=== PATIENT | female | born 1930 | race Caucasian/White ===

== ENCOUNTER 2016-11-28 10:41 | Inpatient (IN) | payer MEDICARE, MEDICAID ==
[~2016-11-28] VITALS: Ht 177.8 cm; Wt 89.6 kg
[2016-11-28 11:49] LABS: BASO # 0.1 K/mm3 (0.0-0.2); BASO % 1.5 % (0.0-1.0); EOS % 0.4 % (0.0-3.0); LARGE UNSTAINED CELL # 0.1 K/mm3 (0.0-0.4); LARGE UNSTAINED CELL % 1.3 % (0.0-4.0); LYMPH % 14.9 % (24.0-44.0); MEAN CORPUSCULAR HEMOGLOBIN 21.9 pg (27.0-33.0); MEAN CORPUSCULAR HGB CONC 29.6 g/dl (32.0-36.5); MEAN CORPUSCULAR VOLUME 74.1 fl (80.0-96.0); MONO # 0.4 K/mm3 (0.0-0.8); MONO % 7.1 % (0.0-5.0); NEUTROPHILS # 4.7 K/mm3 (1.8-7.7); NEUTROPHILS % 74.9 % (36.0-66.0); PLATELET COUNT, AUTOMATED 297 k/mm3 (150-450); RED CELL DISTRIBUTION WIDTH 19.4 % (11.5-14.5); WHITE BLOOD COUNT 6.2 K/mm3 (4.0-10.0)
[2016-11-28 11:50] LABS: INR 0.89
[2016-11-28 12:01] LABS: ADD MORPHOLOGY? YES
[2016-11-28 12:06] LABS: CALCIUM LEVEL 8.7 MG/DL (8.8-10.2); CREATININE FOR GFR 1.33 MG/DL (0.55-1.02); GLOMERULAR FILTRATION RATE 40.3 (>32); POTASSIUM SERUM 3.3 MEQ/L (3.5-5.1)
[2016-11-28 12:17] LABS: ANISOCYTOSIS 2+; HYPOCHROMASIA 2+; MICROCYTOSIS 2+; POIKILOCYTOSIS 1+
[2016-11-28] MEDS ORDERED: OMEP40CA2 PO (13:21)
[2016-11-28] MEDS ORDERED: ARIC5TAB PO (13:21)
[2016-11-28] MEDS ORDERED: VENL75TA2 PO (13:21)
[2016-11-28] MEDS ORDERED: ASPI81TA85 PO (13:21)
[2016-11-28] MEDS ORDERED: IBUPOTC PO (13:21)
[2016-11-28] MEDS ORDERED: SYNT75TA PO (13:21)
[2016-11-28] MEDS ORDERED: NORV5TAB PO (13:21)
[2016-11-28] MEDS ORDERED: ASPIRIN 325 MG TAB PO ONE (13:30)
[2016-11-28] MEDS ORDERED: ASPIRIN 81 MG CHEW TABLET As Ordered ONE (13:34)
[2016-11-28 20:00] VITALS: BP 144/91
[2016-11-28] MEDS ORDERED: ATORVASTATIN 20 MG TAB As Ordered ONE ×2 (20:08→20:47)
[2016-11-28] MEDS ORDERED: CLOPIDOGREL 75 MG TAB As Ordered ONE (20:08)
[2016-11-28] MEDS: CLOPIDOGREL 75 MG TAB PO SCH (20:11)
[2016-11-28] MEDS: ATORVASTATIN 20 MG TAB PO SCH ×2 (20:21→20:50)
[2016-11-28] MEDS: NS 1,000 ML IV SCH (21:56)
[2016-11-28 23:17] LABS: TOTAL PROTEIN 6.6 GM/DL (6.4-8.2)
[2016-11-29] VITALS (9 sets, daily range): BP systolic 144–159; BP diastolic 82–98
--- NOTE | 2016-11-29 05:46 | EDDOCDS ---
Physician Documentation [facility] Name: Rachael Samuel Age: 86 yrs Sex: Female : 1930 Arrival Date: 11/28/2016 Time: 10:41 Bed Admit Hold Private MD: Disposition: 11/28/16 13:17 Hospitalization ordered by Sinan Rodas for Inpatient Admission. 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 - Bed requested for M ICU. - Status is Inpatient Admission. [id number] - Condition is Stable. - Problem is new. - Symptoms are unchanged. Historical: - Allergies: no known allergies; - Home Meds: 1. Effexor 75 mg Oral tab 2 tab once daily 2. levothyroxine 75 mcg Oral cap once daily 3. Prilosec 40 mg Oral cpDR once daily 4. aspirin 81 mg Oral TbEC once daily - PMHx: Hypothyroidism; Hypertension; Dementia; - PSHx: left ankle; Cholecystectomy; cataract surgery; - Family history: Not pertinent. - Social history: Smoking status: Patient states former smoker of tobacco. No barriers to communication noted, The patient speaks fluent [place]ese, Speaks appropriately for age. - : The pt / caregiver states he / she is not on anticoagulants. Home medication list is obtained from family members, [employer]Portal import data. - Exposure Risk Screening:: None identified. Vital Signs: 11/28 10:47 BP 159 / 89; Pulse 92; Resp 18; Temp 97.7(O); Pulse Ox 97% on R/A; Weight 83.46 kg / ead 184 lbs (R); Height 5 ft. 10 in. (177.80 cm) (R); Pain 0/10; 11:28 Pulse 92 MON; Pulse Ox 96% ; ead 11:28 BP 156 / 97 (auto/); ead 11:43 BP 148 / 93 (auto/); ead 11:43 Pulse 92 MON; Pulse Ox 96% ; ead 11:58 BP 162 / 99 (auto/); ead 11:58 Pulse 92 MON; Pulse Ox 95% ; ead 12:13 BP 154 / 86 (auto/); ead 12:13 Pulse 90 MON; Pulse Ox 96% ; ead 12:28 BP 161 / 99 (auto/); ead 12:28 Pulse 92 MON; Pulse Ox 96% ; ead 13:20 BP 169 / 103 (auto/); ead 13:20 Pulse 92 MON; Pulse Ox 96% ; ead 13:28 BP 166 / 102 (auto/); ead 13:28 Pulse 92 MON; Pulse Ox 95% ; ead 13:43 BP 168 / 106 (auto/); ead 13:43 Pulse 88 MON; Pulse Ox 96% ; ead 13:58 BP 187 / 91 (auto/); ead 13:58 Pulse 90 MON; Pulse Ox 96% ; ead 14:18 Pulse 88 MON; Pulse Ox 95% ; ead 14:18 BP 182 / 88 (auto/); ead 14:28 BP 180 / 91 (auto/); ead 14:28 Pulse 96 MON; Resp 18; Pulse Ox 96% on R/A; ead 14:43 BP 166 / 94 (auto/); ead 14:43 Pulse 90 MON; Pulse Ox 95% ; ead 14:58 BP 164 / 91 (auto/); ead 14:58 Pulse 94 MON; Pulse Ox 95% ; ead 15:13 BP 135 / 75 (auto/); ead 15:21 Pulse 88 MON; Pulse Ox 95% ; ead 15:28 BP 148 / 77 (auto/); ead 15:29 Pulse 90 MON; Pulse Ox 95% ; ead 15:43 BP 144 / 88 (auto/); ead 15:44 Pulse 92 MON; Pulse Ox 94% ; ead 15:58 BP 137 / 86 (auto/); ead 16:00 Pulse 88 MON; Pulse Ox 94% ; ead 10:47 Body Mass Index 26.40 (83.46 kg, 177.80 cm) ead MDM: 10:54 RN interventions must not delay CT ordered. fg 10:54 Dynamo Tender/Pulse Ox/q 15 min VS ordered. fg 10:54 Accucheck ordered. fg 10:54 IV Saline Lock ordered. fg 10:54 Neuro VS q 15 Minutes ordered. fg 10:54 Patient must be on CC stretcher and weighed via bed scale ordered. fg 10:54 Rhythm Strip to chart ordered. fg 10:54 Stroke assessment pack to bedside ordered. fg 10:55 Basic Metabolic Profile Ordered. EDMS 10:55 CBC with Diff Ordered. EDMS 10:55 Partial Thromboplastin Time Ordered. EDMS 10:55 Prothrombin Time Profile\E\INR Ordered. EDMS 10:55 Type & Screen Ordered. EDMS 10:55 CT Head Without Contrast Ordered. EDMS 10:55 Chest, 1 View Ordered. EDMS 10:56 ECG WITH READING ER PHYS+CARDIAG ordered. EDMS 11:01 Financial registration complete. mm15 11:39 BED REQUEST+ADM ordered. EDMS 11:41 [facility] [place] into [employer] and attached to record. lg 12:03 RBC MORPH PROF NO CHARGE Ordered. EDMS 13:18 Aspirin 324 mg PO once ordered. fg 15:04 Admission / Observation Status ordered. EDMS 15:04 ECHOCARD,DOPPLER/COLOR FLOW ordered. EDMS 15:04 REGULAR DIET ordered. EDMS 15:05 CARDIAC MARKER PANEL Ordered. EDMS 15:05 CARDIAC MARKER PANEL Ordered. EDMS 15:05 ANTINUCLEAR ANTIBODIES Ordered. EDMS 15:05 ANTI-SJOGRENS A & B ANTIBODIES Ordered. EDMS 15:05 ERYTHROCYTE SEDIMENTATION RATE Ordered. EDMS 15:06 MRI Brain without Contrast Ordered. EDMS 15:06 MRA BRAIN W/O CONTRAST Ordered. EDMS 15:56 ANTI-CARDIOLIPIN ANTIBODIES Ordered. EDMS 16:08 Lupus Type Anticoagulant Ordered. EDMS 16:08 FACTOR II PROTHROMBIN GENE AN Ordered. EDMS 17:43 T-Sheet-- Draft Copy was scanned into [employer] and attached to record. klr 19:32 CARDIAC MARKER PANEL Ordered. EDMS 19:32 CBC WITH DIFFERENTIAL Ordered. EDMS 20:47 URINALYSIS Ordered. EDMS 20:47 URINE CULTURE Ordered. EDMS 23:24 COMPLETE COMPHRENSIVE METABOLI Ordered. EDMS 11/29 05:31 MRSA SCREEN Ordered. EDMS Administered Medications: 11/28 13:35 Drug: Aspirin 324 mg [aspirin 81 mg chewable tablet (4 tabs)] {Note: 3 tabs 81 mg ead given. daughter states pt had 1 tab 81mg at home this morning.} Route: PO; Signatures: Dispatcher [employer] EDMS Belia Holm, RN RN daFifi Nunez, Reg Reg lg Roseline Vargas RN RN [id number] Ed Gonzales mm15 Nella Cancino RN RN ead Steggeman, Michele, RN RN [facility] Birce, MD MD rena Trejo Kathie klr The chart was reviewed and I authenticate all verbal orders and agree with the evaluation and treatment provided.Corrections: (The following items were deleted from the chart) 11:03 10:56 Social history Smoking status: Patient states was never smoker of tobacco. No ead barriers to communication noted, The patient speaks fluent [place]ese, Speaks appropriately for age, ead 15:53 15:05 ANTI-CARDIOLIPIN ANTIBODIES ordered. EDMS EDMS 16:07 15:05 Lupus Type Anticoagulant ordered. EDMS EDMS 16:07 15:05 FACTOR II PROTHROMBIN GENE AN ordered. EDMS EDMS 22:23 22:16 ANTINUCLEAR ANTIBODIES ordered. EDMS EDMS 22:37 22:16 Lupus Type Anticoagulant ordered. EDMS EDMS 22:37 22:16 PROTEIN C ANTIGEN ordered. EDMS EDMS 22:38 22:16 PROTEIN S ANTIGEN(TOT&FREE) ordered. EDMS EDMS 22:38 22:16 SERUM PROTEIN ELECTROPHORESIS ordered. EDMS EDMS 22:38 22:16 ANTI THROMBIN 3 ANTIGEN LEVEL ordered. EDMS EDMS 23:24 19:32 COMPLETE COMPHRENSIVE METABOLI ordered. EDMS EDMS Attachments: 11:41 [facility] Payment Agreement lg 17:43 T-Sheet-- Draft Copy klr MTDD
--- NOTE | 2016-11-29 05:46 | EDDOCDS ---
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 ead reports pt can move right leg, but does not want to bare weight on right side. has not had BP meds today. blood glucose of 127. 20 gauge IV to left AC per EMS. Family reported pt has hx of dementia, reports pt is her normal mentation. The last date and time the patient was known to be well was was at 02:30 on November 27, 2016. An acute neurological deficit is present. The charge nurse has been notified. The patient has been moved to a treatment area. The patients blood glucose was checked before arriving to the hospital and was found to be normal. Adult Sepsis Screening: The patient does not have new or worsening altered mentation. Patient's respiratory rate is less than 22. Systolic blood pressure is greater than 100. Patient has a qSOFA score of 0- Negative Sepsis Screen. Suicide/Homicide risk assessment- the patient denies having any suicidal and/or homicidal ideations and does not present with any other emotional, behavioral or mental health complaints. Status: Patient is not a service director or dependent. Transition of care: patient was not received from another setting of care. 10:47 Acuity: VLADIMIR Level 3 ead 10:47 Method Of Arrival: Ambulance ead Triage Assessment: 10:47 The onset of the patients symptoms was more than three hours ago. General: Appears in ead no apparent distress, comfortable, well nourished, well groomed, Behavior is appropriate for age, cooperative, pleasant. Pain: Denies pain. The patient is triaged at the bedside. See Assessment in Nurses Notes section of ED record. Neurological: Level of Consciousness is awake, alert, obeys commands, Oriented to person, place, Flatbed Stitcher are equal bilaterally Weakness in right arm(s) leg(s) Speech is normal, Facial symmetry appears normal, Facial symmetry: tongue is midline, Pupils are PERRLA, equal sensation. Reports no additional symptoms. Cardiovascular: Chest pain is denied. Respiratory: Airway is patent Respiratory effort is even, unlabored. Derm: Skin is pink, warm & dry. Historical: - Allergies: no known allergies; - Home Meds: 1. Effexor 75 mg Oral tab 2 tab once daily 2. levothyroxine 75 mcg Oral cap once daily 3. Prilosec 40 mg Oral cpDR once daily 4. aspirin 81 mg Oral TbEC once daily - PMHx: Hypothyroidism; Hypertension; Dementia; - PSHx: left ankle; Cholecystectomy; cataract surgery; - Family history: Not pertinent. - Social history: Smoking status: Patient states former smoker of tobacco. No barriers to communication noted, The patient speaks fluent Taiwanese, Speaks appropriately for age. - : The pt / caregiver states he / she is not on anticoagulants. Home medication list is obtained from family members, [employer] import data. - Exposure Risk Screening:: None identified. Screenin:03 Screening information is obtained from family members. Fall risk: At risk due to right ead sided weakness. Assistance ADL's: Requires assistance with meal preparation, this assistance is provided by family members, Meals on Wheels, bathing, assistance is provided by family members, housework, assistance is provided by family members, medication administration, assistance is provided by family members. Nutritional screening: No deficits noted. Advance Directives: Currently, there is a health care proxy, Tatiana Samuel (daughter in law) Akshat Samuel (son). There is an active DNR order and the pt has a copy here at this time. There is no living will. There is no Power of Roller Shop Utility Worker. information regarding advance directives can be obtained from Tatiana [phone]. home support is adequate. 17:50 Abuse/DV Screen: The patient / caregiver reports he/she is: not in a situation that ead causes fear, pain or injury. Assessment: 11:52 Neurological: Level of Consciousness is awake, alert, obeys commands, Oriented to ead person, place, Flatbed Stitcher are equal bilaterally Weakness in right arm(s) leg(s) Speech is normal, Facial symmetry appears normal. Respiratory: Airway is patent Respiratory effort is even, unlabored. Derm: Skin is pink, warm & dry. 12:15 Neurological: Level of Consciousness is awake, alert, obeys commands, Oriented to ead person, place, Flatbed Stitcher are equal bilaterally Weakness in right arm(s) leg(s) Speech is normal, Facial symmetry appears normal. 12:30 Neurological: Level of Consciousness is awake, alert, obeys commands, Oriented to ead person, place, Flatbed Stitcher are equal bilaterally Weakness in right arm(s) leg(s). 13:00 General: Appears in no apparent distress, comfortable, Behavior is appropriate for age, ead cooperative. Pain: Denies pain. Neurological: Level of Consciousness is awake, alert, obeys commands, Oriented to person, place, Flatbed Stitcher are equal bilaterally Weakness in right arm(s) leg(s) Speech is normal, Facial symmetry appears normal. Respiratory: Airway is patent Respiratory effort is even, unlabored. Derm: Skin is pink, warm & dry. 13:15 Neurological: Level of Consciousness is awake, alert, obeys commands, Oriented to ead person, place, Flatbed Stitcher are equal bilaterally Weakness in right arm(s) leg(s) Speech is normal, Facial symmetry appears normal. 13:30 Neurological: Level of Consciousness is awake, alert, obeys commands, Oriented to ead person, place, Flatbed Stitcher are equal bilaterally Weakness in right arm(s) leg(s) Speech is normal, Facial symmetry appears normal. 14:35 General: Appears in no apparent distress, comfortable, Behavior is. General: ead Hospitalist COPIER FIELD SERVICE TECHNICIAN at bedside to examine pt. . Neurological: Level of Consciousness is awake, alert, obeys commands, Oriented to person, place. Respiratory: Airway is patent Respiratory effort is even, unlabored. Derm: Skin is pink, warm & dry. 14:50 General: Appears in no apparent distress, comfortable, Behavior is appropriate for age, ead cooperative. Neurological: Level of Consciousness is awake, alert, obeys commands, Oriented to person, place, Flatbed Stitcher are equal bilaterally Weakness in right arm(s) leg(s) Speech is normal, Facial symmetry appears normal. 15:15 Neurological: Level of Consciousness is awake, alert, obeys commands, Oriented to ead person, place, Flatbed Stitcher are equal bilaterally Weakness in right arm(s) leg(s) Speech is normal, Facial symmetry appears normal. 16:06 Adult Sepsis Screening: The patient does not have new or worsening altered mentation. ead Patient's respiratory rate is less than 22. Systolic blood pressure is greater than 100. Patient has a qSOFA score of 0- Negative Sepsis Screen. 17:05 General: pt to MRI via stretcher per ED YOUTH LIAISON OFFICER. . ead Vital Signs: 10:47 BP 159 / 89; Pulse 92; Resp 18; Temp 97.7(O); Pulse Ox 97% on R/A; Weight 83.46 kg (R); ead Height 5 ft. 10 in. (177.80 cm) (R); Pain 0/10; 11:28 Pulse 92 MON; Pulse Ox 96% ; ead 11:28 BP 156 / 97 (auto/); ead 11:43 BP 148 / 93 (auto/); ead 11:43 Pulse 92 MON; Pulse Ox 96% ; ead 11:58 BP 162 / 99 (auto/); ead 11:58 Pulse 92 MON; Pulse Ox 95% ; ead 12:13 BP 154 / 86 (auto/); ead 12:13 Pulse 90 MON; Pulse Ox 96% ; ead 12:28 BP 161 / 99 (auto/); ead 12:28 Pulse 92 MON; Pulse Ox 96% ; ead 13:20 BP 169 / 103 (auto/); ead 13:20 Pulse 92 MON; Pulse Ox 96% ; ead 13:28 BP 166 / 102 (auto/); ead 13:28 Pulse 92 MON; Pulse Ox 95% ; ead 13:43 BP 168 / 106 (auto/); ead 13:43 Pulse 88 MON; Pulse Ox 96% ; ead 13:58 BP 187 / 91 (auto/); ead 13:58 Pulse 90 MON; Pulse Ox 96% ; ead 14:18 Pulse 88 MON; Pulse Ox 95% ; ead 14:18 BP 182 / 88 (auto/); ead 14:28 BP 180 / 91 (auto/); ead 14:28 Pulse 96 MON; Resp 18; Pulse Ox 96% on R/A; ead 14:43 BP 166 / 94 (auto/); ead 14:43 Pulse 90 MON; Pulse Ox 95% ; ead 14:58 BP 164 / 91 (auto/); ead 14:58 Pulse 94 MON; Pulse Ox 95% ; ead 15:13 BP 135 / 75 (auto/); ead 15:21 Pulse 88 MON; Pulse Ox 95% ; ead 15:28 BP 148 / 77 (auto/); ead 15:29 Pulse 90 MON; Pulse Ox 95% ; ead 15:43 BP 144 / 88 (auto/); ead 15:44 Pulse 92 MON; Pulse Ox 94% ; ead 15:58 BP 137 / 86 (auto/); ead 16:00 Pulse 88 MON; Pulse Ox 94% ; ead 10:47 Body Mass Index 26.40 (83.46 kg, 177.80 cm) ead Vitals: 10:41 Glucose Measurement D-stick done by EMS. Log In Time N/A - ambulance arrival. ead ED Course: 10:42 Patient visited by Renee Anaya, Layboy Tender. deg 10:42 Patient moved to Waiting deg 10:43 Nella Cancino RN is Primary Nurse. deg 10:43 Maya Brice MD is Attending Physician. fg 10:43 Patient visited by Maya Brice MD. fg 10:43 Patient moved to 10 deg 10:53 Triage Initiated ead 11:05 EKG done. (by ED staff). Reviewed by Maya Brice MD. rn1 11:07 Patient visited by Nella Cancino RN. ead 11:36 Patient visited by Nella Cancino,JOSEFINA. ead 11:37 The patient / caregiver is instructed regarding the plan of care and ED course. Patient ead has correct armband on for positive identification. Placed in gown. Bed in low position. Call light in reach. Side rails up X 1. Adult w/ patient. youth nutritional monitor on. Pulse ox on. NIBP on. 11:37 Basic Metabolic Profile Sent. ead 11:37 CBC with Diff Sent. ead 11:37 Partial Thromboplastin Time Sent. ead 11:37 Prothrombin Time Profile\E\INR Sent. ead 11:37 Maintain field IV. Dressing intact. Good blood return noted. Site clean & dry. Gauge & ead site: 20 LEFT AC PER EMS. 11:38 Type & Screen Sent. ead 11:41 [facility] Payment Agreement was scanned into [employer] and attached to record. lg 12:34 Patient visited by Nella Cancino,JOSEFINA. ead 13:17 Sinan Rodas MD is Hospitalizing Provider. fg 17:13 Patient moved to [facility] nb2 17:43 T-Sheet-- Draft Copy was scanned into [employer] and attached to record. klr 18:04 Patient moved to 21 dls 18:42 Patient visited by Kelly Pichardo. nb2 18:42 Assisted with bedpan. nb2 19:15 Patient moved to Admit Hold [facility] 11/29 02:54 Primary Nurse role handed off by Nella CancinoRN harshal Administered Medications: 11/28 13:35 Drug: Aspirin 324 mg [aspirin 81 mg chewable tablet (4 tabs)] {Note: 3 tabs 81 mg ead given. daughter states pt had 1 tab 81mg at home this morning.} Route: PO; Order Results: Lab Order: Basic Metabolic Profile; SPEC'M 11/28/16 11:34 Test: GLUCOSE, FASTING; Value: 129; Range: 83-110; Abnormal: Above high normal; Units: MG/DL; Status: F Test: BLOOD UREA NITROGEN; Value: 22; Range: 7-18; Abnormal: Above high normal; Units: MG/DL; Status: F Test: CREATININE FOR GFR; Value: 1.33; Range: 0.55-1.02; Abnormal: Above high normal; Units: MG/DL; Status: F Test: GLOMERULAR FILTRATION RATE; Value: 40.3; Range: >32; Status: F Test: SODIUM LEVEL; Value: 143; Range: 136-145; Units: MEQ/L; Status: F Test: POTASSIUM SERUM; Value: 3.3; Range: 3.5-5.1; Abnormal: Below low normal; Units: MEQ/L; Status: F Test: CHLORIDE LEVEL; Value: 107; Range: 98-107; Units: MEQ/L; Status: F Test: CARBON DIOXIDE LEVEL; Value: 28; Range: 21-32; Units: MEQ/L; Status: F Test: ANION GAP; Value: 8; Range: 8-16; Units: MEQ/L; Status: F Test: CALCIUM LEVEL; Value: 8.7; Range: 8.8-10.2; Abnormal: Below low normal; Units: MG/DL; Status: F Test Note: ; Units are mL/min/1.73 m2 Chronic Kidney Disease Staging per NKF: Stage I & II GFR >=60 Normal to Mildly Decreased Stage III GFR 30-59 Moderately Decreased Stage IV GFR 15-29 Severely Decreased Stage V GFR <15 Very Little GFR Left ESRD GFR <15 on SPINNING BATH PATROLLER Lab Order: CBC with Diff; SPEC'M 11/28/16 11:34 Test: WHITE BLOOD COUNT; Value: 6.2; Range: 4.0-10.0; Units: K/mm3; Status: F Test: RED BLOOD COUNT; Value: 4.80; Range: 4.00-5.40; Units: M/mm3; Status: F Test: HEMOGLOBIN; Value: 10.5; Range: 12.0-16.0; Abnormal: Below low normal; Units: g/dl; Status: F Test: HEMATOCRIT; Value: 35.6; Range: 36.0-47.0; Abnormal: Below low normal; Units: %; Status: F Test: MEAN CORPUSCULAR VOLUME; Value: 74.1; Range: 80.0-96.0; Abnormal: Below low normal; Units: fl; Status: F Test: MEAN CORPUSCULAR HEMOGLOBIN; Value: 21.9; Range: 27.0-33.0; Abnormal: Below low normal; Units: pg; Status: F Test: MEAN CORPUSCULAR HGB CONC; Value: 29.6; Range: 32.0-36.5; Abnormal: Below low normal; Units: g/dl; Status: F Test: RED CELL DISTRIBUTION WIDTH; Value: 19.4; Range: 11.5-14.5; Abnormal: Above high normal; Units: %; Status: F Test: PLATELET COUNT, AUTOMATED; Value: 297; Range: 150-450; Units: k/mm3; Status: F Test: NEUTROPHILS %; Value: 74.9; Range: 36.0-66.0; Abnormal: Above high normal; Units: %; Status: F Test: LYMPH %; Value: 14.9; Range: 24.0-44.0; Abnormal: Below low normal; Units: %; Status: F Test: MONO %; Value: 7.1; Range: 0.0-5.0; Abnormal: Above high normal; Units: %; Status: F Test: EOS %; Value: 0.4; Range: 0.0-3.0; Units: %; Status: F Test: BASO %; Value: 1.5; Range: 0.0-1.0; Abnormal: Above high normal; Units: %; Status: F Test: LARGE UNSTAINED CELL %; Value: 1.3; Range: 0.0-4.0; Units: %; Status: F Test: NEUTROPHILS #; Value: 4.7; Range: 1.8-7.7; Units: K/mm3; Status: F Test: LYMPH #; Value: 1.0; Range: 1.5-4.5; Abnormal: Below low normal; Units: K/mm3; Status: F Test: MONO #; Value: 0.4; Range: 0.0-0.8; Units: K/mm3; Status: F Test: EOS #; Value: 0.0; Range: 0.0-0.50; Units: K/mm3; Status: F Test: BASO #; Value: 0.1; Range: 0.0-0.2; Units: K/mm3; Status: F Test: LARGE UNSTAINED CELL #; Value: 0.1; Range: 0.0-0.4; Units: K/mm3; Status: F Lab Order: Partial Thromboplastin Time; [facility] 11/28/16 11:34 Test: PARTIAL THROMBOPLASTIN TIME; Value: 25.9; Range: 26.6-37.1; Abnormal: Below low normal; Units: SECONDS; Status: F Lab Order: Prothrombin Time Profile\E\INR; [facility] 11/28/16 11:34 Test: PROTHROMBIN TIME; Value: 12.1; Range: 12.3-14.5; Abnormal: Below low normal; Units: SECONDS; Status: F Test: INR; Value: 0.89; Status: F Test Note: ; THERAPUTIC HUMAN INR VALUES INDICATIONS NORMAL RANGES PROPHYLAXIS/TREATMENT OF: VENOUS THROMBOSIS 2.0-3.0 PULMONARY EMBOLISM 2.0-3.0 PREVENTION OF SYSTEMIC EMBOLISM FROM: TISSUE HEART VALVES 2.0-3.0 ACUTE MYOCARDIAL INFARCTION 2.0-3.0 VALVULAR HEART DISEASE 2.0-3.0 ATRIAL FIBRILLATION 2.0-3.0 MECHANICAL VALVES(HIGH RISK) 2.5-3.5 RECURRENT MYOCARDIAL INFARCTION 2.5-3.5 Lab Order: Type & Screen; [facility] 11/28/16 11:34 Test: BLOOD TYPE; Value: O POS; Status: F Test: AB SCREEN (INDIRECT VÍCTOR)GEL; Value: NEGATIVE; Status: F Lab Order: RBC MORPH PROF NO CHARGE; [facility] 11/28/16 11:34 Test: PLATELET ESTIMATE; Range: NORMAL; Status: I Test: HYPOCHROMASIA; Value: 2+; Status: F Test: POIKILOCYTOSIS; Value: 1+; Status: F Test: ANISOCYTOSIS; Value: 2+; Status: F Test: MICROCYTOSIS; Value: 2+; Status: F Test: PLATELET ESTIMATE; Value: NORMAL; Range: NORMAL; Status: F Lab Order: CARDIAC MARKER PANEL; [facility] 11/28/16 16:05 Test: CPK CREATINE PHOSPHOKINASE; Value: 215; Range: 26-192; Abnormal: Above high normal; Units: U/L; Status: F Test: CK-MB VALUE MASS; Value: 2.0; Range: 0.0-3.6; Units: NG/ML; Status: F Test: MB/CK RELATIVE INDEX; Value: 0.93; Range: < OR =4; Status: F Test: TROPONIN I; Value: 0.03; Range: < 0.10; Units: NG/ML; Status: F Test Note: ; DIAGNOSIS CRITERIA MMB ng/ml Relative Index (RI) NON-AMI < or = 5 N/A MADRID ZONE > 5 < or = 4 AMI > 5 > 4 Lab Order: CARDIAC MARKER PANEL; [facility] 11/28/16 22:30 Test: CPK CREATINE PHOSPHOKINASE; Value: 271; Range: 26-192; Abnormal: Above high normal; Units: U/L; Status: F Test: CK-MB VALUE MASS; Value: 2.1; Range: 0.0-3.6; Units: NG/ML; Status: F Test: MB/CK RELATIVE INDEX; Value: 0.77; Range: < OR =4; Status: F Test: TROPONIN I; Value: 0.02; Range: < 0.10; Abnormal: Delta; Units: NG/ML; Status: F Test Note: ; DIAGNOSIS CRITERIA MMB ng/ml Relative Index (RI) NON-AMI < or = 5 N/A MADRID ZONE > 5 < or = 4 AMI > 5 > 4 Lab Order: ERYTHROCYTE SEDIMENTATION RATE; [facility] 11/28/16 11:34 Test: ERYTHROCYTE SEDIMENTATION RATE; Value: 15; Range: 0-42; Units: mm/hr; Status: F Lab Order: SERUM PROTEIN ELECTROPHORESIS; SPEC'M 11/28/16 22:30 Test: ALBUMIN %; Range: 55.8-66.1; Units: %; Status: I Test: YTTIN-0-OANQLZES %; Range: 2.9-4.9; Units: %; Status: I Test: OBUVF-1-MXABYNYEA %; Range: 7.1-11.8; Units: %; Status: I Test: OHCN-3-JUCBUCFYH %; Range: 4.7-7.2; Units: %; Status: I Test: VDHV-5-DYHOCGUPS %; Range: 3.2-6.5; Units: %; Status: I Test: GAMMA GLOBULIN %; Range: 11.1-18.8; Units: %; Status: I Test: ALBUMIN; Range: 3.29-5.55; Units: GM/DL; Status: I Test: UUSBX-2-QIWAEQSRG; Range: 0.17-0.41; Units: GM/DL; Status: I Test: XDRUL-4-BXIJTKPVC; Range: 0.42-0.99; Units: GM/DL; Status: I Test: IZDL-6-TDROHGNWW; Range: 0.28-0.60; Units: GM/DL; Status: I Test: VOVL-8-ULBDNJNLC; Range: 0.19-0.55; Units: GM/DL; Status: I Test: GAMMA GLOBULINS; Range: 0.65-1.58; Units: GM/DL; Status: I Test: TOTAL PROTEIN; Value: 6.6; Range: 6.4-8.2; Units: GM/DL; Status: F Test: SPEP INTERPRETATION; Status: I Outcome: 13:17 Decision to Hospitalize by Provider. fg 17:50 CT Study completed. MRI Study completed. ead 17:50 Discharge Assessment: patient administered narcotics - no. ead 11/29 05:45 Patient left the ED. sls1 Signatures: Renee Anaya, Layboy Tender Unit deg Marti Trujillo RN RN Fifi Collazo, Martin Reg lg Roseline Vargas RN RN sls1 Chris Saravia RN RN jmb Dunaway, EmilyRN RN ead Kenji Langley rn1 Maya Brice MD MD Zuleyma Calvin Nicole nb2 Corrections: (The following items were deleted from the chart) 11/28 11:03 10:47 BP 159 / 89; Pulse 92bpm; Resp 18bpm; Pulse Ox 97% RA; Temp 97.7F Oral; Pain ead 0/10; ead 11: 10:56 Social history Smoking status: Patient states was never smoker of tobacco. No ead barriers to communication noted, The patient speaks fluent Taiwanese, Speaks appropriately for age, ead 11:03 Advance Directives: Currently, there is no health care proxy. There is an active ead DNR order and the pt has a copy here at this time. There is no living will. There is no Power of Roller Shop Utility Worker. ead 10:47 Presenting complaint: EMS states: right arm weakness since 0230 yesterday ead morning. reports pt can move right leg, but does not want to bare weight on right side. has not had BP meds today. blood glucose od 127. 20 gauge IV to left AC per EMS. Family reported pt has hx of dementia, reports pt is her normal mentation. ead MTDD
[2016-11-29] MEDS: LEVOTHYROXINE 0.075 MG TAB (75 MCG) PO SCH (06:15)
[2016-11-29 07:04] LABS: BASO # 0.1 K/mm3 (0.0-0.2); BASO % 1.4 % (0.0-1.0); EOS # 0.1 K/mm3 (0.0-0.50); EOS % 0.8 % (0.0-3.0); LARGE UNSTAINED CELL # 0.1 K/mm3 (0.0-0.4); LARGE UNSTAINED CELL % 1.7 % (0.0-4.0); LYMPH # 1.3 K/mm3 (1.5-4.5); MEAN CORPUSCULAR HGB CONC 30.1 g/dl (32.0-36.5); MEAN CORPUSCULAR VOLUME 73.1 fl (80.0-96.0); MONO # 0.5 K/mm3 (0.0-0.8); MONO % 6.6 % (0.0-5.0); NEUTROPHILS # 5.1 K/mm3 (1.8-7.7); NEUTROPHILS % 72.5 % (36.0-66.0); PLATELET COUNT, AUTOMATED 296 k/mm3 (150-450); RED CELL DISTRIBUTION WIDTH 19.4 % (11.5-14.5); WHITE BLOOD COUNT 7.1 K/mm3 (4.0-10.0)
[2016-11-29 07:08] LABS: ALBUMIN 3.3 GM/DL (3.2-5.2); ALBUMIN/GLOBULIN RATIO 1.1 (1.00-1.93); BILIRUBIN,TOTAL 0.4 MG/DL (0.2-1.0); CALCIUM LEVEL 8.4 MG/DL (8.8-10.2); CREATININE FOR GFR 1.16 MG/DL (0.55-1.02); GLOMERULAR FILTRATION RATE 47.2 (>32); POTASSIUM SERUM 3.5 MEQ/L (3.5-5.1); TOTAL PROTEIN 6.3 GM/DL (6.4-8.2)
[2016-11-29 07:32] LABS: ADD MORPHOLOGY? YES
[2016-11-29 07:56] LABS: ANISOCYTOSIS 2+; HYPOCHROMASIA 2+; MICROCYTOSIS 2+; POIKILOCYTOSIS 1+
[2016-11-29] MEDS ORDERED: OMEPRAZOLE 20 MG CAP PO SCH (09:00)
[2016-11-29] MEDS ORDERED: VENLAFAXINE **XR** 75MG CAPSULE PO SCH (09:00)
[2016-11-29] MEDS: VENLAFAXINE 37.5 MG TAB PO SCH (09:20)
[2016-11-29] MEDS: DONEPEZIL 5 MG TAB PO SCH (09:21)
[2016-11-29] MEDS: ASPIRIN 81 MG ENTERIC TAB PO SCH (09:21)
[2016-11-29] MEDS: CLOPIDOGREL 75 MG TAB PO SCH (09:21)
[2016-11-29] MEDS: PANTOPRAZOLE 40MG TAB (PROTONIX) PO SCH (09:21)
--- NOTE | 2016-11-29 09:26 | IPNPDOC ---
Assessment/Plan Date Seen The patient was seen on 11/29/16. Family Medicine Attending Note: I saw and examined Mrs. Samuel, discussed with GURVINDER Malcolm. Agree with their note as documented. Mrs. Samuel is doing about the same today. Nursing feels that possibly her strength is improving a little in the lower extremity; I am not able to detect a substantial difference from yesterday, but they examine her more. Anticipating evaluation by occupational and physical therapies tomorrow. The patient and her daughter-in- law are aware that she is likely to need, at minimum, subacute rehabilitation after this episode. They are aware she may not be able to return to her home setting. I discussed her care today with Dr. Indio Saleem. He feels strongly that she should be on Coumadin and low-dose aspirin. The Plavix was stopped in favor of Coumadin. We will begin monitoring her INRs tomorrow. (configuration manager) Problems Problems: (1) CVA (cerebral vascular accident) Status: Acute Response to Treatment: Stable Discussed With: Patient, Family with Pt Consent Problem Specific Plan: Consult Specialist, Monitor Clinically Problem Text: 11/29: Change Plavix in favor of Coumadin per neurology's recommendation. 11/28: Dr Saleem consulted by Dr Rodas. She was on ASA 81 prior to admission, added Plavix 75 mg daily, HD statin (has h/o intolerability with leg pains - monitor), MRI/MRA done, report pending. ECHO ordered. PT/OT ordered. She previously resided at home alone, with close family support. (2) Dementia Status: Chronic Problem Specific Plan: Monitor Clinically Problem Text: Counseled family that her symptoms may worsen while in the hospital d/t change in setting. She seems to be doing ok today. (3) Hypothyroidism Status: Acute Problem Specific Plan: Monitor Clinically Problem Text: Cont home dose replacement. Plan / VTE VTE Prophylaxis Ordered?: Yes (formally anticoagulated with Coumadin) Subjective Review of Systems CC/HPI Pt's family at bedside. They have no new concerns. The pt states that she did not sleep well last night. General: Reports: Fatigue Constitutional: Denies: Chills, Fever ENT: Denies: Head Aches Pulmonary: Denies: Cough, Dyspnea Cardiovascular: Denies: Chest Pain, Palpitations Gastrointestinal: Denies: Diarrhea, Nausea, Vomiting Neurological: Reports: Weakness Psych: Reports: Mood Normal Objective Physical Examination General Exam: Positive: Alert, No Acute Distress ENT Exam: Positive: Mucous membr. moist/pink Chest Exam: Positive: Clear to auscultation, Normal air movement Heart Exam: Positive: Normal S1, Normal S2, Rate Normal Abdomen Exam: Positive: Normal bowel sounds, Soft, Negative: Tenderness Extremity Exam: Positive: Edema Neuro Exam: Positive: Normal Speech, Reflexes 2+, Sensation Intact, Negative: Strength at 5/5 X4 ext (RUE, RLE strength 3/5) Psych Exam: Positive: Mood NL, Negative: Memory Intact, Oriented x 3 (to person only) Vital Signs/I&O Vital Signs Date Time Temp Pulse Resp B/P Pulse Ox O2 Delivery O2 Flow Rate FiO2 11/29/16 08:00 97.9 80 20 144/92 98 Room Air I&O- Last 24 Hours up to 6 AM 11/29/16 06:00 Intake Total 80 ml Output Total 0 ml Balance 80 ml Laboratory Data Labs 24H Laboratory Tests 2 11/28/16 11:34: Activated Partial Thromboplast Time 25.9L, Anion Gap 8, Anisocytosis 2+, White Blood Count 6.2, Red Blood Count 4.80, Hemoglobin 10.5L, Hematocrit 35.6L, Mean Corpuscular Volume 74.1L, Mean Corpuscular Hemoglobin 21.9L, Mean Corpuscular Hemoglobin Concent 29.6L, Red Cell Distribution Width 19.4H, Platelet Count 297 , Neutrophils (%) (Auto) 74.9H, Lymphocytes (%) (Auto) 14.9L, Monocytes (%) ( Auto) 7.1H, Eosinophils (%) (Auto) 0.4, Basophils (%) (Auto) 1.5H, Neutrophils # (Auto) 4.7, Lymphocytes # (Auto) 1.0L, Monocytes # (Auto) 0.4, Eosinophils # ( Auto) 0.0, Basophils # (Auto) 0.1, Blood Urea Nitrogen 22H, Creatinine 1.33H, Sodium Level 143, Potassium Level 3.3L, Chloride Level 107, Carbon Dioxide Level 28, Calcium Level 8.7L, Erythrocyte Sedimentation Rate 15, Glomerular Filtration Rate 40.3, Hypochromasia 2+, Large Unclassified Cells # 0.1, Large Unclassified Cells % 1.3, Microcytosis 2+, Platelet Estimate NORMAL, Poikilocytosis 1+, Prothromb Time International Ratio 0.89, Prothrombin Time 12.1L 11/28/16 16:05: Creatine Kinase MB 2.0, Creatine Kinase MB Relative Index 0.93, Total Creatine Kinase 215H, Troponin I 0.03 11/28/16 22:29: 11/28/16 22:30: Creatine Kinase MB 2.1, Creatine Kinase MB Relative Index 0.77, Total Creatine Kinase 271H, Troponin I 0.02#, Total Protein 6.6 11/29/16 06:30: Blood Urea Nitrogen 21H, Creatinine 1.16H, Sodium Level 145, Potassium Level 3.5 , Chloride Level 109H, Carbon Dioxide Level 26, Calcium Level 8.4L, Aspartate Amino Transf (AST/SGOT) 15, Alanine Aminotransferase (ALT/SGPT) 8L, Total Creatine Kinase 307H, Alkaline Phosphatase 85, Total Bilirubin 0.4, Total Protein 6.3L, Albumin 3.3, Albumin/Globulin Ratio 1.10, Anion Gap 10, Anisocytosis 2+, White Blood Count 7.1, Red Blood Count 4.76, Hemoglobin 10.5L, Hematocrit 34.8L, Mean Corpuscular Volume 73.1L, Mean Corpuscular Hemoglobin 22.0L, Mean Corpuscular Hemoglobin Concent 30.1L, Red Cell Distribution Width 19.4H, Platelet Count 296, Neutrophils (%) (Auto) 72.5H, Lymphocytes (%) (Auto) 17.0L, Monocytes (%) (Auto) 6.6H, Eosinophils (%) (Auto) 0.8, Basophils (%) ( Auto) 1.4H, Neutrophils # (Auto) 5.1, Lymphocytes # (Auto) 1.3L, Monocytes # ( Auto) 0.5, Eosinophils # (Auto) 0.1, Basophils # (Auto) 0.1, Creatine Kinase MB 3.1, Creatine Kinase MB Relative Index 1.00, Glomerular Filtration Rate 47.2, Hypochromasia 2+, Large Unclassified Cells # 0.1, Large Unclassified Cells % 1.7 , Microcytosis 2+, Platelet Estimate NORMAL, Poikilocytosis 1+, Troponin I 0.03# CBC/BMP Laboratory Tests 11/28/16 11:34 Calcium Level 8.7 L, Red Blood Count 4.80, Mean Corpuscular Volume 74.1 L, Mean Corpuscular Hemoglobin 21.9 L, Mean Corpuscular Hemoglobin Concent 29.6 L, Red Cell Distribution Width 19.4 H, Neutrophils (%) (Auto) 74.9 H, Lymphocytes (%) ( Auto) 14.9 L, Monocytes (%) (Auto) 7.1 H, Eosinophils (%) (Auto) 0.4, Basophils (%) (Auto) 1.5 H, Neutrophils # (Auto) 4.7, Lymphocytes # (Auto) 1.0 L, Monocytes # (Auto) 0.4, Eosinophils # (Auto) 0.0, Basophils # (Auto) 0.1 11/29/16 06:30 Calcium Level 8.4 L, Red Blood Count 4.76, Mean Corpuscular Volume 73.1 L, Mean Corpuscular Hemoglobin 22.0 L, Mean Corpuscular Hemoglobin Concent 30.1 L, Red Cell Distribution Width 19.4 H, Neutrophils (%) (Auto) 72.5 H, Lymphocytes (%) ( Auto) 17.0 L, Monocytes (%) (Auto) 6.6 H, Eosinophils (%) (Auto) 0.8, Basophils (%) (Auto) 1.4 H, Neutrophils # (Auto) 5.1, Lymphocytes # (Auto) 1.3 L, Monocytes # (Auto) 0.5, Eosinophils # (Auto) 0.1, Basophils # (Auto) 0.1, Aspartate Amino Transf (AST/SGOT) 15, Alanine Aminotransferase (ALT/SGPT) 8 L, Total Creatine Kinase 307 H, Alkaline Phosphatase 85, Total Bilirubin 0.4, Total Protein 6.3 L, Albumin 3.3 Microbiology Microbiology 11/29/16 MRSA Screen, Received Pending ZULY DRIVER PA-C Nov 29, 2016 09:25 Sinan Rodas MD Nov 29, 2016 20:34
[2016-11-29] MEDS: NS 1,000 ML IV SCH ×2 (09:39→21:08)
--- NOTE | 2016-11-29 13:22 | REP ---
MRA BRAIN: HISTORY: Right sided weakness. 3D [id number] MR angiography was performed at the level of the [place]. There is no aneurysm or arteriovenous malformation. Mild atherosclerotic disease involves the cavernous and supraclinoid internal carotid arteries and the distal posterior cerebral artery. Major intracranial vessels are patent. The right vertebral artery terminates in the right posterior inferior cerebellar artery. The left vertebral artery is dominant. IMPRESSION: 1. There is no aneurysm or arteriovenous malformation. 2. Atherosclerotic disease as described above. MTDD
--- NOTE | 2016-11-29 15:35 | ECGEPIP ---
Stationary ECG Study [facility] - ED Test Date: 2016-11-28 Pat Name: RAFAEL GONZALEZ Department: Room: - Gender: F Compliance Nurse: rn : 1930 Requested By: QUINTIN Steen Order Number: [id number] Reading MD: Tyra Bourne Measurements Intervals [employer] Rate: 89 P: 34 CO: 195 QRS: -44 QRSD: 149 T: 2 QT: 406 QTc: 496 Interpretive Statements SINUS RHYTHM MARKED LEFT AXIS DEVIATION RIGHT BUNDLE BRANCH BLOCK NO PRIOR FOR COMPARISON Electronically Signed On 11-29-2016 15:35:00 EST by Tyra Bourne
[2016-11-29] MEDS: WARFARIN SOD 5 MG TAB PO SCH (17:10)
[2016-11-29] MEDS: DOCUSATE SODIUM 100 MG CAP PO SCH (21:07)
[2016-11-29] MEDS: ATORVASTATIN 20 MG TAB PO SCH (21:08)
[2016-11-30 05:25] VITALS: BP 166/99
[2016-11-30 05:44] LABS: BASO % 0.8 % (0.0-1.0); EOS # 0.1 K/mm3 (0.0-0.50); LARGE UNSTAINED CELL # 0.2 K/mm3 (0.0-0.4); LARGE UNSTAINED CELL % 2.4 % (0.0-4.0); LYMPH # 1.2 K/mm3 (1.5-4.5); LYMPH % 19.7 % (24.0-44.0); MEAN CORPUSCULAR HEMOGLOBIN 22.3 pg (27.0-33.0); MEAN CORPUSCULAR HGB CONC 29.5 g/dl (32.0-36.5); MEAN CORPUSCULAR VOLUME 75.5 fl (80.0-96.0); MONO # 0.4 K/mm3 (0.0-0.8); MONO % 6.7 % (0.0-5.0); NEUTROPHILS # 4.2 K/mm3 (1.8-7.7); NEUTROPHILS % 69.4 % (36.0-66.0); PLATELET COUNT, AUTOMATED 312 k/mm3 (150-450); RED CELL DISTRIBUTION WIDTH 18.1 % (11.5-14.5); WHITE BLOOD COUNT 6.1 K/mm3 (4.0-10.0)
[2016-11-30 05:45] LABS: INR 0.93
[2016-11-30 05:56] LABS: ALBUMIN/GLOBULIN RATIO 0.91 (1.00-1.93); BILIRUBIN,TOTAL 0.4 MG/DL (0.2-1.0); CALCIUM LEVEL 8.2 MG/DL (8.8-10.2); CREATININE FOR GFR 1.07 MG/DL (0.55-1.02); GLOMERULAR FILTRATION RATE 51.8 (>32); POTASSIUM SERUM 3.1 MEQ/L (3.5-5.1); TOTAL PROTEIN 6.3 GM/DL (6.4-8.2)
[2016-11-30] MEDS: LEVOTHYROXINE 0.075 MG TAB (75 MCG) PO SCH (06:12)
[2016-11-30 08:00] VITALS: BP 152/94
--- NOTE | 2016-11-30 08:11 | IPNPDOC ---
Assessment/Plan Date Seen The patient was seen on 11/30/16. Family Medicine Attending Note: I saw and examined Ms. Samuel today; I d/w GURVINDER Burnette and I agree with his note below. The patient's daughter-in- law is at bedside and is concerned regarding the patient's difficulty sleeping in the hospital setting - I explained that sleeping medications should be used with caution in elderly people and could make her confusion worse. The patient' s [id number] states that she typically gives the patient 2 regular strength tylenol at bedtime which seems to help her sleep, so I ordered tylenol PRN. I also added a one-time dose of potassium as K+ was low at 3.1 this morning and stopped her IVF. I discussed with her nurse - as the patient's neuro status has been stable since admission and we are planning for discharge to subacute rehab in the near future, I will d/c neurochecks and transfer to med /surg. (KES) Problems Problems: (1) CVA (cerebral vascular accident) Status: Acute Response to Treatment: Stable Discussed With: Patient, Family with Pt Consent Problem Specific Plan: Consult Specialist, Monitor Clinically Problem Text: 11/30 - Coumadin started yesterday. INR 0.93 this AM. On Aspirin 81 mg. 11/29: Change Plavix in favor of Coumadin per neurology's recommendation. 11/28: Dr Saleem consulted by Dr Rodas. She was on ASA 81 prior to admission, added Plavix 75 mg daily, HD statin (has h/o intolerability with leg pains - monitor), MRI/MRA done, report pending. ECHO ordered. PT/OT ordered. She previously resided at home alone, with close family support. (2) Dementia Status: Chronic Problem Specific Plan: Monitor Clinically Problem Text: Counseled family that her symptoms may worsen while in the hospital d/t change in setting. She seems to be doing ok today. (3) Hypothyroidism Status: Acute Problem Specific Plan: Monitor Clinically Problem Text: Cont home dose replacement. Plan / VTE VTE Prophylaxis Ordered?: Yes (formally anticoagulated with Coumadin) Subjective Review of Systems CC/HPI The patient is a 86-year-old female admitted with a reason for visit of CVA. Events since last encounter Pt denies any new issues. Daughter at bedside and states pt did not sleep well last night. Pt denies SOB and CP. Constitutional: Denies: Chills, Fever Pulmonary: Denies: Dyspnea Cardiovascular: Denies: Chest Pain Gastrointestinal: Denies: Abdominal Pain, Nausea, Vomiting Objective Physical Examination General Exam: Positive: Alert, No Acute Distress ENT Exam: Positive: Mucous membr. moist/pink Chest Exam: Positive: Clear to auscultation, Normal air movement Heart Exam: Positive: Normal S1, Normal S2, Rate Normal Abdomen Exam: Positive: Normal bowel sounds, Soft, Negative: Tenderness Extremity Exam: Positive: Edema Neuro Exam: Positive: Normal Speech, Reflexes 2+, Sensation Intact, Negative: Strength at 5/5 X4 ext (RUE, RLE strength 3/5) Psych Exam: Positive: Mood NL, Negative: Memory Intact, Oriented x 3 (to person only) Vital Signs/I&O Vital Signs Date Time Temp Pulse Resp B/P Pulse Ox O2 Delivery O2 Flow Rate FiO2 11/30/16 05:25 97.0 75 18 166/99 98 Room Air I&O- Last 24 Hours up to 6 AM 11/30/16 06:00 Intake Total 3360 ml Output Total 0 ml Balance 3360 ml Laboratory Data Labs 24H Laboratory Tests 2 11/30/16 04:50: Blood Urea Nitrogen 20H, Creatinine 1.07H, Sodium Level 146H, Potassium Level 3.1L, Chloride Level 110H, Carbon Dioxide Level 26, Calcium Level 8.2L, Aspartate Amino Transf (AST/SGOT) 14L, Alanine Aminotransferase (ALT/SGPT) 9L, Total Creatine Kinase 219H, Alkaline Phosphatase 78, Total Bilirubin 0.4, Total Protein 6.3L, Albumin 3.0L, Albumin/Globulin Ratio 0.91L, Anion Gap 10, White Blood Count 6.1, Red Blood Count 4.45, Hemoglobin 9.9L, Hematocrit 33.6L, Mean Corpuscular Volume 75.5L, Mean Corpuscular Hemoglobin 22.3L, Mean Corpuscular Hemoglobin Concent 29.5L, Red Cell Distribution Width 18.1H, Platelet Count 312 , Neutrophils (%) (Auto) 69.4H, Lymphocytes (%) (Auto) 19.7L, Monocytes (%) ( Auto) 6.7H, Eosinophils (%) (Auto) 1.0, Basophils (%) (Auto) 0.8, Neutrophils # (Auto) 4.2, Lymphocytes # (Auto) 1.2L, Monocytes # (Auto) 0.4, Eosinophils # ( Auto) 0.1, Basophils # (Auto) 0.0, Glomerular Filtration Rate 51.8, Large Unclassified Cells # 0.2, Large Unclassified Cells % 2.4, Prothromb Time International Ratio 0.93, Prothrombin Time 12.6 CBC/BMP Laboratory Tests 11/30/16 04:50 Calcium Level 8.2 L, Aspartate Amino Transf (AST/SGOT) 14 L, Alanine Aminotransferase (ALT/SGPT) 9 L, Total Creatine Kinase 219 H, Alkaline Phosphatase 78, Total Bilirubin 0.4, Total Protein 6.3 L, Albumin 3.0 L, Red Blood Count 4.45, Mean Corpuscular Volume 75.5 L, Mean Corpuscular Hemoglobin 22.3 L, Mean Corpuscular Hemoglobin Concent 29.5 L, Red Cell Distribution Width 18.1 H, Neutrophils (%) (Auto) 69.4 H, Lymphocytes (%) (Auto) 19.7 L, Monocytes (%) (Auto) 6.7 H, Eosinophils (%) (Auto) 1.0, Basophils (%) (Auto) 0.8, Neutrophils # (Auto) 4.2, Lymphocytes # (Auto) 1.2 L, Monocytes # (Auto) 0.4, Eosinophils # (Auto) 0.1, Basophils # (Auto) 0.0 Microbiology Microbiology 11/29/16 MRSA Screen - Final, Complete Adi Tirado RPA-Yonny Nov 30, 2016 08:11 TRISTIAN ARTEAGA MD Nov 30, 2016 16:06
--- NOTE | 2016-11-30 08:30 | REP ---
Portable chest, single AP view, patient sitting: Comparison is the PA and lateral chest dated 10/29/2008. Lung pisano are clear. Cardiac size appears enlargement is magnified by portable positioning. The blake, mediastinum, bony thorax are unremarkable. The patient is rotated. Impression: No acute cardiopulmonary findings. Cardiac size appears enlarged but is magnified by positioning. Signed by Manuel Hagen MD 11/28/2016 11:14 A
--- NOTE | 2016-11-30 08:30 | REP ---
CT of the brain without IV contrast: There are no comparisons. There is no hemorrhage. There is no focal edema, mass effect or midline shift. The cortical stripe is unremarkable. The ventricles and sulci are enlarged compatible with diffuse volume loss. There is heterogeneity in the subcortical/periventricular white matter compatible with chronic microvascular ischemia. Impression: There is no hemorrhage, acute infarct or mass. There is evidence for diffuse volume loss. There is heterogeneity in the subcortical/periventricular white matter compatible with chronic microvascular ischemia. Signed by Manuel Hagen MD 11/28/2016 11:19 A
--- NOTE | 2016-11-30 08:31 | HPE ---
DATE OF ADMISSION: 11/28/2016 PRIMARY CARE PROVIDER: Dr. Jesus De Leon HISTORY: This is an 86-year-old female patient of Dr. De Leon who is tended to by her qhzfrppy-mt-aln, Tatiana Samuel, who presents to [facility] Emergency Room this morning after suffering right upper and lower extremity weakness that first originated on Wednesday. She has had some waxing and waning of these symptoms. She has had a couple of falls which seem to be more of her lowering herself to the fall that her notmuhvx-ft-ret Tatiana believes is secondary to the weakness. She has had some difficulty with ambulation, difficulty with motor control of the right upper extremity as well. Tatiana has been trying to get the patient to present to the emergency room, although she has been unwilling to until this morning. Upon arrival, she has been found to be medically stable, although demonstrating right upper and lower extremity weakness. She has had a CT scan of the head which is without any acute abnormalities. She did have a complete blood count (CBC) which shows chronic anemia, a basic metabolic panel (BMP) with mild hypokalemia and stable chronic kidney disease. INR was done and was 0.89. The emergency room physician has recommended admission for further monitoring. I have spoken with Dr. Saleem, whose only recommendation was if admitting team would like his input for a consultation to be placed. PAST MEDICAL HISTORY: Includes: 1. Hypertension. 2. Depression. 3. Dementia. 4. Hypercholesterolemia. 5. Degenerative joint disease. 6. Hypothyroidism. 7. Esophageal reflux. 8. Statin intolerance causing bilateral leg pain. 9. Hiatal hernia. SURGICAL HISTORY: Includes: 1. Cholecystectomy. 2. Left cataract removal. 3. Colonoscopy. 4. Upper endoscopy in December 2013. FAMILY HISTORY: Noncontributory. SOCIAL HISTORY: The patient has been a former smoker, it has been many years since she has smoked. She is a . She has DO NOT RESUSCITATE and Medical Orders for Life-Sustaining Treatment (MOLST) form completed. She follows a regular diet. She has limited activity, stays in her apartment most days. She has two DO NOT RESUSCITATE forms, one completed in August 2014 that does appear to be signed by the patient identifying Tatiana and Akshat Jimmie as her healthcare agents. She has another one completed in 2014 which identifies Haley Colon and Aleida Richardson as her primary and secondary healthcare agents, although on this one the signature does not appear to be the patient herself. She has been treated, looking at records, for many years for dementia, I am not sure this healthcare proxy from 2014 is, in fact, valid. ALLERGIES: Listed as STATINS which cause leg pain. REVIEW OF SYSTEMS: Patient denies any headache, denies any significant changes in her vision or hearing, any mouth sores or lesions. She does recognize that she, in fact, has been unsteady on her feet over the last couple of days. She denies any chest pain, feeling as though her heart is racing, skipping beats, shortness of breath, cough, hemoptysis, nausea, vomiting, diarrhea, melena, hematochezia, dysuria, hematuria, polyuria, polydipsia, or polyphagia. She and her kfvbszig-[id number]-nti, Tatiana, confirm that she has not had any lower extremity swelling. VITAL SIGNS: Include a pulse of 92, blood pressure 168/106, temperature is 97.7 , respirations 18, pulse oximetry 97% on room air. Weight is 83 kg. GENERAL: This is an elderly female who appears her stated age. She is pleasant and cooperative. She is alert. She is oriented to person and currently place. She is not aware of the year or who the president is. She is not sure of her year of . She has limited insight in terms of her current medical condition and reason for being in the emergency room at this time as well. HEENT: Head is normocephalic, atraumatic. Pupils are equal, round, reactive to light and accommodation. Extraocular movements are intact. Oropharynx is pink and moist. NECK: Supple without lymphadenopathy. CARDIOVASCULAR: Regular rate and rhythm. LUNGS: Diminished although clear to auscultation bilaterally. ABDOMEN: Obese, soft, nontender. She has positive bowel sounds. EXTREMITIES: Without edema. She has a relatively new round bruise on her right knee. She has, on her right anterior leg and on her left anterior knee, bruising that appears to be several days old as this is yellow in color. Right upper extremity she does have some noticeable weakness. She is unable to elevate that arm and keep it raised. She does have some difficulty with pludbn-ed-fbyg on that right side as well. She has difficulty raising her right leg off from the bed, although she is able to raise the left leg normally. She does have decent site director strength in that right upper extremity of 4/5, left upper extremity is 5/5. Dorsalis pedis and posterior tibialis pulses on bilateral lower extremities are equal, 2+. INVESTIGATIONS: CT of the brain and chest xray are without any acute disease. Labs have already been summarized above. EKG has sinus rhythm, left axis deviation, right bundle branch block. There is no EKG in [employer] ([facility]) for comparative purposes. ASSESSMENT AND PLAN: 1. Cerebral vascular accident. She will be admitted to the progressive care unit for further management and monitoring. Dr. Saleem will be consulted from neurology, Dr. Rodas intends on calling him. She is currently on aspirin 81 mg daily. Will continue the aspirin. Add Plavix 75 mg daily. Add high dose statin, will see how she tolerates this. Monitor her pressures, adjust antihypertensives accordingly. Echocardiogram has been ordered. MRI/MRA of the brain has also been ordered. She will be placed on telemetry in the progressive care unit. 2. Depression and dementia. Will continue her Aricept and Effexor during her hospitalization. 3. Hypothyroidism. Will continue her levothyroxine. 4. Disposition. She will have physical therapy ordered. The hope is that she will be able to return home, although she does live independently with family residing close by and very attentive to her. CHRISTIANO
--- NOTE | 2016-11-30 08:32 | CR ---
DATE OF CONSULTATION: 11/28/2016 CONSULTATION REPORT FOR: Dr. Sinan Rodas HISTORY: The patient is an 86-year-old female who is being admitted to the hospital secondary to complaints of right-sided body weakness. The patient herself has known history of dementia and she is unable to provide any history. This information is through her daughter. According to her daughter, the patient woke up at about 2:30 a.m. yesterday morning. She called her daughter and when she came to her house, she noticed that she was weak on the right side of her body. She stayed there for about two hours and by that time, her right arm and leg weakness had resolved. During that period of time, she did walk around with the help of a rolling walker. She put her to bed before she left her home and came back to see her mother at 7:30 a.m. yesterday. At that time, she was walking around without any symptoms. She gave her the morning medicine and then went to work. She returned back at about 2 p.m. and when her mother tried to itch her head, her right arm movements were uncoordinated. She also could not move her right leg well. Her symptoms persisted intermittently and at about 3:30 p.m. she sat on the floor and could not get up or walk. She was brought to the ER here at the [facility] and since then, she is still weak on the right side of her body. Currently she denies having any headache, dizzy spells, vertigo, diplopia, blurred vision, dysarthria and dysphagia. There is no complaint of any neck pain. She denies pain in her low back. The left side of her body is fairly strong. Her medications at home included atorvastatin, Plavix 75 mg daily, Aricept, levothyroxine, omeprazole and Effexor. Earlier she had a CT scan of the brain performed which did not show any acute changes. She had an MRI and MRA of the brain this evening but the results are still pending. PAST MEDICAL HISTORY: 1. Dementia. 2. Hypothyroidism. 3. Hypercholesterolemia. 4. Gastroesophageal reflux disease. 5. Depression. 6. Status post cholecystectomy. 7. Bilateral cataract extraction. FAMILY HISTORY: The patient's mother and father are both . Her mother and father both of old age. PERSONAL AND SOCIAL HISTORY: The patient lives by herself. There is no past medical history of smoking for at least 40 years. She did smoke prior to that. There is no history of any alcohol or drug abuse. REVIEW OF SYSTEMS: All other systems were reviewed and found to be noncontributory. PHYSICAL EXAMINATION: On examination, the patient does not appear in any discomfort. She is pleasant to interact with. Her posture is normal. Her blood pressure is 145/90. Pulse is 90 per minute. Respirations are 20 per minute. Her temperature is 98.4 degrees Fahrenheit. She is 5 feet 10 inches tall. She weighs about 83 kg. Her neck is supple. There is no carotid bruit audible. She does not have any tenderness in her cervical spine or shoulder muscles. Her ear, nose and throat examination is normal. Her lungs are clear to auscultation. Her heart is regular in rhythm. Her abdomen is soft and nondistended. There is no ankle edema seen. The peripheral pulses are normally palpable. She knows that she is at the [facility]. Her memory is however poor. She has difficulty with dates and the year. Extraocular movements are intact. There is no horizontal nystagmus seen. Her speech is within normal limits. Her pupils are about 3 mm in size and reactive to light. The consensual light reflex is present bilaterally. Visual pisano could not be tested well. She may have very mild right facial droop. Her motor examination does show weakness in her right upper and lower extremities where her strength is about 3/5. She is strong on the left side of her body. There are no resting or postural tremors of the hands seen. Her muscle tone is decreased on the right side of her body. The sensation to fine touch and pinprick could not be tested well. Deep tendon reflexes are 1+ on the left side and depressed on the right side of her body with equivocal plantar reflex on the right side. The [id number] testing could not be performed on the right side because of her weakness. There is no ataxia on the left side. Her gait is not tested. DIAGNOSTIC STUDIES: The patient's CT scan of the brain which was performed earlier in the ER did not show any acute changes. There results of her MRI and MRA of the brain are both pending at the present time. Her CBC shows a white cell count of 6200, hemoglobin 10.5, hematocrit 35.6 and platelets 297,000. Her ESR is 15. Her sodium is 143, potassium 3.3, BUN 22 and creatinine 1.33. Her calcium level is low at 8.7. Her CPK on admission was 215. Her ProTime is 12.1 seconds which is 0.89 INR. IMPRESSION: 1. Right-sided body weakness. 2. 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 3. 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 4. Likely vascular dementia. PLAN: 1. Await for the results of her MRI and MRA of the brain. 2. Carotid duplex study. 3. ESR, GINGER, rheumatoid factor and lupus anticoagulant. 4. Protein C and S. 5. Antithrombin III. 6. Aricept 10 mg by mouth daily. 7. Aspirin 81 mg by mouth daily. 8. Plavix 75 mg by mouth daily. 9. PT/OT evaluation and treatment. Thank you very much for this consultation.
[2016-11-30] MEDS: PANTOPRAZOLE 40MG TAB (PROTONIX) PO SCH (08:54)
[2016-11-30] MEDS: ASPIRIN 81 MG ENTERIC TAB PO SCH (08:54)
[2016-11-30] MEDS: DOCUSATE SODIUM 100 MG CAP PO SCH ×2 (08:54→20:53)
[2016-11-30] MEDS: DONEPEZIL 5 MG TAB PO SCH (08:54)
[2016-11-30] MEDS: VENLAFAXINE 37.5 MG TAB PO SCH (08:54)
[2016-11-30] MEDS: NS 1,000 ML IV SCH (10:15)
--- NOTE | 2016-11-30 11:26 | REP ---
Clinical: Acute left parietal lobe infarction. Technique: Johnson scale and color Doppler evaluation using linear high frequency transducer Findings: Two-dimensional johnson scale and color images demonstrate smooth age related intimal thickening and otherwise normal arterial lumen with laminar flow and no appreciable narrowing. Color Doppler interrogation demonstrates normal arterial wave patterns and velocities with no significant spectral broadening. Normal flow direction is appreciated in the left vertebral artery while the right vertebral artery was not visualized. RIGHT (cm/s) LEFT (cm/s) ICA peak systolic velocity 52.7 48.1 ICA diastolic velocity 9.3 14.3 ECA peak systolic velocity 58.9 49.6 CCA peak systolic velocity 70.7 89.8 ICA/CCA ratio 0.75 0.54 Impression: No hemodynamically significant areas of narrowing or stenosis appreciated. Based on set standards narrowing falls within the normal range. Signed by Teo Cintron MD 11/30/2016 05:33 A
[2016-11-30 12:00] VITALS: BP 158/104
[2016-11-30 12:46] LABS: ALBUMIN 3.69 GM/DL (3.29-5.55); ALBUMIN % 55.9 % (55.8-66.1); GAMMA GLOBULIN % 14.1 % (11.1-18.8)
[2016-11-30 16:00] VITALS: BP 158/106
[2016-11-30] MEDS: WARFARIN SOD 5 MG TAB PO SCH (16:25)
[2016-11-30] MEDS ORDERED: POTASSIUM CHLORIDE 10 MEQ SR TABLET PO ONE (17:00)
[2016-11-30 19:55] VITALS: BP 159/99
[2016-11-30] MEDS: ATORVASTATIN 20 MG TAB PO SCH (20:53)
[2016-11-30] MEDS: ACETAMINOPHEN TAB 650MG DOSE (2X325MG) PO PRN (20:53)
[2016-11-30 23:18] VITALS: BP 198/108
[2016-12-01] MEDS ORDERED: amLODIPine 5 MG TAB PO ONE (01:15)
[2016-12-01 04:00] VITALS: BP 178/108
[2016-12-01] MEDS: LEVOTHYROXINE 0.075 MG TAB (75 MCG) PO SCH (05:39)
[2016-12-01 06:00] VITALS: BP 174/108
[2016-12-01 06:42] VITALS: BP 146/92
--- NOTE | 2016-12-01 06:46 | EDDOCDS ---
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 ead reports pt can move right leg, but does not want to bare weight on right side. has not had BP meds today. blood glucose of 127. 20 gauge IV to left AC per EMS. Family reported pt has hx of dementia, reports pt is her normal mentation. The last date and time the patient was known to be well was was at 02:30 on November 27, 2016. An acute neurological deficit is present. The charge nurse has been notified. The patient has been moved to a treatment area. The patients blood glucose was checked before arriving to the hospital and was found to be normal. Adult Sepsis Screening: The patient does not have new or worsening altered mentation. Patient's respiratory rate is less than 22. Systolic blood pressure is greater than 100. Patient has a qSOFA score of 0- Negative Sepsis Screen. Suicide/Homicide risk assessment- the patient denies having any suicidal and/or homicidal ideations and does not present with any other emotional, behavioral or mental health complaints. Status: Patient is not a auto service mechanic or dependent. Transition of care: patient was not received from another setting of care. 10:47 Acuity: VLADIMIR Level 3 ead 10:47 Method Of Arrival: Ambulance ead Triage Assessment: 10:47 The onset of the patients symptoms was more than three hours ago. General: Appears in ead no apparent distress, comfortable, well nourished, well groomed, Behavior is appropriate for age, cooperative, pleasant. Pain: Denies pain. The patient is triaged at the bedside. See Assessment in Nurses Notes section of ED record. Neurological: Level of Consciousness is awake, alert, obeys commands, Oriented to person, place, Team Cdl Driver are equal bilaterally Weakness in right arm(s) leg(s) Speech is normal, Facial symmetry appears normal, Facial symmetry: tongue is midline, Pupils are PERRLA, equal sensation. Reports no additional symptoms. Cardiovascular: Chest pain is denied. Respiratory: Airway is patent Respiratory effort is even, unlabored. Derm: Skin is pink, warm & dry. Historical: - Allergies: no known allergies; - Home Meds: 1. Effexor 75 mg Oral tab 2 tab once daily 2. levothyroxine 75 mcg Oral cap once daily 3. Prilosec 40 mg Oral cpDR once daily 4. aspirin 81 mg Oral TbEC once daily - PMHx: Hypothyroidism; Hypertension; Dementia; - PSHx: left ankle; Cholecystectomy; cataract surgery; - Family history: Not pertinent. - Social history: Smoking status: Patient states former smoker of tobacco. No barriers to communication noted, The patient speaks fluent [place]er, Speaks appropriately for age. - : The pt / caregiver states he / she is not on anticoagulants. Home medication list is obtained from family members, [employer] import data. - Exposure Risk Screening:: None identified. Screenin:03 Screening information is obtained from family members. Fall risk: At risk due to right ead sided weakness. Assistance ADL's: Requires assistance with meal preparation, this assistance is provided by family members, Meals on Wheels, bathing, assistance is provided by family members, housework, assistance is provided by family members, medication administration, assistance is provided by family members. Nutritional screening: No deficits noted. Advance Directives: Currently, there is a health care proxy, Tatiana Samuel (daughter in law) Akshat Samuel (son). There is an active DNR order and the pt has a copy here at this time. There is no living will. There is no Power of Drafter Electrical. information regarding advance directives can be obtained from Tatiana [phone]. home support is adequate. 17:50 Abuse/DV Screen: The patient / caregiver reports he/she is: not in a situation that ead causes fear, pain or injury. Assessment: 11:52 Neurological: Level of Consciousness is awake, alert, obeys commands, Oriented to ead person, place, Team Cdl Driver are equal bilaterally Weakness in right arm(s) leg(s) Speech is normal, Facial symmetry appears normal. Respiratory: Airway is patent Respiratory effort is even, unlabored. Derm: Skin is pink, warm & dry. 12:15 Neurological: Level of Consciousness is awake, alert, obeys commands, Oriented to ead person, place, Team Cdl Driver are equal bilaterally Weakness in right arm(s) leg(s) Speech is normal, Facial symmetry appears normal. 12:30 Neurological: Level of Consciousness is awake, alert, obeys commands, Oriented to ead person, place, Team Cdl Driver are equal bilaterally Weakness in right arm(s) leg(s). 13:00 General: Appears in no apparent distress, comfortable, Behavior is appropriate for age, ead cooperative. Pain: Denies pain. Neurological: Level of Consciousness is awake, alert, obeys commands, Oriented to person, place, Team Cdl Driver are equal bilaterally Weakness in right arm(s) leg(s) Speech is normal, Facial symmetry appears normal. Respiratory: Airway is patent Respiratory effort is even, unlabored. Derm: Skin is pink, warm & dry. 13:15 Neurological: Level of Consciousness is awake, alert, obeys commands, Oriented to ead person, place, Team Cdl Driver are equal bilaterally Weakness in right arm(s) leg(s) Speech is normal, Facial symmetry appears normal. 13:30 Neurological: Level of Consciousness is awake, alert, obeys commands, Oriented to ead person, place, Team Cdl Driver are equal bilaterally Weakness in right arm(s) leg(s) Speech is normal, Facial symmetry appears normal. 14:35 General: Appears in no apparent distress, comfortable, Behavior is. General: ead Hospitalist DOMESTIC TECHNICIAN at bedside to examine pt. . Neurological: Level of Consciousness is awake, alert, obeys commands, Oriented to person, place. Respiratory: Airway is patent Respiratory effort is even, unlabored. Derm: Skin is pink, warm & dry. 14:50 General: Appears in no apparent distress, comfortable, Behavior is appropriate for age, ead cooperative. Neurological: Level of Consciousness is awake, alert, obeys commands, Oriented to person, place, Team Cdl Driver are equal bilaterally Weakness in right arm(s) leg(s) Speech is normal, Facial symmetry appears normal. 15:15 Neurological: Level of Consciousness is awake, alert, obeys commands, Oriented to ead person, place, Team Cdl Driver are equal bilaterally Weakness in right arm(s) leg(s) Speech is normal, Facial symmetry appears normal. 16:06 Adult Sepsis Screening: The patient does not have new or worsening altered mentation. ead Patient's respiratory rate is less than 22. Systolic blood pressure is greater than 100. Patient has a qSOFA score of 0- Negative Sepsis Screen. 17:05 General: pt to MRI via stretcher per ED MARKETING PROPOSAL COORDINATOR. . ead Vital Signs: 10:47 BP 159 / 89; Pulse 92; Resp 18; Temp 97.7(O); Pulse Ox 97% on R/A; Weight 83.46 kg (R); ead Height 5 ft. 10 in. (177.80 cm) (R); Pain 0/10; 11:28 Pulse 92 MON; Pulse Ox 96% ; ead 11:28 BP 156 / 97 (auto/); ead 11:43 BP 148 / 93 (auto/); ead 11:43 Pulse 92 MON; Pulse Ox 96% ; ead 11:58 BP 162 / 99 (auto/); ead 11:58 Pulse 92 MON; Pulse Ox 95% ; ead 12:13 BP 154 / 86 (auto/); ead 12:13 Pulse 90 MON; Pulse Ox 96% ; ead 12:28 BP 161 / 99 (auto/); ead 12:28 Pulse 92 MON; Pulse Ox 96% ; ead 13:20 BP 169 / 103 (auto/); ead 13:20 Pulse 92 MON; Pulse Ox 96% ; ead 13:28 BP 166 / 102 (auto/); ead 13:28 Pulse 92 MON; Pulse Ox 95% ; ead 13:43 BP 168 / 106 (auto/); ead 13:43 Pulse 88 MON; Pulse Ox 96% ; ead 13:58 BP 187 / 91 (auto/); ead 13:58 Pulse 90 MON; Pulse Ox 96% ; ead 14:18 Pulse 88 MON; Pulse Ox 95% ; ead 14:18 BP 182 / 88 (auto/); ead 14:28 BP 180 / 91 (auto/); ead 14:28 Pulse 96 MON; Resp 18; Pulse Ox 96% on R/A; ead 14:43 BP 166 / 94 (auto/); ead 14:43 Pulse 90 MON; Pulse Ox 95% ; ead 14:58 BP 164 / 91 (auto/); ead 14:58 Pulse 94 MON; Pulse Ox 95% ; ead 15:13 BP 135 / 75 (auto/); ead 15:21 Pulse 88 MON; Pulse Ox 95% ; ead 15:28 BP 148 / 77 (auto/); ead 15:29 Pulse 90 MON; Pulse Ox 95% ; ead 15:43 BP 144 / 88 (auto/); ead 15:44 Pulse 92 MON; Pulse Ox 94% ; ead 15:58 BP 137 / 86 (auto/); ead 16:00 Pulse 88 MON; Pulse Ox 94% ; ead 10:47 Body Mass Index 26.40 (83.46 kg, 177.80 cm) ead Vitals: 10:41 Glucose Measurement D-stick done by EMS. Log In Time N/A - ambulance arrival. ead ED Course: 10:42 Patient visited by Renee Anaya, Development Mechanic. deg 10:42 Patient moved to Waiting deg 10:43 Nella Cancino RN is Primary Nurse. deg 10:43 Maya Brice MD is Attending Physician. fg 10:43 Patient visited by Maya Brice MD. fg 10:43 Patient moved to 10 deg 10:53 Triage Initiated ead 11:05 EKG done. (by ED staff). Reviewed by Maya Brice MD. rn1 11:07 Patient visited by Nella Cancino RN. ead 11:36 Patient visited by Nella Cancino,JOSEFINA. ead 11:37 The patient / caregiver is instructed regarding the plan of care and ED course. Patient ead has correct armband on for positive identification. Placed in gown. Bed in low position. Call light in reach. Side rails up X 1. Adult w/ patient. youth nutritional monitor on. Pulse ox on. NIBP on. 11:37 Basic Metabolic Profile Sent. ead 11:37 CBC with Diff Sent. ead 11:37 Partial Thromboplastin Time Sent. ead 11:37 Prothrombin Time Profile\E\INR Sent. ead 11:37 Maintain field IV. Dressing intact. Good blood return noted. Site clean & dry. Gauge & ead site: 20 LEFT AC PER EMS. 11:38 Type & Screen Sent. ead 11:41 [facility] [place] Payment Agreement was scanned into [employer] and attached to record. lg 12:34 Patient visited by Nella Cancino,JOSEFINA. ead 13:17 Sinan Rodas MD is Hospitalizing Provider. fg 17:13 Patient moved to [facility] nb2 17:43 T-Sheet-- Draft Copy was scanned into [employer] and attached to record. klr 18:04 Patient moved to 21 dls 18:42 Patient visited by Kelly Pichardo. nb2 18:42 Assisted with bedpan. nb2 19:15 Patient moved to Admit Hold sls1 11/29 02:54 Primary Nurse role handed off by Nella Cancino RN jmb 19:39 Trend VS was scanned into [employer] and attached to record. kf3 Administered Medications: 11/28 13:35 Drug: Aspirin 324 mg [aspirin 81 mg chewable tablet (4 tabs)] {Note: 3 tabs 81 mg ead given. daughter states pt had 1 tab 81mg at home this morning.} Route: PO; Attachments: 11/29 19:39 Trend VS kf3 Order Results: Lab Order: Basic Metabolic Profile; SPEC'M 11/28/16 11:34 Test: GLUCOSE, FASTING; Value: 129; Range: 83-110; Abnormal: Above high normal; Units: MG/DL; Status: F Test: BLOOD UREA NITROGEN; Value: 22; Range: 7-18; Abnormal: Above high normal; Units: MG/DL; Status: F Test: CREATININE FOR GFR; Value: 1.33; Range: 0.55-1.02; Abnormal: Above high normal; Units: MG/DL; Status: F Test: GLOMERULAR FILTRATION RATE; Value: 40.3; Range: >32; Status: F Test: SODIUM LEVEL; Value: 143; Range: 136-145; Units: MEQ/L; Status: F Test: POTASSIUM SERUM; Value: 3.3; Range: 3.5-5.1; Abnormal: Below low normal; Units: MEQ/L; Status: F Test: CHLORIDE LEVEL; Value: 107; Range: 98-107; Units: MEQ/L; Status: F Test: CARBON DIOXIDE LEVEL; Value: 28; Range: 21-32; Units: MEQ/L; Status: F Test: ANION GAP; Value: 8; Range: 8-16; Units: MEQ/L; Status: F Test: CALCIUM LEVEL; Value: 8.7; Range: 8.8-10.2; Abnormal: Below low normal; Units: MG/DL; Status: F Test Note: ; Units are mL/min/1.73 m2 Chronic Kidney Disease Staging per NKF: Stage I & II GFR >=60 Normal to Mildly Decreased Stage III GFR 30-59 Moderately Decreased Stage IV GFR 15-29 Severely Decreased Stage V GFR <15 Very Little GFR Left ESRD GFR <15 on GLAZIER HELPER Lab Order: CBC with Diff; SPEC'M 11/28/16 11:34 Test: WHITE BLOOD COUNT; Value: 6.2; Range: 4.0-10.0; Units: K/mm3; Status: F Test: RED BLOOD COUNT; Value: 4.80; Range: 4.00-5.40; Units: M/mm3; Status: F Test: HEMOGLOBIN; Value: 10.5; Range: 12.0-16.0; Abnormal: Below low normal; Units: g/dl; Status: F Test: HEMATOCRIT; Value: 35.6; Range: 36.0-47.0; Abnormal: Below low normal; Units: %; Status: F Test: MEAN CORPUSCULAR VOLUME; Value: 74.1; Range: 80.0-96.0; Abnormal: Below low normal; Units: fl; Status: F Test: MEAN CORPUSCULAR HEMOGLOBIN; Value: 21.9; Range: 27.0-33.0; Abnormal: Below low normal; Units: pg; Status: F Test: MEAN CORPUSCULAR HGB CONC; Value: 29.6; Range: 32.0-36.5; Abnormal: Below low normal; Units: g/dl; Status: F Test: RED CELL DISTRIBUTION WIDTH; Value: 19.4; Range: 11.5-14.5; Abnormal: Above high normal; Units: %; Status: F Test: PLATELET COUNT, AUTOMATED; Value: 297; Range: 150-450; Units: k/mm3; Status: F Test: NEUTROPHILS %; Value: 74.9; Range: 36.0-66.0; Abnormal: Above high normal; Units: %; Status: F Test: LYMPH %; Value: 14.9; Range: 24.0-44.0; Abnormal: Below low normal; Units: %; Status: F Test: MONO %; Value: 7.1; Range: 0.0-5.0; Abnormal: Above high normal; Units: %; Status: F Test: EOS %; Value: 0.4; Range: 0.0-3.0; Units: %; Status: F Test: BASO %; Value: 1.5; Range: 0.0-1.0; Abnormal: Above high normal; Units: %; Status: F Test: LARGE UNSTAINED CELL %; Value: 1.3; Range: 0.0-4.0; Units: %; Status: F Test: NEUTROPHILS #; Value: 4.7; Range: 1.8-7.7; Units: K/mm3; Status: F Test: LYMPH #; Value: 1.0; Range: 1.5-4.5; Abnormal: Below low normal; Units: K/mm3; Status: F Test: MONO #; Value: 0.4; Range: 0.0-0.8; Units: K/mm3; Status: F Test: EOS #; Value: 0.0; Range: 0.0-0.50; Units: K/mm3; Status: F Test: BASO #; Value: 0.1; Range: 0.0-0.2; Units: K/mm3; Status: F Test: LARGE UNSTAINED CELL #; Value: 0.1; Range: 0.0-0.4; Units: K/mm3; Status: F Lab Order: Partial Thromboplastin Time; SPEC'M 11/28/16 11:34 Test: PARTIAL THROMBOPLASTIN TIME; Value: 25.9; Range: 26.6-37.1; Abnormal: Below low normal; Units: SECONDS; Status: F Lab Order: Prothrombin Time Profile\E\INR; SPEC' 11/28/16 11:34 Test: PROTHROMBIN TIME; Value: 12.1; Range: 12.3-14.5; Abnormal: Below low normal; Units: SECONDS; Status: F Test: INR; Value: 0.89; Status: F Test Note: ; THERAPUTIC HUMAN INR VALUES INDICATIONS NORMAL RANGES PROPHYLAXIS/TREATMENT OF: VENOUS THROMBOSIS 2.0-3.0 PULMONARY EMBOLISM 2.0-3.0 PREVENTION OF SYSTEMIC EMBOLISM FROM: TISSUE HEART VALVES 2.0-3.0 ACUTE MYOCARDIAL INFARCTION 2.0-3.0 VALVULAR HEART DISEASE 2.0-3.0 ATRIAL FIBRILLATION 2.0-3.0 MECHANICAL VALVES(HIGH RISK) 2.5-3.5 RECURRENT MYOCARDIAL INFARCTION 2.5-3.5 Lab Order: Type & Screen; SPEC'M 11/28/16 11:34 Test: BLOOD TYPE; Value: O POS; Status: F Test: AB SCREEN (INDIRECT VÍCTOR)GEL; Value: NEGATIVE; Status: F Lab Order: RBC MORPH PROF NO CHARGE; [facility] 11/28/16 11:34 Test: PLATELET ESTIMATE; Range: NORMAL; Status: I Test: HYPOCHROMASIA; Value: 2+; Status: F Test: POIKILOCYTOSIS; Value: 1+; Status: F Test: ANISOCYTOSIS; Value: 2+; Status: F Test: MICROCYTOSIS; Value: 2+; Status: F Test: PLATELET ESTIMATE; Value: NORMAL; Range: NORMAL; Status: F Lab Order: CARDIAC MARKER PANEL; [facility] 11/28/16 16:05 Test: CPK CREATINE PHOSPHOKINASE; Value: 215; Range: 26-192; Abnormal: Above high normal; Units: U/L; Status: F Test: CK-MB VALUE MASS; Value: 2.0; Range: 0.0-3.6; Units: NG/ML; Status: F Test: MB/CK RELATIVE INDEX; Value: 0.93; Range: < OR =4; Status: F Test: TROPONIN I; Value: 0.03; Range: < 0.10; Units: NG/ML; Status: F Test Note: ; DIAGNOSIS CRITERIA MMB ng/ml Relative Index (RI) NON-AMI < or = 5 N/A MADRID ZONE > 5 < or = 4 AMI > 5 > 4 Lab Order: CARDIAC MARKER PANEL; [facility] 11/28/16 22:30 Test: CPK CREATINE PHOSPHOKINASE; Value: 271; Range: 26-192; Abnormal: Above high normal; Units: U/L; Status: F Test: CK-MB VALUE MASS; Value: 2.1; Range: 0.0-3.6; Units: NG/ML; Status: F Test: MB/CK RELATIVE INDEX; Value: 0.77; Range: < OR =4; Status: F Test: TROPONIN I; Value: 0.02; Range: < 0.10; Abnormal: Delta; Units: NG/ML; Status: F Test Note: ; DIAGNOSIS CRITERIA MMB ng/ml Relative Index (RI) NON-AMI < or = 5 N/A MADRID ZONE > 5 < or = 4 AMI > 5 > 4 Lab Order: ERYTHROCYTE SEDIMENTATION RATE; SPEC'M 11/28/16 11:34 Test: ERYTHROCYTE SEDIMENTATION RATE; Value: 15; Range: 0-42; Units: mm/hr; Status: F Lab Order: SERUM PROTEIN ELECTROPHORESIS; SPEC'M 11/28/16 22:30 Test: ALBUMIN %; Range: 55.8-66.1; Units: %; Status: I Test: HCBYY-0-PVRKSCXW %; Range: 2.9-4.9; Units: %; Status: I Test: VQXSY-9-FHSOQCPCS %; Range: 7.1-11.8; Units: %; Status: I Test: XKLG-7-TLEQDPAWE %; Range: 4.7-7.2; Units: %; Status: I Test: RGCQ-9-QANZMRQIT %; Range: 3.2-6.5; Units: %; Status: I Test: GAMMA GLOBULIN %; Range: 11.1-18.8; Units: %; Status: I Test: ALBUMIN; Range: 3.29-5.55; Units: GM/DL; Status: I Test: VYQHT-5-OOEYGFPBQ; Range: 0.17-0.41; Units: GM/DL; Status: I Test: ZYIPN-7-KTRQTWXKW; Range: 0.42-0.99; Units: GM/DL; Status: I Test: ZHOI-7-TRDZFDXIU; Range: 0.28-0.60; Units: GM/DL; Status: I Test: IAAE-7-OTMTJICFT; Range: 0.19-0.55; Units: GM/DL; Status: I Test: GAMMA GLOBULINS; Range: 0.65-1.58; Units: GM/DL; Status: I Test: TOTAL PROTEIN; Value: 6.6; Range: 6.4-8.2; Units: GM/DL; Status: F Test: SPEP INTERPRETATION; Status: I Outcome: 11/28 13:17 Decision to Hospitalize by Provider. fg 17:50 CT Study completed. MRI Study completed. ead 17:50 Discharge Assessment: patient administered narcotics - no. ead 11/29 05:45 Patient left the ED. sls1 Signatures: Renee Anaya, Development Mechanic Unit deg Marti Trujillo RN RN Malissa Collazoe, Reg Reg lg Fidmelina, Surya, Reg Reg kf3 Roseline Vargas, RN RN sls1 Chris SaraviaRN Nella Delgadillo RN RN ead Newman, Robert rn1 Maya Brice MD MD fg Redder, Kathie klr Baart, Nicole nb2 Corrections: (The following items were deleted from the chart) 11/28 11:03 10:47 BP 159 / 89; Pulse 92bpm; Resp 18bpm; Pulse Ox 97% RA; Temp 97.7F Oral; Pain ead 0/10; ead 11: 10:56 Social history Smoking status: Patient states was never smoker of tobacco. No ead barriers to communication noted, The patient speaks fluent [place], Speaks appropriately for age, ead 11:03 Advance Directives: Currently, there is no health care proxy. There is an active ead DNR order and the pt has a copy here at this time. There is no living will. There is no Power of Drafter Electrical. ead 10:47 Presenting complaint: EMS states: right arm weakness since 0230 yesterday ead morning. reports pt can move right leg, but does not want to bare weight on right side. has not had BP meds today. blood glucose od 127. 20 gauge IV to left AC per EMS. Family reported pt has hx of dementia, reports pt is her normal mentation. ead Chart Complete MTDD
--- NOTE | 2016-12-01 06:46 | EDDOCDS ---
Physician Documentation [facility] Name: Rachael Samuel Age: 86 yrs Sex: Female : 1930 Arrival Date: 11/28/2016 Time: 10:41 Bed Admit Hold Private MD: Disposition: 11/28/16 13:17 Hospitalization ordered by Sinan Rodas for Inpatient Admission. 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 - Bed requested for M ICU. - Status is Inpatient Admission. sls1 - Condition is Stable. - Problem is new. - Symptoms are unchanged. Historical: - Allergies: no known allergies; - Home Meds: 1. Effexor 75 mg Oral tab 2 tab once daily 2. levothyroxine 75 mcg Oral cap once daily 3. Prilosec 40 mg Oral cpDR once daily 4. aspirin 81 mg Oral TbEC once daily - PMHx: Hypothyroidism; Hypertension; Dementia; - PSHx: left ankle; Cholecystectomy; cataract surgery; - Family history: Not pertinent. - Social history: Smoking status: Patient states former smoker of tobacco. No barriers to communication noted, The patient speaks fluent Ivorian, Speaks appropriately for age. - : The pt / caregiver states he / she is not on anticoagulants. Home medication list is obtained from family members, [employer] import data. - Exposure Risk Screening:: None identified. Vital Signs: 11/28 10:47 BP 159 / 89; Pulse 92; Resp 18; Temp 97.7(O); Pulse Ox 97% on R/A; Weight 83.46 kg / ead 184 lbs (R); Height 5 ft. 10 in. (177.80 cm) (R); Pain 0/10; 11:28 Pulse 92 MON; Pulse Ox 96% ; ead 11:28 BP 156 / 97 (auto/); ead 11:43 BP 148 / 93 (auto/); ead 11:43 Pulse 92 MON; Pulse Ox 96% ; ead 11:58 BP 162 / 99 (auto/); ead 11:58 Pulse 92 MON; Pulse Ox 95% ; ead 12:13 BP 154 / 86 (auto/); ead 12:13 Pulse 90 MON; Pulse Ox 96% ; ead 12:28 BP 161 / 99 (auto/); ead 12:28 Pulse 92 MON; Pulse Ox 96% ; ead 13:20 BP 169 / 103 (auto/); ead 13:20 Pulse 92 MON; Pulse Ox 96% ; ead 13:28 BP 166 / 102 (auto/); ead 13:28 Pulse 92 MON; Pulse Ox 95% ; ead 13:43 BP 168 / 106 (auto/); ead 13:43 Pulse 88 MON; Pulse Ox 96% ; ead 13:58 BP 187 / 91 (auto/); ead 13:58 Pulse 90 MON; Pulse Ox 96% ; ead 14:18 Pulse 88 MON; Pulse Ox 95% ; ead 14:18 BP 182 / 88 (auto/); ead 14:28 BP 180 / 91 (auto/); ead 14:28 Pulse 96 MON; Resp 18; Pulse Ox 96% on R/A; ead 14:43 BP 166 / 94 (auto/); ead 14:43 Pulse 90 MON; Pulse Ox 95% ; ead 14:58 BP 164 / 91 (auto/); ead 14:58 Pulse 94 MON; Pulse Ox 95% ; ead 15:13 BP 135 / 75 (auto/); ead 15:21 Pulse 88 MON; Pulse Ox 95% ; ead 15:28 BP 148 / 77 (auto/); ead 15:29 Pulse 90 MON; Pulse Ox 95% ; ead 15:43 BP 144 / 88 (auto/); ead 15:44 Pulse 92 MON; Pulse Ox 94% ; ead 15:58 BP 137 / 86 (auto/); ead 16:00 Pulse 88 MON; Pulse Ox 94% ; ead 10:47 Body Mass Index 26.40 (83.46 kg, 177.80 cm) ead MDM: 10:54 RN interventions must not delay CT ordered. fg 10:54 Laboratory Mechanic Helper/Pulse Ox/q 15 min VS ordered. fg 10:54 Accucheck ordered. fg 10:54 IV Saline Lock ordered. fg 10:54 Neuro VS q 15 Minutes ordered. fg 10:54 Patient must be on CC stretcher and weighed via bed scale ordered. fg 10:54 Rhythm Strip to chart ordered. fg 10:54 Stroke assessment pack to bedside ordered. fg 10:55 Basic Metabolic Profile Ordered. EDMS 10:55 CBC with Diff Ordered. EDMS 10:55 Partial Thromboplastin Time Ordered. EDMS 10:55 Prothrombin Time Profile\E\INR Ordered. EDMS 10:55 Type & Screen Ordered. EDMS 10:55 CT Head Without Contrast Ordered. EDMS 10:55 Chest, 1 View Ordered. EDMS 10:56 ECG WITH READING ER PHYS+CARDIAG ordered. EDMS 11:01 Financial registration complete. mm15 11:39 BED REQUEST+ADM ordered. EDMS 11:41 [facility] [place] Agreement was scanned into [employer] and attached to record. lg 12:03 RBC MORPH PROF NO CHARGE Ordered. EDMS 13:18 Aspirin 324 mg PO once ordered. fg 15:04 Admission / Observation Status ordered. EDMS 15:04 ECHOCARD,DOPPLER/COLOR FLOW ordered. EDMS 15:04 REGULAR DIET ordered. EDMS 15:05 CARDIAC MARKER PANEL Ordered. EDMS 15:05 CARDIAC MARKER PANEL Ordered. EDMS 15:05 ANTINUCLEAR ANTIBODIES Ordered. EDMS 15:05 ANTI-SJOGRENS A & B ANTIBODIES Ordered. EDMS 15:05 ERYTHROCYTE SEDIMENTATION RATE Ordered. EDMS 15:06 MRI Brain without Contrast Ordered. EDMS 15:06 MRA BRAIN W/O CONTRAST Ordered. EDMS 15:56 ANTI-CARDIOLIPIN ANTIBODIES Ordered. EDMS 16:08 Lupus Type Anticoagulant Ordered. EDMS 16:08 FACTOR II PROTHROMBIN GENE AN Ordered. EDMS 17:43 T-Sheet-- Draft Copy was scanned into [employer] and attached to record. klr 19:32 CARDIAC MARKER PANEL Ordered. EDMS 19:32 CBC WITH DIFFERENTIAL Ordered. EDMS 20:47 URINALYSIS Ordered. EDMS 20:47 URINE CULTURE Ordered. EDMS 23:24 COMPLETE COMPHRENSIVE METABOLI Ordered. EDMS 11/29 05:31 MRSA SCREEN Ordered. EDMS 19:39 Trend VS was scanned into [employer] and attached to record. kf3 Administered Medications: 11/28 13:35 Drug: Aspirin 324 mg [aspirin 81 mg chewable tablet (4 tabs)] {Note: 3 tabs 81 mg ead given. daughter states pt had 1 tab 81mg at home this morning.} Route: PO; Signatures: Dispatcher [employer] EDMS Belia Holm RN RN daq Fifi Fuentes, Reg Reg lg Surya Ndiaye, Reg Reg kf3 Roseline Vargas RN RN sls1 Ed Gonzales mm15 Nella Cancino,RN RN eaIftikhar Irvin RN RN [facility] Maya Brice MD MD fg Redder, Kathie klr The chart was reviewed and I authenticate all verbal orders and agree with the evaluation and treatment provided.Corrections: (The following items were deleted from the chart) 11:03 10:56 Social history Smoking status: Patient states was never smoker of tobacco. No ead barriers to communication noted, The patient speaks fluent Ivorian, Speaks appropriately for age, ead 15:53 15:05 ANTI-CARDIOLIPIN ANTIBODIES ordered. EDMS EDMS 16:07 15:05 Lupus Type Anticoagulant ordered. EDMS EDMS 16:07 15:05 FACTOR II PROTHROMBIN GENE AN ordered. EDMS EDMS 22:23 22:16 ANTINUCLEAR ANTIBODIES ordered. EDMS EDMS 22:37 22:16 Lupus Type Anticoagulant ordered. EDMS EDMS 22:37 22:16 PROTEIN C ANTIGEN ordered. EDMS EDMS 22:38 22:16 PROTEIN S ANTIGEN(TOT&FREE) ordered. EDMS EDMS 22:38 22:16 SERUM PROTEIN ELECTROPHORESIS ordered. EDMS EDMS 22:38 22:16 ANTI THROMBIN 3 ANTIGEN LEVEL ordered. EDMS EDMS 23:24 19:32 COMPLETE COMPHRENSIVE METABOLI ordered. EDMS EDMS Attachments: 11:41 [facility] Payment Agreement lg 17:43 T-Sheet-- Draft Copy klr Chart Complete MTDD
--- NOTE | 2016-12-01 06:46 | EDDOCDS ---
Physician Documentation [facility] Name: Rachael Samuel Age: 86 yrs Sex: Female : 1930 Arrival Date: 11/28/2016 Time: 10:41 Bed Admit Hold Private MD: Disposition: 11/28/16 13:17 Hospitalization ordered by Sinan Rodas for Inpatient Admission. 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 - Bed requested for M ICU. - Status is Inpatient Admission. sls1 - Condition is Stable. - Problem is new. - Symptoms are unchanged. Historical: - Allergies: no known allergies; - Home Meds: 1. Effexor 75 mg Oral tab 2 tab once daily 2. levothyroxine 75 mcg Oral cap once daily 3. Prilosec 40 mg Oral cpDR once daily 4. aspirin 81 mg Oral TbEC once daily - PMHx: Hypothyroidism; Hypertension; Dementia; - PSHx: left ankle; Cholecystectomy; cataract surgery; - Family history: Not pertinent. - Social history: Smoking status: Patient states former smoker of tobacco. No barriers to communication noted, The patient speaks fluent Mexican, Speaks appropriately for age. - : The pt / caregiver states he / she is not on anticoagulants. Home medication list is obtained from family members, [employer] import data. - Exposure Risk Screening:: None identified. Vital Signs: 11/28 10:47 BP 159 / 89; Pulse 92; Resp 18; Temp 97.7(O); Pulse Ox 97% on R/A; Weight 83.46 kg / ead 184 lbs (R); Height 5 ft. 10 in. (177.80 cm) (R); Pain 0/10; 11:28 Pulse 92 MON; Pulse Ox 96% ; ead 11:28 BP 156 / 97 (auto/); ead 11:43 BP 148 / 93 (auto/); ead 11:43 Pulse 92 MON; Pulse Ox 96% ; ead 11:58 BP 162 / 99 (auto/); ead 11:58 Pulse 92 MON; Pulse Ox 95% ; ead 12:13 BP 154 / 86 (auto/); ead 12:13 Pulse 90 MON; Pulse Ox 96% ; ead 12:28 BP 161 / 99 (auto/); ead 12:28 Pulse 92 MON; Pulse Ox 96% ; ead 13:20 BP 169 / 103 (auto/); ead 13:20 Pulse 92 MON; Pulse Ox 96% ; ead 13:28 BP 166 / 102 (auto/); ead 13:28 Pulse 92 MON; Pulse Ox 95% ; ead 13:43 BP 168 / 106 (auto/); ead 13:43 Pulse 88 MON; Pulse Ox 96% ; ead 13:58 BP 187 / 91 (auto/); ead 13:58 Pulse 90 MON; Pulse Ox 96% ; ead 14:18 Pulse 88 MON; Pulse Ox 95% ; ead 14:18 BP 182 / 88 (auto/); ead 14:28 BP 180 / 91 (auto/); ead 14:28 Pulse 96 MON; Resp 18; Pulse Ox 96% on R/A; ead 14:43 BP 166 / 94 (auto/); ead 14:43 Pulse 90 MON; Pulse Ox 95% ; ead 14:58 BP 164 / 91 (auto/); ead 14:58 Pulse 94 MON; Pulse Ox 95% ; ead 15:13 BP 135 / 75 (auto/); ead 15:21 Pulse 88 MON; Pulse Ox 95% ; ead 15:28 BP 148 / 77 (auto/); ead 15:29 Pulse 90 MON; Pulse Ox 95% ; ead 15:43 BP 144 / 88 (auto/); ead 15:44 Pulse 92 MON; Pulse Ox 94% ; ead 15:58 BP 137 / 86 (auto/); ead 16:00 Pulse 88 MON; Pulse Ox 94% ; ead 10:47 Body Mass Index 26.40 (83.46 kg, 177.80 cm) ead MDM: 10:54 RN interventions must not delay CT ordered. fg 10:54 Tool Design Engineer/Pulse Ox/q 15 min VS ordered. fg 10:54 Accucheck ordered. fg 10:54 IV Saline Lock ordered. fg 10:54 Neuro VS q 15 Minutes ordered. fg 10:54 Patient must be on CC stretcher and weighed via bed scale ordered. fg 10:54 Rhythm Strip to chart ordered. fg 10:54 Stroke assessment pack to bedside ordered. fg 10:55 Basic Metabolic Profile Ordered. EDMS 10:55 CBC with Diff Ordered. EDMS 10:55 Partial Thromboplastin Time Ordered. EDMS 10:55 Prothrombin Time Profile\E\INR Ordered. EDMS 10:55 Type & Screen Ordered. EDMS 10:55 CT Head Without Contrast Ordered. EDMS 10:55 Chest, 1 View Ordered. EDMS 10:56 ECG WITH READING ER PHYS+CARDIAG ordered. EDMS 11:01 Financial registration complete. mm15 11:39 BED REQUEST+ADM ordered. EDMS 11:41 [facility] Payment Agreement was scanned into [employer] Document Preparation and attached to record. lg 12:03 RBC MORPH PROF NO CHARGE Ordered. EDMS 13:18 Aspirin 324 mg PO once ordered. fg 15:04 Admission / Observation Status ordered. EDMS 15:04 ECHOCARD,DOPPLER/COLOR FLOW ordered. EDMS 15:04 REGULAR DIET ordered. EDMS 15:05 CARDIAC MARKER PANEL Ordered. EDMS 15:05 CARDIAC MARKER PANEL Ordered. EDMS 15:05 ANTINUCLEAR ANTIBODIES Ordered. EDMS 15:05 ANTI-SJOGRENS A & B ANTIBODIES Ordered. EDMS 15:05 ERYTHROCYTE SEDIMENTATION RATE Ordered. EDMS 15:06 MRI Brain without Contrast Ordered. EDMS 15:06 MRA BRAIN W/O CONTRAST Ordered. EDMS 15:56 ANTI-CARDIOLIPIN ANTIBODIES Ordered. EDMS 16:08 Lupus Type Anticoagulant Ordered. EDMS 16:08 FACTOR II PROTHROMBIN GENE AN Ordered. EDMS 17:43 T-Sheet-- Draft Copy was scanned into [employer] Document Preparation and attached to record. klr 19:32 CARDIAC MARKER PANEL Ordered. EDMS 19:32 CBC WITH DIFFERENTIAL Ordered. EDMS 20:47 URINALYSIS Ordered. EDMS 20:47 URINE CULTURE Ordered. EDMS 23:24 COMPLETE COMPHRENSIVE METABOLI Ordered. EDMS 11/29 05:31 MRSA SCREEN Ordered. EDMS 19:39 Trend VS was scanned into [employer] Document Preparation and attached to record. kf3 Administered Medications: 11/28 13:35 Drug: Aspirin 324 mg [aspirin 81 mg chewable tablet (4 tabs)] {Note: 3 tabs 81 mg ead given. daughter states pt had 1 tab 81mg at home this morning.} Route: PO; Signatures: Dispatcher [employer] EDMS Belia Holm RN RN daq Fifi Fuentes, Reg Reg lg Surya Ndiaye, Reg Reg kf3 Roseline Vargas RN RN sls1 Ed Gonzales mm15 Nella Cancino,RN RN eaIftikhar Irvin RN RN [facility] Maya Brice MD MD fg Redder, Kathie klr The chart was reviewed and I authenticate all verbal orders and agree with the evaluation and treatment provided.Corrections: (The following items were deleted from the chart) 11:03 10:56 Social history Smoking status: Patient states was never smoker of tobacco. No ead barriers to communication noted, The patient speaks fluent Mexican, Speaks appropriately for age, ead 15:53 15:05 ANTI-CARDIOLIPIN ANTIBODIES ordered. EDMS EDMS 16:07 15:05 Lupus Type Anticoagulant ordered. EDMS EDMS 16:07 15:05 FACTOR II PROTHROMBIN GENE AN ordered. EDMS EDMS 22:23 22:16 ANTINUCLEAR ANTIBODIES ordered. EDMS EDMS 22:37 22:16 Lupus Type Anticoagulant ordered. EDMS EDMS 22:37 22:16 PROTEIN C ANTIGEN ordered. EDMS EDMS 22:38 22:16 PROTEIN S ANTIGEN(TOT&FREE) ordered. EDMS EDMS 22:38 22:16 SERUM PROTEIN ELECTROPHORESIS ordered. EDMS EDMS 22:38 22:16 ANTI THROMBIN 3 ANTIGEN LEVEL ordered. EDMS EDMS 23:24 19:32 COMPLETE COMPHRENSIVE METABOLI ordered. EDMS EDMS Attachments: 11:41 [facility] Payment Agreement lg 17:43 T-Sheet-- Draft Copy klr Chart Complete MTDD
[2016-12-01 06:53] LABS: INR 1.01
--- NOTE | 2016-12-01 07:58 | IPNPDOC ---
Assessment/Plan Date Seen The patient was seen on 12/01/16. Problems Problems: (1) CVA (cerebral vascular accident) Status: Acute Response to Treatment: Stable Discussed With: Patient, Family with Pt Consent Problem Specific Plan: Consult Specialist, Monitor Clinically Problem Text: 11/30 - Coumadin started yesterday. INR 0.93 this AM. On Aspirin 81 mg. 11/29: Change Plavix in favor of Coumadin per neurology's recommendation. 11/28: Dr Saleem consulted by Dr Rodas. She was on ASA 81 prior to admission, added Plavix 75 mg daily, HD statin (has h/o intolerability with leg pains - monitor), MRI/MRA done, report pending. ECHO ordered. PT/OT ordered. She previously resided at home alone, with close family support. 12/01 - Right UE and LE weakness persists - no new deficits MRI - showed small acute left parietal lobe infarction MRA and Carotid US unremarkable Echo pending Continue PT. Add OT. Get PMR evaluation Continue ASA/Coumadin (favored over Plavix - per Neurology) - INR = 1 (increase COumadin dose today) Continue Statin - monitor for leg pain due to h/o intolerance in past (2) Dementia Status: Chronic Problem Specific Plan: Monitor Clinically Problem Text: Counseled family that her symptoms may worsen while in the hospital d/t change in setting. She seems to be doing ok today. 12/01 - stable (3) Hypothyroidism Status: Acute Problem Specific Plan: Monitor Clinically Problem Text: Cont home dose replacement. (4) Urinary retention Status: Acute Problem Text: REquired straight cath over night - U/C ordered but not collected yet - I will straight cath to obtain (5) Anemia Status: Chronic Problem Text: Hgb essentially stable since admission - monitor trend while on Coumadin Of note: EGD/Colonoscopy 2013 - showed only hyperplastic polyps Check iron studies Plan / VTE VTE Prophylaxis Ordered?: Yes (formally anticoagulated with Coumadin) Plan Therapy: PT, OT Pt and Family Services: Other PFS Plan Text Attending attestation: I saw and evaluated the patient, and agree with plan of care as discussed and documented by Susan Chin. Murtaza Alva MD Disposition Patient lives home alone with support from daughter - needs to be independent to return home. PMR eval ordered. PMR vs Subacute Subjective Review of Systems CC/HPI The patient is a 86-year-old female admitted with a reason for visit of CVA. Events since last encounter Patient developed urinary retention last pm required straight cath. Daughter reoprts patient has urinary leakage at home at baseline, but no clear retention in past Constitutional: Denies: Chills, Fever Pulmonary: Denies: Cough, Dyspnea Cardiovascular: Denies: Chest Pain, Palpitations Gastrointestinal: Denies: Abdominal Pain, Diarrhea, Nausea, Vomiting Genitourinary: Reports: Retention (straight cathed last pm) Objective Physical Examination General Exam: Positive: Alert (sleepy but arousable - follows commands - speech clear and coherant), No Acute Distress ENT Exam: Positive: Mucous membr. moist/pink Chest Exam: Positive: Clear to auscultation, Normal air movement Heart Exam: Positive: Normal S1, Normal S2, Rate Normal Abdomen Exam: Positive: Normal bowel sounds, Soft, Negative: Tenderness Extremity Exam: Positive: Edema Neuro Exam: Positive: Normal Speech, Reflexes 2+, Sensation Intact, Strength at 5/5 X4 ext (RUE, RLE strength 3/5 - director of analytical development right weak and right arm clumsy, Right leg with proximal weakness) Psych Exam: Positive: Mood NL, Negative: Memory Intact, Oriented x 3 (to person only) Vital Signs/I&O Vital Signs Date Time Temp Pulse Resp B/P Pulse Ox O2 Delivery O2 Flow Rate FiO2 12/01/16 06:42 146/92 12/01/16 04:00 99.1 85 14 97 Room Air I&O- Last 24 Hours up to 6 AM 12/01/16 06:00 Intake Total 1520 ml Output Total 1500 ml Balance 20 ml Laboratory Data Labs 24H Laboratory Tests 2 12/01/16 06:25: Prothromb Time International Ratio 1.01, Prothrombin Time 13.4 Microbiology Microbiology 11/29/16 MRSA Screen - Final, Complete SUSAN CHIN PA-C Dec 01, 2016 07:58 MURTAZA ALVA MD Dec 07, 2016 17:21
[2016-12-01 08:08] LABS: ALBUMIN 3.2 GM/DL (3.2-5.2); ALBUMIN/GLOBULIN RATIO 1.03 (1.00-1.93); BILIRUBIN,TOTAL 0.3 MG/DL (0.2-1.0); CALCIUM LEVEL 8.6 MG/DL (8.8-10.2); CREATININE FOR GFR 1.33 MG/DL (0.55-1.02); GLOMERULAR FILTRATION RATE 40.3 (>32); POTASSIUM SERUM 3.6 MEQ/L (3.5-5.1); TOTAL PROTEIN 6.3 GM/DL (6.4-8.2)
[2016-12-01 08:18] LABS: MEAN CORPUSCULAR HEMOGLOBIN 22.2 pg (27.0-33.0); MEAN CORPUSCULAR HGB CONC 29.9 g/dl (32.0-36.5); MEAN CORPUSCULAR VOLUME 74.4 fl (80.0-96.0); RED CELL DISTRIBUTION WIDTH 19.6 % (11.5-14.5); WHITE BLOOD COUNT 8.9 K/mm3 (4.0-10.0)
[2016-12-01] MEDS: DONEPEZIL 5 MG TAB PO SCH (09:06)
[2016-12-01] MEDS: ASPIRIN 81 MG ENTERIC TAB PO SCH (09:06)
[2016-12-01] MEDS: PANTOPRAZOLE 40MG TAB (PROTONIX) PO SCH (09:06)
[2016-12-01] MEDS: DOCUSATE SODIUM 100 MG CAP PO SCH ×2 (09:06→20:26)
[2016-12-01] MEDS: VENLAFAXINE 37.5 MG TAB PO SCH (09:07)
--- NOTE | 2016-12-01 09:47 | REP ---
MRA BRAIN: HISTORY: Right sided weakness. 3D [id number] MR angiography was performed at the level of the [place]. There is no aneurysm or arteriovenous malformation. Mild atherosclerotic disease involves the cavernous and supraclinoid internal carotid arteries and the distal posterior cerebral arteries . Major intracranial vessels are patent. The right vertebral artery terminates in the right posterior inferior cerebellar artery. The left vertebral artery is dominant. IMPRESSION: 1. There is no aneurysm or arteriovenous malformation. 2. Atherosclerotic disease as described above. Unreviewed MTDD
--- NOTE | 2016-12-01 09:53 | REP ---
MRI BRAIN WITHOUT CONTRAST: HISTORY: Right side weakness. COMPARISON: 11/28/2016. A small area of increased signal intensity on diffusion weighted images is present in the periventricular white matter of the left parietal lobe. This is decreased in signal intensity on ADC images and is consistent with an acute infarction. Areas of increased signal intensity on T2-weighted images are present in the basal ganglia, thalami and cerebellum. These represent old lacunar infarctions. Punctate and confluent areas of increased signal intensity on T2-weighted images are present in the periventricular and subcortical white matter and cassy. This represents small vessel ischemic disease. There is no intraparenchymal hemorrhage, mass, or midline shift. The ventricular system and cortical sulci are dilated consistent with moderate volume loss. There is no extracerebral collection. The sinuses are clear. IMPRESSION: 1. Small acute left parietal lobe infarction. 2. Old bilateral basal ganglia, thalamic and cerebellar lacunar infarctions. 3. Small vessel ischemic disease. 4. Moderate volume loss. Unreviewed
[2016-12-01 14:41] VITALS: BP 157/99
[2016-12-01] MEDS: WARFARIN SOD 7.5 MG TAB PO SCH (16:44)
[2016-12-01 20:00] VITALS: BP 133/74
[2016-12-01] MEDS: ATORVASTATIN 20 MG TAB PO SCH (20:26)
[2016-12-01] MEDS: ACETAMINOPHEN TAB 650MG DOSE (2X325MG) PO PRN (21:23)
[2016-12-02 00:06] LABS: SJOGREN'S ANTI SS-A <0.2 AI (0.0-0.9); SJOGREN'S ANTI SS-B <0.2 AI (0.0-0.9)
[2016-12-02] MEDS: LEVOTHYROXINE 0.075 MG TAB (75 MCG) PO SCH (05:18)
[2016-12-02 06:00] VITALS: BP 150/84
[2016-12-02 07:01] LABS: INR 1.24
--- NOTE | 2016-12-02 07:47 | IPNPDOC ---
Assessment/Plan Date Seen The patient was seen on 12/02/16. Attending Note: I saw and examined Ms. Samuel and I discussed with Susan HOLLINS - I agree with her note below. Patient states that PT went well today - at this point it has been determined that she will be made SNF status today. PFS is arranging placement for her. She has a frost catheter in currently due to urinary retention - once she is more active, we can try to remove this, perhaps in the next 1-2 days. The only medication that could be contributing to her urinary retention is donepezil - we may need to consider stopping this if urinary retention persists. (KES) Problems Problems: (1) CVA (cerebral vascular accident) Status: Acute Response to Treatment: Stable Discussed With: Patient, Family with Pt Consent Problem Specific Plan: Consult Specialist, Monitor Clinically Problem Text: 11/30 - Coumadin started yesterday. INR 0.93 this AM. On Aspirin 81 mg. 11/29: Change Plavix in favor of Coumadin per neurology's recommendation. 11/28: Dr Saleem consulted by Dr Rodas. She was on ASA 81 prior to admission, added Plavix 75 mg daily, HD statin (has h/o intolerability with leg pains - monitor), MRI/MRA done, report pending. ECHO ordered. PT/OT ordered. She previously resided at home alone, with close family support. 12/01 - Right UE and LE weakness persists - no new deficits MRI - showed small acute left parietal lobe infarction MRA and Carotid US unremarkable Echo pending Continue PT. Add OT. Get PMR evaluation Continue ASA/Coumadin (favored over Plavix - per Neurology) - INR = 1 (increase COumadin dose today) Continue Statin - monitor for leg pain due to h/o intolerance in past 12/02 - INR = 1.24 - continue Coumadin and ASA and Statin PMR eval pending - awaiting insurance approval PFS will notify me as soon as decision made for PMR vs SNF for Subacute Rehab (2) Urinary retention Status: Acute Problem Text: REquired straight cath over night - U/C ordered but not collected yet - I will straight cath to obtain 12/02 - Frost placed yesterday U/C pending Encourage ambulation and OOB (3) Dementia Status: Chronic Problem Specific Plan: Monitor Clinically Problem Text: Counseled family that her symptoms may worsen while in the hospital d/t change in setting. She seems to be doing ok today. 12/01 - stable (4) Hypothyroidism Status: Acute Problem Specific Plan: Monitor Clinically Problem Text: Cont home dose replacement. (5) Anemia Status: Chronic Problem Text: Hgb essentially stable since admission - monitor trend while on Coumadin Of note: EGD/Colonoscopy 2013 - showed only hyperplastic polyps 12/02 - Hgb stable Plan / VTE VTE Prophylaxis Ordered?: Yes (formally anticoagulated with Coumadin) Plan / Urinary Catheter Reason for insertion/continuin: Acute obstruct/retention Plan Therapy: PT, OT Pt and Family Services: Other PFS Subjective Review of Systems CC/HPI The patient is a 86-year-old female admitted with a reason for visit of CVA. Events since last encounter No new concerns or complaints Frost placed yesterday due to urinary retention - feels better. slept better. Constitutional: Denies: Chills, Fever Pulmonary: Denies: Cough, Dyspnea Cardiovascular: Denies: Chest Pain, Orthopnea, Palpitations Gastrointestinal: Denies: Abdominal Pain, Constipation, Diarrhea, Nausea, Vomiting Genitourinary: Reports: Retention (Frost placed) Objective Physical Examination General Exam: Positive: Alert (alert, follows commands), No Acute Distress ENT Exam: Positive: Mucous membr. moist/pink Chest Exam: Positive: Clear to auscultation, Normal air movement Heart Exam: Positive: Normal S1, Normal S2, Rate Normal Abdomen Exam: Positive: Normal bowel sounds, Soft, Negative: Tenderness Extremity Exam: Positive: Edema Neuro Exam: Positive: Normal Speech, Strength at 5/5 X4 ext (RUE, RLE strength 3/5 - science technicians right weak and right arm clumsy, Right leg with proximal weakness) Psych Exam: Positive: Mood NL, Negative: Memory Intact, Oriented x 3 (to person only) Vital Signs/I&O Vital Signs Date Time Temp Pulse Resp B/P Pulse Ox O2 Delivery O2 Flow Rate FiO2 12/02/16 06:00 96.8 75 16 150/84 97 Room Air I&O- Last 24 Hours up to 6 AM 12/02/16 06:00 Intake Total 840 ml Output Total 800 ml Balance 40 ml Laboratory Data Labs 24H Laboratory Tests 2 12/01/16 13:12: Urine Amorphous Sediment , Urine Appearance CLEAR, Urine Color YELLOW, Urine pH 6.0, Urine Specific Anna 1.015, Urine Protein NEGATIVE, Urine Glucose (UA) NEGATIVE, Urine Ketones NEGATIVE, Urine Urobilinogen 0.2, Urine Bilirubin NEGATIVE, Urine Leukocyte Esterase 3+H, Urine Bacteria (Auto) 1+H, Urine Blood 2 +H, Urine Calcium Carbonate Cryst(Auto) , Urine Calcium Oxalate Cryst (Auto) , Urine Calcium Phosphate Jany (Auto) , Urine Cellular Casts , Urine Cystine Crystals , Urine Granular Casts (Auto) , Urine Hyaline Casts (Auto) 0, Urine Leucine Crystals , Urine Mucus (Auto) SMALL, Urine Nitrite NEGATIVE, Urine Oval Fat Bodies (Auto) , Urine RBC (Auto) 68H, Urine Renal Epithelial Cells , Urine Sperm (Auto) , Urine Squamous Epithelial Cells 1, Urine Transitional Epithelial Cells , Urine Trichomonas (Auto) , Urine Triple Phosphate Cryst (Auto) , Urine Tyrosine Crystals , Urine Uric Acid Crystals (Auto) , Urine WBC (Auto) 15H, Urine Waxy Casts (Auto) , Urine Yeast-Like Cells (Auto) 12/02/16 06:31: Prothromb Time International Ratio 1.24, Prothrombin Time 15.7H Microbiology Microbiology 11/29/16 MRSA Screen - Final, Complete 12/01/16 Urine Culture, Received Pending SUSAN CHIN PA-C Dec 02, 2016 07:46 TRISTIAN ARTEAGA MD Dec 02, 2016 14:56
[2016-12-02] MEDS: ASPIRIN 81 MG ENTERIC TAB PO SCH (08:23)
[2016-12-02] MEDS: DOCUSATE SODIUM 100 MG CAP PO SCH ×2 (08:23→20:44)
[2016-12-02] MEDS: DONEPEZIL 5 MG TAB PO SCH (08:23)
[2016-12-02] MEDS: VENLAFAXINE 37.5 MG TAB PO SCH (08:23)
[2016-12-02] MEDS: PANTOPRAZOLE 40MG TAB (PROTONIX) PO SCH (08:23)
[2016-12-02] MEDS: amLODIPine 5 MG TAB PO SCH (08:23)
--- NOTE | 2016-12-02 12:54 | ECHO ---
DATE OF PROCEDURE: 11/29/2016 REFERRING PROVIDER: EMANUEL Manning REASON FOR THE ECHOCARDIOGRAM: TIA/ CVA. 2D MEASUREMENT: IVS - 1.1 cm LV - 4.6 cm LVPW - 1.0 cm LA - 3.3 cm Aorta - 3.2 cm IVC - 1.6 cm RV - 2.8 DOPPLER MEASUREMENT: Peak velocity cross the aortic valve - 1.6 m/s Peak velocity across the LVOT - 1.1 m/s Mitral E - 1.0, Mitral A - 1.5 wit a ratio of less than 1.0 Maximum tricuspid valve velocity - 2.4 m/s 2D COMMENTS: 1. Normal left ventricular size, wall thickness and normal global left ventricular systolic function estimated at 60 to 65%. 2. Normal left atrium. Normal right atrium and right ventricle. 3. The atria septum appeared to be normal without evidence of shunt. 4. Normal aortic root. 5. No pericardial effusion seen. 6. Minimally calcified aortic valve with normal leaflet excursion. Normal mitral valve, and tricuspid valve. The pulmonic valve was not well visualized. The proximal pulmonary artery branches were not visualized. 7. The inferior vena cava was normal in size, central venous pressure is most likely normal. Doppler detects trace aortic regurgitation, trace pulmonic regurgitation, mild tricuspid regurgitation. The calculated pulmonary artery systolic pressure varied between 30 to 40 mmHg. Abnormal relaxation pattern was noted across the mitral valve annulus as well as the mitral valve leaflets consistent with a delayed relaxation. IMPRESSION: 1. Normal global left ventricular systolic function. There were features of left ventricular systolic dysfunction, grade 1. 2. Aortic valve sclerosis with trace aortic regurgitation but no significant aortic stenosis. 3. Mild tricuspid regurgitation with mild pulmonary hypertension. 4. Trace pulmonic regurgitation.
[2016-12-02] MEDS: WARFARIN SOD 7.5 MG TAB PO SCH (17:27)
[2016-12-02 18:00] VITALS: BP 144/79
--- NOTE | 2016-12-02 19:38 | DSES ---
DATE OF ADMISSION: 11/28/2016 DATE OF DISCHARGE: 12/02/2016 BRIEF HISTORY AND PHYSICAL: The patient is an 86-year-old patient of Dr. De Leon, who developed right upper and right lower extremity weakness, started on the Wednesday before admission with some waxing and waning, but it progressively worsened to the point where they could not lift her to move her. They were eventually able to convince the patient to come to the emergency room for evaluation. Past medical history is significant for hypertension, depression, dementia, hypercholesterolemia, degenerative joint disease, hypothyroidism, esophageal reflux, history of statin intolerance causing bilateral leg pain, and hiatal hernia. PERTINENT LABORATORIES ON ADMISSION: White count 6.2, hemoglobin 10.5, platelets 297,000. Sodium 143, potassium 3.3, BUN 22, creatinine 1.3, glucose 129. IMAGING: CT of the head showed no hemorrhage or acute infarct or mass. There was evidence for diffuse volume loss and evidence of chronic microvascular ischemia. Chest x-ray showed no acute cardiopulmonary findings. She went on to have an MRI of the brain that showed small acute left parietal lobe infarction. old bilateral basal ganglia thalamic and cerebellar lacunar infarctions, small vessel ischemic disease and moderate volume loss. MRA was unremarkable. Carotid ultrasound showed no hemodynamically significant areas of narrowing or stenoses bilaterally. HOSPITAL COURSE: 1. The patient was admitted for acute cerebrovascular accident (CVA) with right-sided weakness. She was seen by neurology. Prior to admission she was on a aspirin. Plavix was added, but neurology favored Coumadin over the Plavix and so she was initiated on Coumadin. She is on aspirin and Coumadin at this point, as well as statin therapy. She has a history of intolerance to this with leg pain, so will need to monitor for those symptoms. So far she is tolerating it without side effects and she is getting physical therapy and occupational therapy. She was not a candidate for physical medicine and rehabilitation and so she will be made detention facility (SNF) today for subacute rehabilitation. Her international normalized ratio (INR) on the date of SNF is 1.24. She will need daily INR with adjustments of her Coumadin accordingly. 2. Urinary retention. She developed some urinary retention in the hospital requiring straight catheterization and ultimately Gill catheter was placed. Urine culture has been sent; the results are pending. Ambulation out of bed is encouraged. She has not had problems with urinary retention in the past but has had trouble with urinary incontinence. 3. Dementia. This is chronic and the family is aware of her progressive condition. 4. Hypothyroidism, stable on her current dose of replacement. 5. Anemia. She had esophagogastroduodenoscopy (EGD) and colonoscopy in 2013, showing hyperplastic polyp. Her hemoglobin has remained stable through the hospitalization and will need to be monitored while on Coumadin. DISPOSITION: The patient is stable for SNF status today. Medications will be dictated at the time of her transfer to the residential. DISCHARGE DIAGNOSES: 1. 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 2. Urinary attention requiring Gill catheter. 3. Dementia. 4. Hypertension. 5. Hypothyroidism.
[2016-12-02] MEDS: ACETAMINOPHEN TAB 650MG DOSE (2X325MG) PO PRN (20:44)
[2016-12-02] MEDS: ATORVASTATIN 20 MG TAB PO SCH (20:44)
[2016-12-02 22:00] VITALS: BP 141/86
[2016-12-03 00:06] LABS: PROTEIN C ANTIGEN 92 % (60-150); PROTEIN S ANTIGEN FREE 158 % (57-157); PROTEIN S ANTIGEN TOTAL 114 % (60-150)
[2016-12-03 06:00] VITALS: BP 150/95
[2016-12-03] MEDS: LEVOTHYROXINE 0.075 MG TAB (75 MCG) PO SCH (06:13)
[2016-12-03 06:37] VITALS: BP 136/80
[2016-12-03 06:58] LABS: INR 1.77
[2016-12-03 08:38] VITALS: BP 183/93
[2016-12-03] MEDS: DOCUSATE SODIUM 100 MG CAP PO SCH ×2 (09:42→20:00)
[2016-12-03] MEDS: VENLAFAXINE 37.5 MG TAB PO SCH (09:43)
[2016-12-03] MEDS: PANTOPRAZOLE 40MG TAB (PROTONIX) PO SCH (09:43)
[2016-12-03] MEDS: amLODIPine 5 MG TAB PO SCH (09:43)
[2016-12-03] MEDS: ASPIRIN 81 MG ENTERIC TAB PO SCH (09:43)
[2016-12-03 10:00] VITALS: BP 166/82
[2016-12-03] MEDS: CEPHALEXIN 500 MG CAP PO SCH ×2 (10:52→20:00)
[2016-12-03] MEDS: WARFARIN SOD 7.5 MG TAB PO SCH (17:32)
[2016-12-03] MEDS: ACETAMINOPHEN TAB 650MG DOSE (2X325MG) PO PRN (20:00)
[2016-12-03] MEDS: ATORVASTATIN 20 MG TAB PO SCH (20:00)
[2016-12-03 22:00] VITALS: BP 151/83
[2016-12-04] MEDS: LEVOTHYROXINE 0.075 MG TAB (75 MCG) PO SCH (05:47)
[2016-12-04 06:41] VITALS: BP 140/82
[2016-12-04 06:52] LABS: INR 2.04
[2016-12-04 09:15] VITALS: BP 154/95
[2016-12-04] MEDS: VENLAFAXINE 37.5 MG TAB PO SCH (10:22)
[2016-12-04] MEDS: ASPIRIN 81 MG ENTERIC TAB PO SCH (10:22)
[2016-12-04] MEDS: CEPHALEXIN 500 MG CAP PO SCH ×2 (10:23→21:42)
[2016-12-04] MEDS: amLODIPine 5 MG TAB PO SCH (10:23)
[2016-12-04] MEDS: PANTOPRAZOLE 40MG TAB (PROTONIX) PO SCH (10:24)
[2016-12-04] MEDS: DOCUSATE SODIUM 100 MG CAP PO SCH ×2 (10:24→21:00)
[2016-12-04 14:00] VITALS: BP 172/91
[2016-12-04] MEDS: WARFARIN SOD 7.5 MG TAB PO SCH (16:56)
[2016-12-04] MEDS: ATORVASTATIN 20 MG TAB PO SCH (21:42)
[2016-12-04] MEDS: ACETAMINOPHEN TAB 650MG DOSE (2X325MG) PO PRN (21:44)
[2016-12-04 22:00] VITALS: BP 144/86
[2016-12-05 06:00] VITALS: BP 148/62
[2016-12-05] MEDS: LEVOTHYROXINE 0.075 MG TAB (75 MCG) PO SCH (06:05)
[2016-12-05 06:50] LABS: INR 2.29
[2016-12-05] MEDS: CEPHALEXIN 500 MG CAP PO SCH ×2 (08:49→20:43)
[2016-12-05] MEDS: PANTOPRAZOLE 40MG TAB (PROTONIX) PO SCH (08:49)
[2016-12-05] MEDS: amLODIPine 5 MG TAB PO SCH (08:50)
[2016-12-05] MEDS: VENLAFAXINE 37.5 MG TAB PO SCH (08:52)
[2016-12-05] MEDS: DOCUSATE SODIUM 100 MG CAP PO SCH ×2 (08:52→20:42)
[2016-12-05] MEDS: ASPIRIN 81 MG ENTERIC TAB PO SCH (08:52)
[2016-12-05 14:00] VITALS: BP 146/86
[2016-12-05] MEDS: WARFARIN SOD 7.5 MG TAB PO SCH (18:10)
[2016-12-05] MEDS: ATORVASTATIN 20 MG TAB PO SCH (20:43)
[2016-12-05] MEDS: ACETAMINOPHEN TAB 650MG DOSE (2X325MG) PO PRN (20:48)
[2016-12-05 22:00] VITALS: BP 142/82
[2016-12-06] MEDS: LEVOTHYROXINE 0.075 MG TAB (75 MCG) PO SCH (05:27)
[2016-12-06 06:00] VITALS: BP 142/76
[2016-12-06 06:41] LABS: INR 2.65
[2016-12-06 08:11] VITALS: BP 142/76
[2016-12-06] MEDS: DOCUSATE SODIUM 100 MG CAP PO SCH (08:11)
[2016-12-06] MEDS: VENLAFAXINE 37.5 MG TAB PO SCH (08:11)
[2016-12-06] MEDS: ASPIRIN 81 MG ENTERIC TAB PO SCH (08:11)
[2016-12-06] MEDS: amLODIPine 5 MG TAB PO SCH (08:11)
[2016-12-06] MEDS: CEPHALEXIN 500 MG CAP PO SCH (08:11)
[2016-12-06] MEDS: PANTOPRAZOLE 40MG TAB (PROTONIX) PO SCH (08:11)
[2016-12-06] MEDS ORDERED: CEPH500C PO (08:53)
[2016-12-06] MEDS ORDERED: COUM1TAB17 PO (08:53)
[2016-12-06] MEDS ORDERED: WARFARIN SOD 5 MG TAB PO SCH (17:00)
--- NOTE | 2016-12-07 17:14 | DSES ---
DATE OF ADMISSION: 11/28/2016 DATE OF DISCHARGE: 12/06/2016 Dictation goes from the date of the correction facility (SNF) summary from 12/02/2016, to the date of discharge, which is 12/06/2016. The patient was started on antibiotics for an Escherichia (E) coli urinary tract infection (UTI). She has been placed on Keflex. Her urinary catheter was kept in for 24 hours or so after starting antibiotics and then was discontinued. However, she continued to show signs of urinary retention and therefore an order for her to be straight catheterized as needed for a bladder scan showing a urine over 300 has been ordered. She is on Coumadin for anticoagulation. Her INR went up to 2.65. She had been getting Coumadin 7.5 mg daily, at this point that dose will be changed to 5 mg daily and she will need monitoring of her Coumadin. DISPOSITION: She is stable for transfer to [facility] for rehabilitation. MEDICATIONS: - Keflex 500 mg twice a day - Coumadin 5 mg daily - amlodipine 5 mg daily - aspirin 81 mg daily - levothyroxine 75 mcg daily - omeprazole 40 mg daily - venlafaxine 150 mg daily She will be straight catheterized if bladder scan is greater than 300 as needed. DISCHARGE DIAGNOSES: In addition to those already dictated include: Escherichia (E) coli urinary tract infection (UTI).
== END 2016-12-06 11:20 | DRG 65 ==
LOC: M ED 10:41 → M ED INP 14:56 → M ICU 11-29 05:33 → M PCU 11-29 22:12 → M MS5PR 11-30 11:05
PROVIDERS: ADMIT Family Medicine; ATTEND Family Medicine
DX: I63.9 Cerebral infarction, unspecified (principal); I69.351 Hemiplegia and hemiparesis following cerebral infarction affecting right dominant side; N39.0 Urinary tract infection, site not specified; E03.9 Hypothyroidism, unspecified; F32.9 Major depressive disorder, single episode, unspecified; K44.9 Diaphragmatic hernia without obstruction or gangrene; Z66 Do not resuscitate; I10 Essential (primary) hypertension; D64.9 Anemia, unspecified; R33.9 Retention of urine, unspecified; I73.9 Peripheral vascular disease, unspecified; K21.9 Gastro-esophageal reflux disease without esophagitis; E78.00 Pure hypercholesterolemia, unspecified; F03.90 Unspecified dementia, unspecified severity, without behavioral disturbance, psychotic disturbance, mood disturbance, and anxiety; B96.20 Unspecified Escherichia coli [E. coli] as the cause of diseases classified elsewhere; Z79.01 Long term (current) use of anticoagulants; Z79.82 Long term (current) use of aspirin; Z79.899 Other long term (current) drug therapy; Z90.49 Acquired absence of other specified parts of digestive tract; Z87.891 Personal history of nicotine dependence; Z88.8 Allergy status to other drugs, medicaments and biological substances

== ENCOUNTER → 2017-01-28 | Outpatient (REF) | payer MEDICARE, MEDICAID ==
[~2017-01-28] MED LIST: ARIC5TAB PO; ASPI81TA85 PO; CEPH500C PO; COUM1TAB17 PO; IBUPOTC PO; NORV5TAB PO; OMEP40CA2 PO; SYNT75TA PO; VENL75TA2 PO
== END ==
LOC: M SMT 14:00
PROVIDERS: ATTEND Nurse Practitioner Women's Health
DX: R33.9 Retention of urine, unspecified (principal)
CPT/HCPCS: 51701; 87086; G0463

== ENCOUNTER → 2017-02-18 | Outpatient (REF) ==
[2017-02-18 08:28] LABS: INR 1.91
== END ==
LOC: SKLAB7 07:00
PROVIDERS: ATTEND Family Medicine
DX: Z86.73 Personal history of transient ischemic attack (TIA), and cerebral infarction without residual deficits (principal); Z79.01 Long term (current) use of anticoagulants

== ENCOUNTER → 2017-02-26 | Outpatient (REF) | payer MEDICARE, MEDICAID ==
[2017-02-26 08:44] LABS: INR 2.11
== END ==
LOC: SKLAB7 07:00
PROVIDERS: ATTEND Family Medicine
DX: Z86.73 Personal history of transient ischemic attack (TIA), and cerebral infarction without residual deficits (principal); Z79.01 Long term (current) use of anticoagulants

== ENCOUNTER → 2017-03-04 | Outpatient (REF) | payer MEDICARE, MEDICAID ==
[2017-03-04 08:43] LABS: BASO % 0.8 % (0.0-1.0); LARGE UNSTAINED CELL # 0.1 K/mm3 (0.0-0.4); LARGE UNSTAINED CELL % 1.6 % (0.0-4.0); LYMPH # 1.1 K/mm3 (1.5-4.5); LYMPH % 16.4 % (24.0-44.0); MEAN CORPUSCULAR HEMOGLOBIN 22.1 pg (27.0-33.0); MEAN CORPUSCULAR HGB CONC 28.9 g/dl (32.0-36.5); MEAN CORPUSCULAR VOLUME 76.4 fl (80.0-96.0); MONO # 0.4 K/mm3 (0.0-0.8); MONO % 5.9 % (0.0-5.0); NEUTROPHILS # 4.8 K/mm3 (1.8-7.7); NEUTROPHILS % 75.2 % (36.0-66.0); PLATELET COUNT, AUTOMATED 377 k/mm3 (150-450); WHITE BLOOD COUNT 6.4 K/mm3 (4.0-10.0)
[2017-03-04 08:52] LABS: INR 1.94
[2017-03-04 09:01] LABS: ADD MORPHOLOGY? YES
[2017-03-04 09:02] LABS: ANISOCYTOSIS 3+; HYPOCHROMASIA 2+; MICROCYTOSIS 2+
[2017-03-04 09:03] LABS: PLATELET CLUMPS SMALL AMT
[2017-03-04 09:25] LABS: ALBUMIN 2.5 GM/DL (3.2-5.2); ALBUMIN/GLOBULIN RATIO 0.66 (1.00-1.93); ALKALINE PHOSPHATASE 620 U/L (45-117); ALT/SGPT 49 U/L (12-78); ANION GAP 10 MEQ/L (8-16); AST/SGOT 79 U/L (15-37); BILIRUBIN,TOTAL 0.3 MG/DL (0.2-1.0); BLOOD UREA NITROGEN 22 MG/DL (7-18); CALCIUM LEVEL 8.2 MG/DL (8.8-10.2); CARBON DIOXIDE LEVEL 27 MEQ/L (21-32); CHLORIDE LEVEL 106 MEQ/L (98-107); CHOLESTEROL LEVEL 110 MG/DL (<200); CREATININE FOR GFR 0.94 MG/DL (0.55-1.02); GLOMERULAR FILTRATION RATE > 60.0 (>32); GLUCOSE, FASTING 94 MG/DL (83-110); POTASSIUM SERUM 3.4 MEQ/L (3.5-5.1); SODIUM LEVEL 143 MEQ/L (136-145); TOTAL PROTEIN 6.3 GM/DL (6.4-8.2); TRIGLYCERIDES LEVEL 36 MG/DL (<150)
== END ==
LOC: SKLAB7 08:00
PROVIDERS: ATTEND Family Medicine
DX: D64.9 Anemia, unspecified (principal); I10 Essential (primary) hypertension; E03.9 Hypothyroidism, unspecified; Z86.73 Personal history of transient ischemic attack (TIA), and cerebral infarction without residual deficits; Z79.899 Other long term (current) drug therapy

== ENCOUNTER → 2017-03-11 | Outpatient (REF) | payer MEDICARE, MEDICAID ==
[2017-03-11 09:21] LABS: INR 1.98
== END ==
LOC: SKLAB7 08:00
PROVIDERS: ATTEND Family Medicine
DX: I48.91 Unspecified atrial fibrillation (principal)

== ENCOUNTER → 2017-03-17 | Outpatient (REF) | payer MEDICARE, MEDICAID ==
--- NOTE | 2017-03-17 14:26 | REP ---
Clinical: Pain. Status post fall. Technique: AP and frog lateral views of the right hip. Comparison: 09/03/2009. Findings: Age-related degenerative changes are appreciated along with old loose body along the posterior aspect of the acetabulum and joint space. No acute fracture dislocation. Impression: Chronic degenerative changes. No acute fracture or dislocation. Signed by Teo Cintron MD 03/17/2017 02:17 P
== END ==
LOC: SKLAB7 13:26
PROVIDERS: ATTEND Family Medicine
DX: M16.11 Unilateral primary osteoarthritis, right hip (principal)

== ENCOUNTER → 2017-03-18 | Outpatient (REF) | payer MEDICARE, MEDICAID ==
[2017-03-18 08:59] LABS: INR 1.6
[2017-03-18 10:14] LABS: BASO % 0.8 % (0.0-1.0); EOS % 0.2 % (0.0-3.0); LARGE UNSTAINED CELL # 0.1 K/mm3 (0.0-0.4); LARGE UNSTAINED CELL % 2.3 % (0.0-4.0); LYMPH # 1.1 K/mm3 (1.5-4.5); LYMPH % 17.8 % (24.0-44.0); MEAN CORPUSCULAR HEMOGLOBIN 24.2 pg (27.0-33.0); MEAN CORPUSCULAR HGB CONC 30.3 g/dl (32.0-36.5); MEAN CORPUSCULAR VOLUME 79.9 fl (80.0-96.0); MONO # 0.3 K/mm3 (0.0-0.8); MONO % 6.1 % (0.0-5.0); NEUTROPHILS % 72.9 % (36.0-66.0); PLATELET COUNT, AUTOMATED 282 k/mm3 (150-450); RED CELL DISTRIBUTION WIDTH 26.9 % (11.5-14.5); WHITE BLOOD COUNT 5.4 K/mm3 (4.0-10.0)
[2017-03-18 10:19] LABS: ADD MORPHOLOGY? YES
[2017-03-18 10:40] LABS: ANISOCYTOSIS 3+; HYPOCHROMASIA 2+; MICROCYTOSIS 3+
[2017-03-18 10:43] LABS: ACANTHOCYTES 1+
== END ==
LOC: SKLAB7 10:19
PROVIDERS: ATTEND Family Medicine
DX: I48.91 Unspecified atrial fibrillation (principal); D64.9 Anemia, unspecified; Z79.899 Other long term (current) drug therapy

== ENCOUNTER → 2017-03-25 | Outpatient (REF) | payer MEDICARE, MEDICAID ==
[2017-03-25 09:42] LABS: INR 2.18
== END ==
LOC: SKLAB7 07:00
PROVIDERS: ATTEND Family Medicine
DX: I48.91 Unspecified atrial fibrillation (principal); Z79.899 Other long term (current) drug therapy

== ENCOUNTER → 2017-04-01 | Outpatient (REF) | payer MEDICARE, MEDICAID ==
[2017-04-01 08:46] LABS: INR 1.09
== END ==
LOC: SKLAB7 07:00
PROVIDERS: ATTEND Family Medicine
DX: Z51.81 Encounter for therapeutic drug level monitoring (principal); Z79.01 Long term (current) use of anticoagulants; I48.91 Unspecified atrial fibrillation

== ENCOUNTER → 2017-04-05 | Outpatient (REF) | payer MEDICARE, MEDICAID ==
[2017-04-05 13:11] LABS: INR 1.3
== END ==
LOC: SKLAB7 11:06
PROVIDERS: ATTEND Family Medicine
DX: Z51.81 Encounter for therapeutic drug level monitoring (principal); Z79.01 Long term (current) use of anticoagulants; I48.91 Unspecified atrial fibrillation

== ENCOUNTER → 2017-04-08 | Outpatient (REF) | payer MEDICARE, MEDICAID ==
[2017-04-08 09:54] LABS: MEAN CORPUSCULAR HEMOGLOBIN 26.4 pg (27.0-33.0); MEAN CORPUSCULAR HGB CONC 31.5 g/dl (32.0-36.5); MEAN CORPUSCULAR VOLUME 83.9 fl (80.0-96.0); RED CELL DISTRIBUTION WIDTH 26.1 % (11.5-14.5); WHITE BLOOD COUNT 4.8 K/mm3 (4.0-10.0)
[2017-04-08 09:59] LABS: INR 1.58
== END ==
LOC: SKLAB7 07:00
PROVIDERS: ATTEND Family Medicine
DX: I48.91 Unspecified atrial fibrillation (principal); D64.9 Anemia, unspecified

== ENCOUNTER → 2017-04-15 | Outpatient (REF) | payer MEDICARE, MEDICAID ==
[2017-04-15 09:23] LABS: INR 2.42
== END ==
LOC: SKLAB7 08:00
PROVIDERS: ATTEND Family Medicine
DX: I48.91 Unspecified atrial fibrillation (principal)

== ENCOUNTER → 2017-04-19 | Outpatient (REF) | payer MEDICARE, MEDICAID ==
[2017-04-19 20:23] LABS: CALCIUM OXALATE CRYSTALS SMALL
== END ==
LOC: SKLAB7 20:01
PROVIDERS: ATTEND Family Medicine
DX: R82.99 Other abnormal findings in urine (principal); R41.0 Disorientation, unspecified

== ENCOUNTER → 2017-04-19 | Outpatient (REF) | payer MEDICARE, MEDICAID | LOC: SKLAB7 20:28 | PROVIDERS: ATTEND Family Medicine | DX: R82.99 Other abnormal findings in urine (principal); R41.0 Disorientation, unspecified ==

== ENCOUNTER → 2017-04-22 | Outpatient (REF) | payer MEDICARE, MEDICAID ==
[2017-04-22 09:09] LABS: BASO # 0.1 K/mm3 (0.0-0.2); BASO % 1.5 % (0.0-1.0); EOS % 0.3 % (0.0-3.0); LARGE UNSTAINED CELL # 0.1 K/mm3 (0.0-0.4); LARGE UNSTAINED CELL % 1.3 % (0.0-4.0); LYMPH # 0.9 K/mm3 (1.5-4.5); LYMPH % 13.1 % (24.0-44.0); MEAN CORPUSCULAR HEMOGLOBIN 27.5 pg (27.0-33.0); MEAN CORPUSCULAR HGB CONC 31.5 g/dl (32.0-36.5); MEAN CORPUSCULAR VOLUME 87.3 fl (80.0-96.0); MONO # 0.4 K/mm3 (0.0-0.8); MONO % 5.2 % (0.0-5.0); NEUTROPHILS # 5.7 K/mm3 (1.8-7.7); NEUTROPHILS % 80.1 % (36.0-66.0); PLATELET COUNT, AUTOMATED 236 k/mm3 (150-450); RED CELL DISTRIBUTION WIDTH 24.5 % (11.5-14.5); WHITE BLOOD COUNT 7.1 K/mm3 (4.0-10.0)
[2017-04-22 09:12] LABS: ADD MORPHOLOGY? YES
[2017-04-22 09:13] LABS: INR 2.46
== END ==
LOC: SKLAB7 08:00
PROVIDERS: ATTEND Family Medicine
DX: I63.9 Cerebral infarction, unspecified (principal); D64.9 Anemia, unspecified

== ENCOUNTER → 2017-04-29 | Outpatient (REF) | payer MEDICARE, MEDICAID ==
[~2017-04-29] MED LIST changes: +ARIC1TAB PO; -ARIC5TAB PO
[2017-04-29 08:26] LABS: INR 4.05
== END ==
LOC: SKLAB7 07:00
PROVIDERS: ATTEND Family Medicine
DX: I48.91 Unspecified atrial fibrillation (principal)

== ENCOUNTER → 2017-05-06 | Outpatient (REF) | payer MEDICARE, MEDICAID ==
[2017-05-06 09:14] LABS: BASO # 0.1 K/mm3 (0.0-0.2); BASO % 1.6 % (0.0-1.0); EOS % 0.4 % (0.0-3.0); LARGE UNSTAINED CELL # 0.1 K/mm3 (0.0-0.4); LARGE UNSTAINED CELL % 2.4 % (0.0-4.0); LYMPH % 17.5 % (24.0-44.0); MEAN CORPUSCULAR HEMOGLOBIN 28.8 pg (27.0-33.0); MEAN CORPUSCULAR HGB CONC 32.1 g/dl (32.0-36.5); MEAN CORPUSCULAR VOLUME 89.8 fl (80.0-96.0); MONO # 0.4 K/mm3 (0.0-0.8); MONO % 6.7 % (0.0-5.0); NEUTROPHILS # 4.1 K/mm3 (1.8-7.7); NEUTROPHILS % 71.4 % (36.0-66.0); PLATELET COUNT, AUTOMATED 225 k/mm3 (150-450); RED CELL DISTRIBUTION WIDTH 22.4 % (11.5-14.5); WHITE BLOOD COUNT 5.8 K/mm3 (4.0-10.0)
[2017-05-06 09:17] LABS: ADD MORPHOLOGY? YES
[2017-05-06 09:20] LABS: INR 2.28
[2017-05-06 10:23] LABS: ANISOCYTOSIS 2+; POIKILOCYTOSIS 1+
== END ==
LOC: SKLAB7 11:52
PROVIDERS: ATTEND Family Medicine
DX: I48.91 Unspecified atrial fibrillation (principal)

== ENCOUNTER → 2017-05-13 | Outpatient (REF) | payer MEDICARE, MEDICAID ==
[2017-05-13 10:33] LABS: INR 3.17
== END ==
LOC: SKLAB7 14:35
PROVIDERS: ATTEND Family Medicine
DX: Z51.81 Encounter for therapeutic drug level monitoring (principal); Z79.01 Long term (current) use of anticoagulants; I48.91 Unspecified atrial fibrillation

== ENCOUNTER → 2017-05-20 | Outpatient (REF) | payer MEDICARE, MEDICAID ==
[2017-05-20 08:36] LABS: EOS # 0.1 K/mm3 (0.0-0.50); EOS % 1.4 % (0.0-3.0); LARGE UNSTAINED CELL # 0.1 K/mm3 (0.0-0.4); LARGE UNSTAINED CELL % 2.1 % (0.0-4.0); LYMPH # 1.2 K/mm3 (1.5-4.5); LYMPH % 20.8 % (24.0-44.0); MEAN CORPUSCULAR HEMOGLOBIN 29.2 pg (27.0-33.0); MEAN CORPUSCULAR HGB CONC 32.6 g/dl (32.0-36.5); MEAN CORPUSCULAR VOLUME 89.8 fl (80.0-96.0); MONO # 0.4 K/mm3 (0.0-0.8); MONO % 6.7 % (0.0-5.0); NEUTROPHILS # 3.6 K/mm3 (1.8-7.7); NEUTROPHILS % 68.1 % (36.0-66.0); PLATELET COUNT, AUTOMATED 194 k/mm3 (150-450); RED CELL DISTRIBUTION WIDTH 20.4 % (11.5-14.5); WHITE BLOOD COUNT 5.3 K/mm3 (4.0-10.0)
[2017-05-20 08:38] LABS: INR 1.6
== END ==
LOC: SKLAB7 07:00
PROVIDERS: ATTEND Family Medicine
DX: I48.91 Unspecified atrial fibrillation (principal)

== ENCOUNTER → 2017-05-27 | Outpatient (REF) | payer MEDICARE, MEDICAID ==
[2017-05-27 08:41] LABS: INR 3.18
== END ==
LOC: SKLAB7 07:00
PROVIDERS: ATTEND Family Medicine
DX: I48.91 Unspecified atrial fibrillation (principal)

== ENCOUNTER → 2017-06-03 | Outpatient (REF) | payer MEDICARE, MEDICAID ==
[2017-06-03 08:41] LABS: BASO % 1.3 % (0.0-1.0); EOS # 0.1 K/mm3 (0.0-0.50); EOS % 2.4 % (0.0-3.0); LARGE UNSTAINED CELL # 0.1 K/mm3 (0.0-0.4); LARGE UNSTAINED CELL % 1.8 % (0.0-4.0); LYMPH # 1.2 K/mm3 (1.5-4.5); LYMPH % 28.6 % (24.0-44.0); MEAN CORPUSCULAR HGB CONC 32.9 g/dl (32.0-36.5); MEAN CORPUSCULAR VOLUME 91.1 fl (80.0-96.0); MONO # 0.2 K/mm3 (0.0-0.8); MONO % 6.1 % (0.0-5.0); NEUTROPHILS # 2.4 K/mm3 (1.8-7.7); NEUTROPHILS % 59.9 % (36.0-66.0); PLATELET COUNT, AUTOMATED 238 k/mm3 (150-450); RED CELL DISTRIBUTION WIDTH 18.4 % (11.5-14.5)
[2017-06-03 08:43] LABS: INR 4.04
== END ==
LOC: SKLAB7 14:12
PROVIDERS: ATTEND Family Medicine
DX: Z51.81 Encounter for therapeutic drug level monitoring (principal); Z79.01 Long term (current) use of anticoagulants; I48.91 Unspecified atrial fibrillation

== ENCOUNTER → 2017-06-06 | Outpatient (REF) | payer MEDICARE, MEDICAID ==
[2017-06-06 08:58] LABS: INR 1.81
== END ==
LOC: SKLAB7 07:00
PROVIDERS: ATTEND Family Medicine
DX: Z51.81 Encounter for therapeutic drug level monitoring (principal); Z79.01 Long term (current) use of anticoagulants; I48.91 Unspecified atrial fibrillation

== ENCOUNTER → 2017-06-10 | Outpatient (REF) | payer MEDICARE, MEDICAID ==
[2017-06-10 09:13] LABS: INR 2.24
== END ==
LOC: SKLAB7 07:00
PROVIDERS: ATTEND Family Medicine
DX: Z51.81 Encounter for therapeutic drug level monitoring (principal); Z79.01 Long term (current) use of anticoagulants; I48.91 Unspecified atrial fibrillation

== ENCOUNTER → 2017-06-17 | Outpatient (REF) | payer MEDICARE, MEDICAID ==
[2017-06-17 09:26] LABS: INR 3.99
[2017-06-17 09:32] LABS: BASO % 0.7 % (0.0-1.0); EOS # 0.1 K/mm3 (0.0-0.50); EOS % 2.8 % (0.0-3.0); LARGE UNSTAINED CELL # 0.1 K/mm3 (0.0-0.4); LARGE UNSTAINED CELL % 2.2 % (0.0-4.0); LYMPH # 1.1 K/mm3 (1.5-4.5); LYMPH % 24.8 % (24.0-44.0); MEAN CORPUSCULAR HEMOGLOBIN 30.2 pg (27.0-33.0); MEAN CORPUSCULAR HGB CONC 32.7 g/dl (32.0-36.5); MEAN CORPUSCULAR VOLUME 92.4 fl (80.0-96.0); MONO # 0.4 K/mm3 (0.0-0.8); MONO % 8.9 % (0.0-5.0); NEUTROPHILS # 2.8 K/mm3 (1.8-7.7); NEUTROPHILS % 60.7 % (36.0-66.0); PLATELET COUNT, AUTOMATED 171 k/mm3 (150-450); RED CELL DISTRIBUTION WIDTH 16.2 % (11.5-14.5); WHITE BLOOD COUNT 4.5 K/mm3 (4.0-10.0)
== END ==
LOC: SKLAB7 08:17
PROVIDERS: ATTEND Family Medicine
DX: E78.5 Hyperlipidemia, unspecified (principal); Z86.73 Personal history of transient ischemic attack (TIA), and cerebral infarction without residual deficits

== ENCOUNTER → 2017-06-24 | Outpatient (REF) | payer MEDICARE, MEDICAID ==
[2017-06-24 08:45] LABS: INR 4.45
== END ==
LOC: SKLAB7 07:00
PROVIDERS: ATTEND Family Medicine
DX: Z51.81 Encounter for therapeutic drug level monitoring (principal); I48.91 Unspecified atrial fibrillation

== ENCOUNTER → 2017-07-01 | Outpatient (REF) | payer MEDICARE, MEDICAID ==
[2017-07-01 08:20] LABS: EOS # 0.1 K/mm3 (0.0-0.50); EOS % 2.9 % (0.0-3.0); LARGE UNSTAINED CELL # 0.1 K/mm3 (0.0-0.4); LARGE UNSTAINED CELL % 1.6 % (0.0-4.0); LYMPH % 20.3 % (24.0-44.0); MEAN CORPUSCULAR HEMOGLOBIN 30.2 pg (27.0-33.0); MEAN CORPUSCULAR HGB CONC 32.8 g/dl (32.0-36.5); MONO # 0.3 K/mm3 (0.0-0.8); MONO % 6.3 % (0.0-5.0); NEUTROPHILS # 3.1 K/mm3 (1.8-7.7); PLATELET COUNT, AUTOMATED 188 k/mm3 (150-450); RED CELL DISTRIBUTION WIDTH 15.2 % (11.5-14.5); WHITE BLOOD COUNT 4.6 K/mm3 (4.0-10.0)
[2017-07-01 08:33] LABS: INR 2.91
[2017-07-01 08:46] LABS: ALBUMIN 2.7 GM/DL (3.2-5.2); ALBUMIN/GLOBULIN RATIO 0.9 (1.00-1.93); BILIRUBIN,TOTAL 0.4 MG/DL (0.2-1.0); CALCIUM LEVEL 8.9 MG/DL (8.8-10.2); CREATININE FOR GFR 1.02 MG/DL (0.55-1.02); GLOMERULAR FILTRATION RATE 54.6 (>32); POTASSIUM SERUM 3.4 MEQ/L (3.5-5.1); TOTAL PROTEIN 5.7 GM/DL (6.4-8.2)
== END ==
LOC: SKLAB7 14:34
PROVIDERS: ATTEND Family Medicine
DX: Z51.81 Encounter for therapeutic drug level monitoring (principal); Z79.01 Long term (current) use of anticoagulants

== ENCOUNTER → 2017-07-08 | Outpatient (REF) | payer MEDICARE, MEDICAID ==
[2017-07-08 08:40] LABS: INR 3.15
== END ==
LOC: SKLAB7 15:00
PROVIDERS: ATTEND Family Medicine
DX: Z51.81 Encounter for therapeutic drug level monitoring (principal); Z79.01 Long term (current) use of anticoagulants; I48.91 Unspecified atrial fibrillation

== ENCOUNTER → 2017-07-15 | Outpatient (REF) | payer MEDICARE, MEDICAID ==
[2017-07-15 09:28] LABS: INR 3.95
[2017-07-15 09:35] LABS: BASO % 0.7 % (0.0-1.0); EOS # 0.1 K/mm3 (0.0-0.50); EOS % 1.7 % (0.0-3.0); LARGE UNSTAINED CELL # 0.1 K/mm3 (0.0-0.4); LARGE UNSTAINED CELL % 1.2 % (0.0-4.0); LYMPH # 1.1 K/mm3 (1.5-4.5); LYMPH % 19.8 % (24.0-44.0); MEAN CORPUSCULAR HEMOGLOBIN 31.2 pg (27.0-33.0); MEAN CORPUSCULAR HGB CONC 33.8 g/dl (32.0-36.5); MEAN CORPUSCULAR VOLUME 92.4 fl (80.0-96.0); MONO # 0.4 K/mm3 (0.0-0.8); MONO % 6.9 % (0.0-5.0); NEUTROPHILS # 3.9 K/mm3 (1.8-7.7); NEUTROPHILS % 69.8 % (36.0-66.0); PLATELET COUNT, AUTOMATED 217 k/mm3 (150-450); RED CELL DISTRIBUTION WIDTH 14.5 % (11.5-14.5); WHITE BLOOD COUNT 5.6 K/mm3 (4.0-10.0)
== END ==
LOC: SKLAB7 07:00
PROVIDERS: ATTEND Family Medicine
DX: I48.91 Unspecified atrial fibrillation (principal); D64.9 Anemia, unspecified

== ENCOUNTER → 2017-07-22 | Outpatient (REF) | payer MEDICARE, MEDICAID ==
[2017-07-22 09:32] LABS: INR 2.71
== END ==
LOC: SKLAB7 08:09
PROVIDERS: ATTEND Family Medicine
DX: I48.91 Unspecified atrial fibrillation (principal)

== ENCOUNTER → 2017-07-29 | Outpatient (REF) | payer MEDICARE, MEDICAID ==
[2017-07-29 08:19] LABS: MEAN CORPUSCULAR HEMOGLOBIN 30.2 pg (27.0-33.0); MEAN CORPUSCULAR HGB CONC 32.4 g/dl (32.0-36.5); MEAN CORPUSCULAR VOLUME 93.1 fl (80.0-96.0); RED CELL DISTRIBUTION WIDTH 14.9 % (11.5-14.5); WHITE BLOOD COUNT 5.5 10^3/uL (4.0-10.0)
[2017-07-29 08:28] LABS: INR 3.06
== END ==
LOC: SKLAB7 11:38
PROVIDERS: ATTEND Family Medicine
DX: I48.91 Unspecified atrial fibrillation (principal); D64.9 Anemia, unspecified

== ENCOUNTER → 2017-08-05 | Outpatient (REF) | payer MEDICARE, MEDICAID ==
[2017-08-05 08:51] LABS: INR 3.22
== END ==
LOC: SKLAB3 13:47
PROVIDERS: ATTEND Family Medicine
DX: I48.91 Unspecified atrial fibrillation (principal)

== ENCOUNTER → 2017-08-12 | Outpatient (REF) | payer MEDICARE, MEDICAID ==
[2017-08-12 09:36] LABS: BASO # 0.1 10^3/uL (0.0-0.2); BASO % 1.1 % (0.0-1.0); EOS # 0.1 10^3/uL (0.0-0.50); EOS % 2.6 % (0.0-3.0); IMMATURE GRANULOCYTE % 0.2 % (0-0); LYMPH # 1.2 10^3/uL (1.5-4.5); MEAN CORPUSCULAR HEMOGLOBIN 31.4 pg (27.0-33.0); MEAN CORPUSCULAR HGB CONC 33.3 g/dl (32.0-36.5); MEAN CORPUSCULAR VOLUME 94.1 fl (80.0-96.0); MONO # 0.3 10^3/uL (0.0-0.8); NEUTROPHILS # 3.6 10^3/uL (1.8-7.7); NEUTROPHILS % 67.1 % (36.0-66.0); PLATELET COUNT, AUTOMATED 197 10^3/uL (150-450); RED CELL DISTRIBUTION WIDTH 15.3 % (11.5-14.5); WHITE BLOOD COUNT 5.4 10^3/uL (4.0-10.0)
[2017-08-12 10:01] LABS: INR 2.74
== END ==
LOC: SKLAB7 14:14
PROVIDERS: ATTEND Family Medicine
DX: I48.91 Unspecified atrial fibrillation (principal); D64.9 Anemia, unspecified; Z51.81 Encounter for therapeutic drug level monitoring; Z79.01 Long term (current) use of anticoagulants

== ENCOUNTER → 2017-08-19 | Outpatient (REF) | payer MEDICARE, MEDICAID ==
[2017-08-19 08:45] LABS: INR 2.56
== END ==
LOC: SKLAB7 07:00
PROVIDERS: ATTEND Family Medicine
DX: Z51.81 Encounter for therapeutic drug level monitoring (principal); Z79.01 Long term (current) use of anticoagulants; I48.91 Unspecified atrial fibrillation

== ENCOUNTER → 2017-08-26 | Outpatient (REF) | payer MEDICARE, MEDICAID ==
[2017-08-26 09:03] LABS: BASO # 0.1 10^3/uL (0.0-0.2); EOS # 0.1 10^3/uL (0.0-0.50); EOS % 2.6 % (0.0-3.0); IMMATURE GRANULOCYTE % 0.2 % (0-0); LYMPH # 1.2 10^3/uL (1.5-4.5); LYMPH % 24.5 % (24.0-44.0); MEAN CORPUSCULAR HEMOGLOBIN 31.5 pg (27.0-33.0); MEAN CORPUSCULAR HGB CONC 32.6 g/dl (32.0-36.5); MEAN CORPUSCULAR VOLUME 96.7 fl (80.0-96.0); MONO # 0.3 10^3/uL (0.0-0.8); MONO % 4.9 % (0.0-5.0); NEUTROPHILS # 3.4 10^3/uL (1.8-7.7); NEUTROPHILS % 66.8 % (36.0-66.0); PLATELET COUNT, AUTOMATED 201 10^3/uL (150-450); RED CELL DISTRIBUTION WIDTH 15.1 % (11.5-14.5); WHITE BLOOD COUNT 5.1 10^3/uL (4.0-10.0)
[2017-08-26 09:28] LABS: INR 3.21
== END ==
LOC: SKLAB7 15:15
PROVIDERS: ATTEND Family Medicine
DX: I48.91 Unspecified atrial fibrillation (principal); D64.9 Anemia, unspecified

== ENCOUNTER → 2017-09-09 | Outpatient (REF) | payer MEDICARE, MEDICAID ==
[2017-09-09 09:08] LABS: BASO # 0.1 10^3/uL (0.0-0.2); BASO % 0.9 % (0.0-1.0); EOS # 0.2 10^3/uL (0.0-0.50); EOS % 2.8 % (0.0-3.0); IMMATURE GRANULOCYTE % 0.2 % (0-0); LYMPH # 1.1 10^3/uL (1.5-4.5); LYMPH % 19.5 % (24.0-44.0); MEAN CORPUSCULAR HEMOGLOBIN 31.7 pg (27.0-33.0); MEAN CORPUSCULAR HGB CONC 32.6 g/dl (32.0-36.5); MEAN CORPUSCULAR VOLUME 97.4 fl (80.0-96.0); MONO # 0.3 10^3/uL (0.0-0.8); MONO % 6.1 % (0.0-5.0); NEUTROPHILS # 3.8 10^3/uL (1.8-7.7); NEUTROPHILS % 70.5 % (36.0-66.0); PLATELET COUNT, AUTOMATED 203 10^3/uL (150-450); RED CELL DISTRIBUTION WIDTH 14.7 % (11.5-14.5); WHITE BLOOD COUNT 5.4 10^3/uL (4.0-10.0)
[2017-09-09 09:29] LABS: INR 2.49
== END ==
LOC: SKLAB7 07:00
PROVIDERS: ATTEND Family Medicine
DX: I48.91 Unspecified atrial fibrillation (principal)

== ENCOUNTER → 2017-09-16 | Outpatient (REF) | payer MEDICARE, MEDICAID ==
[2017-09-16 09:12] LABS: INR 3.14
[2017-09-16 09:56] LABS: BILIRUBIN,TOTAL 0.4 MG/DL (0.2-1.0); CALCIUM LEVEL 8.9 MG/DL (8.8-10.2); CREATININE FOR GFR 1.02 MG/DL (0.55-1.02); GLOMERULAR FILTRATION RATE 54.6 (>32); POTASSIUM SERUM 3.9 MEQ/L (3.5-5.1)
== END ==
LOC: SKLAB7 07:00
PROVIDERS: ATTEND Family Medicine
DX: I48.91 Unspecified atrial fibrillation (principal); E03.9 Hypothyroidism, unspecified; I10 Essential (primary) hypertension

== ENCOUNTER → 2017-09-24 | Outpatient (REF) | payer MEDICARE, MEDICAID ==
[2017-09-24 07:27] LABS: BASO # 0.1 10^3/uL (0.0-0.2); BASO % 1.2 % (0.0-1.0); EOS # 0.2 10^3/uL (0.0-0.50); EOS % 2.8 % (0.0-3.0); IMMATURE GRANULOCYTE % 0.4 % (0-0); LYMPH # 1.4 10^3/uL (1.5-4.5); LYMPH % 23.8 % (24.0-44.0); MEAN CORPUSCULAR HEMOGLOBIN 31.5 pg (27.0-33.0); MEAN CORPUSCULAR HGB CONC 32.9 g/dl (32.0-36.5); MEAN CORPUSCULAR VOLUME 95.7 fl (80.0-96.0); MONO # 0.4 10^3/uL (0.0-0.8); MONO % 7.4 % (0.0-5.0); NEUTROPHILS # 3.7 10^3/uL (1.8-7.7); NEUTROPHILS % 64.4 % (36.0-66.0); PLATELET COUNT, AUTOMATED 211 10^3/uL (150-450); RED CELL DISTRIBUTION WIDTH 14.2 % (11.5-14.5); WHITE BLOOD COUNT 5.7 10^3/uL (4.0-10.0)
[2017-09-24 07:41] LABS: INR 2.21
== END ==
LOC: SKLAB7 07:00
PROVIDERS: ATTEND Family Medicine
DX: I48.91 Unspecified atrial fibrillation (principal); D64.9 Anemia, unspecified

== ENCOUNTER → 2017-09-28 | Outpatient (REF) | payer MEDICARE, MEDICAID ==
[2017-09-28 20:32] LABS: MICROSCOPIC INDICATED? MAN YES (NO)
[2017-09-28 21:33] LABS: WBC, URINE TNTC /hpf (0-3)
[2017-09-28 21:36] LABS: BACTERIA, URINE LARGE AMOUNT; SQUAMOUS EPITHELIAL CELL URINE NONE SEEN /hpf (SMALL AMT); TRANSITIONAL EPI CELLS, URINE MOD AMOUNT /hpf; TRIPLE PHOSPHATE CRYSTAL,URINE LARGE AMOUNT /hpf
[2017-09-28 21:37] LABS: HYALINE CAST, URINE NONE SEEN /lpf (0-1); MICROSCOPIC EXAM PERFORMED
== END ==
LOC: SKLAB7 19:54
PROVIDERS: ATTEND Family Medicine
DX: R30.0 Dysuria (principal); R41.0 Disorientation, unspecified

== ENCOUNTER → 2017-09-30 | Outpatient (REF) | payer MEDICARE, MEDICAID ==
[2017-09-30 09:29] LABS: INR 1.87
== END ==
LOC: SKLAB7 08:20
PROVIDERS: ATTEND Family Medicine
DX: Z51.81 Encounter for therapeutic drug level monitoring (principal); Z79.01 Long term (current) use of anticoagulants; I48.91 Unspecified atrial fibrillation

== ENCOUNTER → 2017-10-08 | Outpatient (REF) | payer MEDICARE, MEDICAID ==
[2017-10-08 08:42] LABS: BASO # 0.1 10^3/uL (0.0-0.2); EOS # 0.2 10^3/uL (0.0-0.50); EOS % 3.3 % (0.0-3.0); IMMATURE GRANULOCYTE % 0.3 % (0-0); LYMPH # 1.2 10^3/uL (1.5-4.5); LYMPH % 21.3 % (24.0-44.0); MEAN CORPUSCULAR HEMOGLOBIN 32.4 pg (27.0-33.0); MEAN CORPUSCULAR HGB CONC 33.6 g/dl (32.0-36.5); MEAN CORPUSCULAR VOLUME 96.3 fl (80.0-96.0); MONO # 0.4 10^3/uL (0.0-0.8); MONO % 7.3 % (0.0-5.0); NEUTROPHILS # 3.8 10^3/uL (1.8-7.7); NEUTROPHILS % 66.8 % (36.0-66.0); PLATELET COUNT, AUTOMATED 200 10^3/uL (150-450); RED CELL DISTRIBUTION WIDTH 13.7 % (11.5-14.5); WHITE BLOOD COUNT 5.7 10^3/uL (4.0-10.0)
[2017-10-08 08:55] LABS: INR 2.07
== END ==
LOC: SKLAB7 07:00
PROVIDERS: ATTEND Family Medicine
DX: I48.91 Unspecified atrial fibrillation (principal); D64.9 Anemia, unspecified

== ENCOUNTER → 2017-10-14 | Outpatient (REF) | payer MEDICARE, MEDICAID ==
[2017-10-14 09:04] LABS: INR 1.96
== END ==
LOC: SKLAB7 11:03
PROVIDERS: ATTEND Family Medicine
DX: I48.91 Unspecified atrial fibrillation (principal)

== ENCOUNTER → 2017-10-21 | Outpatient (REF) | payer MEDICARE, MEDICAID ==
[2017-10-21 09:27] LABS: BASO # 0.1 10^3/uL (0.0-0.2); BASO % 1.2 % (0.0-1.0); EOS # 0.2 10^3/uL (0.0-0.50); EOS % 3.2 % (0.0-3.0); IMMATURE GRANULOCYTE % 0.2 % (0-0); LYMPH # 1.3 10^3/uL (1.5-4.5); MEAN CORPUSCULAR HEMOGLOBIN 31.7 pg (27.0-33.0); MEAN CORPUSCULAR HGB CONC 32.8 g/dl (32.0-36.5); MEAN CORPUSCULAR VOLUME 96.7 fl (80.0-96.0); MONO # 0.3 10^3/uL (0.0-0.8); MONO % 4.9 % (0.0-5.0); NEUTROPHILS # 3.9 10^3/uL (1.8-7.7); NEUTROPHILS % 68.5 % (36.0-66.0); PLATELET COUNT, AUTOMATED 225 10^3/uL (150-450); RED CELL DISTRIBUTION WIDTH 13.5 % (11.5-14.5); WHITE BLOOD COUNT 5.7 10^3/uL (4.0-10.0)
[2017-10-21 09:34] LABS: INR 2.04
== END ==
LOC: SKLAB7 07:00
PROVIDERS: ATTEND Family Medicine
DX: I48.91 Unspecified atrial fibrillation (principal); Z79.01 Long term (current) use of anticoagulants

== ENCOUNTER → 2017-10-28 | Outpatient (REF) | payer MEDICARE, MEDICAID ==
[2017-10-28 09:09] LABS: INR 2.42
== END ==
LOC: SKLAB7 13:03
DX: I48.91 Unspecified atrial fibrillation (principal)
CPT/HCPCS: 36415

== ENCOUNTER → 2017-11-02 | Outpatient (REF) | payer MEDICARE, MEDICAID ==
[2017-11-02 16:35] LABS: APPEARANCE, URINE TURBID (CLEAR); BACTERIA, URINE AUTO 3+ (NEGATIVE); BILIRUBIN, URINE AUTO NEGATIVE (NEGATIVE); BLOOD, URINE BLOOD NEGATIVE (NEGATIVE); GLUCOSE, URINE (UA) AUTO NEGATIVE (NEGATIVE); KETONE, URINE AUTO NEGATIVE (NEGATIVE); LEUKOCYTE ESTERASE, URINE AUTO 2+ (NEGATIVE); MUCUS, URINE SMALL (NEGATIVE); NITRITE, URINE AUTO POSITIVE (NEGATIVE); PROTEIN, URINE AUTO 3+ mg/dL (NEGATIVE); RBC, URINE AUTO 5 /HPF (0-3); SPECIFIC GRAVITY URINE AUTO 1.019 (1.002-1.035); SQUAMOUS EPITHELIAL CELL UR AU 0 /HPF (0-6); UROBILINOGEN, URINE AUTO 0.2 mg/dL (0.0-2.0); WBC, URINE AUTO TNTC /HPF (0-3)
[2017-11-02 17:14] LABS: COLOR, URINE YELLOW (YELLOW)
== END ==
LOC: SKLAB7 15:57
DX: R82.99 Other abnormal findings in urine (principal)
CPT/HCPCS: 81001

== ENCOUNTER → 2017-11-04 | Outpatient (REF) | payer MEDICARE, MEDICAID ==
[2017-11-04 08:51] LABS: BASO % 0.5 % (0.0-1.0); EOS # 0.2 10^3/uL (0.0-0.50); EOS % 3.3 % (0.0-3.0); HEMATOCRIT 46.7 % (36.0-47.0); HEMOGLOBIN 15.5 g/dl (12.0-16.0); LYMPH # 1.2 10^3/uL (1.5-4.5); LYMPH % 19.4 % (24.0-44.0); MEAN CORPUSCULAR HEMOGLOBIN 31.8 pg (27.0-33.0); MEAN CORPUSCULAR HGB CONC 33.2 g/dl (32.0-36.5); MEAN CORPUSCULAR VOLUME 95.9 fl (80.0-96.0); MONO # 0.4 10^3/uL (0.0-0.8); MONO % 6.1 % (0.0-5.0); NEUTROPHILS # 4.5 10^3/uL (1.8-7.7); NEUTROPHILS % 70.7 % (36.0-66.0); PLATELET COUNT, AUTOMATED 189 10^3/uL (150-450); RED BLOOD COUNT 4.87 10^6/uL (4.00-5.40); RED CELL DISTRIBUTION WIDTH 13.1 % (11.5-14.5); WHITE BLOOD COUNT 6.4 10^3/uL (4.0-10.0)
[2017-11-04 09:21] LABS: INR 1.81; PROTHROMBIN TIME 21.5 SECONDS (12.4-14.5)
== END ==
LOC: SKLAB7 13:30
DX: D64.9 Anemia, unspecified (principal); I48.91 Unspecified atrial fibrillation
CPT/HCPCS: 36415

== ENCOUNTER 2017-11-10 13:26 | Outpatient (REF) | payer MEDICARE, MEDICAID ==
[2017-11-11 09:57] LABS: INR 1.92; PROTHROMBIN TIME 22.6 SECONDS (12.4-14.5)
== END 2017-11-11 ==
LOC: SKLAB7 13:26
DX: I48.91 Unspecified atrial fibrillation (principal)
CPT/HCPCS: 85610

== ENCOUNTER → 2017-11-18 | Outpatient (REF) | payer MEDICARE, MEDICAID ==
[2017-11-18 10:00] LABS: BASO # 0.1 10^3/uL (0.0-0.2); BASO % 0.9 % (0.0-1.0); EOS # 0.2 10^3/uL (0.0-0.50); EOS % 3.8 % (0.0-3.0); HEMATOCRIT 49.7 % (36.0-47.0); HEMOGLOBIN 16.1 g/dl (12.0-16.0); IMMATURE GRANULOCYTE % 0.2 % (0-0); MEAN CORPUSCULAR HEMOGLOBIN 31.5 pg (27.0-33.0); MEAN CORPUSCULAR HGB CONC 32.4 g/dl (32.0-36.5); MEAN CORPUSCULAR VOLUME 97.3 fl (80.0-96.0); MONO # 0.3 10^3/uL (0.0-0.8); MONO % 4.9 % (0.0-5.0); NEUTROPHILS # 3.8 10^3/uL (1.8-7.7); NEUTROPHILS % 72.2 % (36.0-66.0); PLATELET COUNT, AUTOMATED 211 10^3/uL (150-450); RED BLOOD COUNT 5.11 10^6/uL (4.00-5.40); WHITE BLOOD COUNT 5.3 10^3/uL (4.0-10.0)
[2017-11-18 10:19] LABS: INR 1.94; PROTHROMBIN TIME 22.8 SECONDS (12.4-14.5)
== END ==
LOC: SKLAB7 07:00
DX: I48.91 Unspecified atrial fibrillation (principal)
CPT/HCPCS: 36415

== ENCOUNTER → 2017-11-25 | Outpatient (REF) | payer MEDICARE, MEDICAID ==
[2017-11-25 08:51] LABS: INR 2.53; PROTHROMBIN TIME 28.3 SECONDS (12.4-14.5)
== END ==
LOC: SKLAB7 07:00
DX: I48.91 Unspecified atrial fibrillation (principal)
CPT/HCPCS: 36415

== ENCOUNTER → 2017-12-02 | Outpatient (REF) | payer MEDICARE, MEDICAID ==
[2017-12-02 08:52] LABS: INR 2.54; PROTHROMBIN TIME 28.4 SECONDS (12.4-14.5)
== END ==
LOC: SKLAB7 08:00
DX: I48.91 Unspecified atrial fibrillation (principal)
CPT/HCPCS: 36415

== ENCOUNTER → 2017-12-09 | Outpatient (REF) | payer MEDICARE, MEDICAID ==
[2017-12-09 09:02] LABS: BASO # 0.1 10^3/uL (0.0-0.2); BASO % 0.9 % (0.0-1.0); EOS # 0.2 10^3/uL (0.0-0.50); EOS % 3.8 % (0.0-3.0); HEMATOCRIT 49.8 % (36.0-47.0); HEMOGLOBIN 16.3 g/dl (12.0-16.0); IMMATURE GRANULOCYTE % 0.2 % (0-3.0); LYMPH # 1.1 10^3/uL (1.5-4.5); LYMPH % 19.2 % (24.0-44.0); MEAN CORPUSCULAR HEMOGLOBIN 31.2 pg (27.0-33.0); MEAN CORPUSCULAR HGB CONC 32.7 g/dl (32.0-36.5); MEAN CORPUSCULAR VOLUME 95.2 fl (80.0-96.0); MONO # 0.5 10^3/uL (0.0-0.8); MONO % 8.3 % (0.0-5.0); NEUTROPHILS # 3.7 10^3/uL (1.8-7.7); NEUTROPHILS % 67.6 % (36.0-66.0); PLATELET COUNT, AUTOMATED 214 10^3/uL (150-450); RED BLOOD COUNT 5.23 10^6/uL (4.00-5.40); WHITE BLOOD COUNT 5.5 10^3/uL (4.0-10.0)
[2017-12-09 09:24] LABS: INR 2.59; PROTHROMBIN TIME 28.8 SECONDS (12.4-14.5)
== END ==
LOC: SKLAB7 08:00
DX: Z51.81 Encounter for therapeutic drug level monitoring (principal); Z79.01 Long term (current) use of anticoagulants
CPT/HCPCS: 36415

== ENCOUNTER → 2017-12-16 | Outpatient (REF) | payer MEDICARE, MEDICAID ==
[2017-12-16 09:27] LABS: INR 2.56; PROTHROMBIN TIME 28.6 SECONDS (12.4-14.5)
[2017-12-16 09:43] LABS: CHOLESTEROL LEVEL 131 MG/DL (<200); CHOLESTEROL RISK RATIO 2.147 (<5); HDL CHOLESTEROL 61 MG/DL (>40); LDL CHOLESTEROL 50.2 MG/DL (<100); NON-HDL-C 70 MG/DL; TRIGLYCERIDES LEVEL 99 MG/DL (<150)
[2017-12-16 09:55] LABS: ALBUMIN 3.3 GM/DL (3.2-5.2); ALBUMIN/GLOBULIN RATIO 1.06 (1.00-1.93); ALKALINE PHOSPHATASE 106 U/L (45-117); ALT/SGPT 13 U/L (12-78); ANION GAP 9 MEQ/L (8-16); AST/SGOT 18 U/L (7-37); BILIRUBIN,TOTAL 0.4 MG/DL (0.2-1.0); BLOOD UREA NITROGEN 23 MG/DL (7-18); CALCIUM LEVEL 8.9 MG/DL (8.8-10.2); CARBON DIOXIDE LEVEL 28 MEQ/L (21-32); CHLORIDE LEVEL 108 MEQ/L (98-107); GLOMERULAR FILTRATION RATE > 60.0 (>32); GLUCOSE, FASTING 122 MG/DL (70-100); POTASSIUM SERUM 3.7 MEQ/L (3.5-5.1); SODIUM LEVEL 145 MEQ/L (136-145); TOTAL PROTEIN 6.4 GM/DL (6.4-8.2)
== END ==
LOC: SKLAB7 06:45
DX: I48.91 Unspecified atrial fibrillation (principal); Z79.899 Other long term (current) drug therapy
CPT/HCPCS: 80053

== ENCOUNTER → 2017-12-23 | Outpatient (REF) | payer MEDICARE, MEDICAID ==
[2017-12-23 10:05] LABS: HEMATOCRIT 49.4 % (36.0-47.0); HEMOGLOBIN 16.1 g/dl (12.0-16.0); MEAN CORPUSCULAR HEMOGLOBIN 31.3 pg (27.0-33.0); MEAN CORPUSCULAR HGB CONC 32.6 g/dl (32.0-36.5); MEAN CORPUSCULAR VOLUME 96.1 fl (80.0-96.0); PLATELET COUNT, AUTOMATED 207 10^3/uL (150-450); RED BLOOD COUNT 5.14 10^6/uL (4.00-5.40); RED CELL DISTRIBUTION WIDTH 13.1 % (11.5-14.5)
[2017-12-23 10:20] LABS: INR 2.22; PROTHROMBIN TIME 25.4 SECONDS (12.4-14.5)
== END ==
LOC: SKLAB7 07:00
DX: I48.91 Unspecified atrial fibrillation (principal); D64.9 Anemia, unspecified
CPT/HCPCS: 36415

== ENCOUNTER → 2017-12-30 | Outpatient (REF) | payer MEDICARE, MEDICAID ==
[2017-12-30 08:49] LABS: INR 2.48; PROTHROMBIN TIME 27.8 SECONDS (12.4-14.5)
== END ==
LOC: SKLAB7 08:00
DX: I48.91 Unspecified atrial fibrillation (principal)
CPT/HCPCS: 36415

== ENCOUNTER → 2018-01-20 | Outpatient (REF) | payer MEDICARE, MEDICAID ==
[2018-01-20 08:19] LABS: HEMATOCRIT 48.2 % (36.0-47.0); HEMOGLOBIN 15.6 g/dl (12.0-16.0); MEAN CORPUSCULAR HEMOGLOBIN 31.4 pg (27.0-33.0); MEAN CORPUSCULAR HGB CONC 32.4 g/dl (32.0-36.5); PLATELET COUNT, AUTOMATED 182 10^3/uL (150-450); RED BLOOD COUNT 4.97 10^6/uL (4.00-5.40); RED CELL DISTRIBUTION WIDTH 13.7 % (11.5-14.5); WHITE BLOOD COUNT 5.1 10^3/uL (4.0-10.0)
[2018-01-20 08:35] LABS: INR 2.34; PROTHROMBIN TIME 26.6 SECONDS (12.4-14.5)
== END ==
LOC: SKLAB7 09:49
DX: I48.91 Unspecified atrial fibrillation (principal); D64.9 Anemia, unspecified
CPT/HCPCS: 36415

== ENCOUNTER → 2018-01-27 | Outpatient (REF) | payer MEDICARE, MEDICAID ==
[2018-01-27 09:38] LABS: INR 2.71; PROTHROMBIN TIME 29.9 SECONDS (12.4-14.5)
== END ==
LOC: SKLAB7 08:51
DX: I48.91 Unspecified atrial fibrillation (principal)
CPT/HCPCS: 36415

== ENCOUNTER → 2018-02-10 | Outpatient (REF) | payer MEDICARE, MEDICAID ==
[2018-02-10 08:46] LABS: INR 2.85; PROTHROMBIN TIME 31.2 SECONDS (12.4-14.5)
== END ==
LOC: SKLAB7 08:00
DX: I48.91 Unspecified atrial fibrillation (principal)
CPT/HCPCS: 36415

== ENCOUNTER → 2018-02-17 | Outpatient (REF) | payer MEDICARE, MEDICAID ==
[2018-02-17 08:37] LABS: BASO # 0.1 10^3/uL (0.0-0.2); EOS # 0.2 10^3/uL (0.0-0.50); EOS % 4.7 % (0.0-3.0); HEMATOCRIT 45.9 % (36.0-47.0); IMMATURE GRANULOCYTE % 0.2 % (0-3.0); LYMPH # 1.1 10^3/uL (1.5-4.5); LYMPH % 23.1 % (24.0-44.0); MEAN CORPUSCULAR HEMOGLOBIN 31.5 pg (27.0-33.0); MEAN CORPUSCULAR HGB CONC 32.7 g/dl (32.0-36.5); MEAN CORPUSCULAR VOLUME 96.4 fl (80.0-96.0); MONO # 0.3 10^3/uL (0.0-0.8); MONO % 6.7 % (0.0-5.0); NEUTROPHILS # 3.2 10^3/uL (1.8-7.7); NEUTROPHILS % 64.3 % (36.0-66.0); PLATELET COUNT, AUTOMATED 170 10^3/uL (150-450); RED BLOOD COUNT 4.76 10^6/uL (4.00-5.40); RED CELL DISTRIBUTION WIDTH 13.7 % (11.5-14.5); WHITE BLOOD COUNT 4.9 10^3/uL (4.0-10.0)
[2018-02-17 08:47] LABS: INR 2.63; PROTHROMBIN TIME 29.2 SECONDS (12.4-14.5)
== END ==
LOC: SKLAB7 11:46
DX: I48.91 Unspecified atrial fibrillation (principal); D64.9 Anemia, unspecified
CPT/HCPCS: 36415

== ENCOUNTER → 2018-02-24 | Outpatient (REF) | payer MEDICARE, MEDICAID ==
[2018-02-24 08:37] LABS: INR 2.26; PROTHROMBIN TIME 25.8 SECONDS (12.4-14.5)
== END ==
LOC: SKLAB7 08:00
DX: I48.91 Unspecified atrial fibrillation (principal)
CPT/HCPCS: 36415

== ENCOUNTER → 2018-03-03 | Outpatient (REF) | payer MEDICARE, MEDICAID ==
[2018-03-03 07:37] LABS: BASO # 0.1 10^3/uL (0.0-0.2); BASO % 1.2 % (0.0-1.0); EOS # 0.3 10^3/uL (0.0-0.50); EOS % 5.1 % (0.0-3.0); HEMATOCRIT 44.8 % (36.0-47.0); HEMOGLOBIN 14.3 g/dl (12.0-15.5); IMMATURE GRANULOCYTE % 0.2 % (0-3.0); LYMPH # 1.2 10^3/uL (1.5-4.5); LYMPH % 23.9 % (24.0-44.0); MEAN CORPUSCULAR HEMOGLOBIN 31.1 pg (27.0-33.0); MEAN CORPUSCULAR HGB CONC 31.9 g/dl (32.0-36.5); MEAN CORPUSCULAR VOLUME 97.4 fl (80.0-96.0); MONO # 0.4 10^3/uL (0.0-0.8); MONO % 7.1 % (0.0-5.0); NEUTROPHILS # 3.2 10^3/uL (1.8-7.7); NEUTROPHILS % 62.5 % (36.0-66.0); PLATELET COUNT, AUTOMATED 181 10^3/uL (150-450); RED CELL DISTRIBUTION WIDTH 13.7 % (11.5-14.5); WHITE BLOOD COUNT 5.1 10^3/uL (4.0-10.0)
[2018-03-03 07:49] LABS: PROTHROMBIN TIME 27.1 SECONDS (12.4-14.5)
== END ==
LOC: SKLAB7 07:00
DX: I48.91 Unspecified atrial fibrillation (principal); D64.9 Anemia, unspecified
CPT/HCPCS: 36415

== ENCOUNTER → 2018-03-10 | Outpatient (REF) | payer MEDICARE, MEDICAID ==
[2018-03-10 08:37] LABS: INR 2.12; PROTHROMBIN TIME 24.5 SECONDS (12.4-14.5)
== END ==
LOC: SKLAB7 07:00
DX: I48.91 Unspecified atrial fibrillation (principal)
CPT/HCPCS: 36415

== ENCOUNTER → 2018-03-17 | Outpatient (REF) | payer MEDICARE, MEDICAID ==
[2018-03-17 08:52] LABS: INR 2.88; PROTHROMBIN TIME 31.5 SECONDS (12.4-14.5)
[2018-03-17 09:20] LABS: ALBUMIN/GLOBULIN RATIO 0.86 (1.00-1.93); ALKALINE PHOSPHATASE 96 U/L (45-117); ALT/SGPT 9 U/L (12-78); ANION GAP 7 MEQ/L (8-16); AST/SGOT 20 U/L (7-37); BILIRUBIN,TOTAL 0.4 MG/DL (0.2-1.0); BLOOD UREA NITROGEN 23 MG/DL (7-18); CALCIUM LEVEL 8.4 MG/DL (8.8-10.2); CARBON DIOXIDE LEVEL 27 MEQ/L (21-32); CHLORIDE LEVEL 113 MEQ/L (98-107); GLOMERULAR FILTRATION RATE > 60.0 (>32); GLUCOSE, FASTING 133 MG/DL (70-100); POTASSIUM SERUM 3.9 MEQ/L (3.5-5.1); SODIUM LEVEL 147 MEQ/L (136-145); THYROID STIMULATING HORMONE 0.494 uIU/ML (0.358-3.740); TOTAL PROTEIN 6.5 GM/DL (6.4-8.2)
== END ==
LOC: SKLAB7 07:13
DX: I48.91 Unspecified atrial fibrillation (principal)
CPT/HCPCS: 84443

== ENCOUNTER → 2018-03-24 | Outpatient (REF) | payer MEDICARE, MEDICAID ==
[2018-03-24 09:15] LABS: INR 2.61
== END ==
LOC: SKLAB7 07:00
DX: Z79.01 Long term (current) use of anticoagulants (principal); I48.91 Unspecified atrial fibrillation
CPT/HCPCS: 36415

== ENCOUNTER → 2018-03-31 | Outpatient (REF) | payer MEDICARE, MEDICAID ==
[2018-03-31 08:07] LABS: INR 2.68; PROTHROMBIN TIME 29.6 SECONDS (12.4-14.5)
== END ==
LOC: SKLAB7 07:01
DX: Z79.01 Long term (current) use of anticoagulants (principal); I48.91 Unspecified atrial fibrillation
CPT/HCPCS: 36415

== ENCOUNTER → 2018-04-07 | Outpatient (REF) | payer MEDICARE, MEDICAID ==
[2018-04-07 08:11] LABS: INR 2.65; PROTHROMBIN TIME 29.4 SECONDS (12.4-14.5)
== END ==
LOC: SKLAB7 07:00
DX: I48.91 Unspecified atrial fibrillation (principal)
CPT/HCPCS: 36415

== ENCOUNTER → 2018-04-28 | Outpatient (REF) | payer MEDICARE, MEDICAID ==
[2018-04-28 08:09] LABS: INR 2.51; PROTHROMBIN TIME 27.6 SECONDS (12.1-14.4)
== END ==
LOC: SKLAB7 08:47
DX: I48.91 Unspecified atrial fibrillation (principal)
CPT/HCPCS: 36415

== ENCOUNTER → 2018-05-05 | Outpatient (REF) | payer MEDICARE, MEDICAID ==
[2018-05-05 09:16] LABS: INR 2.28; PROTHROMBIN TIME 25.6 SECONDS (12.1-14.4)
== END ==
LOC: SKLAB7 07:00
DX: I48.91 Unspecified atrial fibrillation (principal)
CPT/HCPCS: 36415

== ENCOUNTER → 2018-05-19 | Outpatient (REF) | payer MEDICARE, MEDICAID ==
[2018-05-19 09:11] LABS: INR 2.23; PROTHROMBIN TIME 25.1 SECONDS (12.1-14.4)
== END ==
LOC: SKLAB7 08:00
DX: Z79.01 Long term (current) use of anticoagulants (principal); I48.91 Unspecified atrial fibrillation
CPT/HCPCS: 36415

== ENCOUNTER → 2018-05-26 | Outpatient (REF) | payer MEDICARE, MEDICAID ==
[2018-05-26 08:44] LABS: INR 2.26; PROTHROMBIN TIME 25.4 SECONDS (12.1-14.4)
== END ==
LOC: SKLAB7 14:14
DX: Z79.01 Long term (current) use of anticoagulants (principal)
CPT/HCPCS: 85610

== ENCOUNTER → 2018-06-02 | Outpatient (REF) | payer MEDICARE, MEDICAID ==
[2018-06-02 08:17] LABS: INR 2.02; PROTHROMBIN TIME 23.2 SECONDS (12.1-14.4)
== END ==
LOC: SKLAB7 08:00
DX: I48.91 Unspecified atrial fibrillation (principal)
CPT/HCPCS: 36415

== ENCOUNTER → 2018-06-09 | Outpatient (REF) | payer MEDICARE, MEDICAID ==
[2018-06-09 09:38] LABS: INR 2.32; PROTHROMBIN TIME 25.9 SECONDS (12.1-14.4)
== END ==
LOC: SKLAB7 14:16
DX: I48.91 Unspecified atrial fibrillation (principal); M25.432 Effusion, left wrist
CPT/HCPCS: 73110

== ENCOUNTER → 2018-06-16 | Outpatient (REF) | payer MEDICARE, MEDICAID ==
[2018-06-16 09:05] LABS: BASO # 0.1 10^3/uL (0.0-0.2); BASO % 0.8 % (0.0-1.0); EOS # 0.2 10^3/uL (0.0-0.50); EOS % 3.2 % (0.0-3.0); HEMATOCRIT 47.1 % (36.0-47.0); HEMOGLOBIN 15.1 g/dl (12.0-15.5); IMMATURE GRANULOCYTE % 0.3 % (0-3.0); LYMPH # 1.5 10^3/uL (1.5-4.5); LYMPH % 24.5 % (24.0-44.0); MEAN CORPUSCULAR HEMOGLOBIN 30.9 pg (27.0-33.0); MEAN CORPUSCULAR HGB CONC 32.1 g/dl (32.0-36.5); MEAN CORPUSCULAR VOLUME 96.5 fl (80.0-96.0); MONO # 0.5 10^3/uL (0.0-0.8); MONO % 7.3 % (0.0-5.0); NEUTROPHILS % 63.9 % (36.0-66.0); PLATELET COUNT, AUTOMATED 212 10^3/uL (150-450); RED BLOOD COUNT 4.88 10^6/uL (4.00-5.40); RED CELL DISTRIBUTION WIDTH 14.3 % (11.5-14.5); WHITE BLOOD COUNT 6.3 10^3/uL (4.0-10.0)
[2018-06-16 09:19] LABS: ALBUMIN/GLOBULIN RATIO 0.73 (1.00-1.93); ALKALINE PHOSPHATASE 93 U/L (45-117); ALT/SGPT 16 U/L (12-78); ANION GAP 6 MEQ/L (8-16); AST/SGOT 19 U/L (7-37); BILIRUBIN,TOTAL 0.5 MG/DL (0.2-1.0); BLOOD UREA NITROGEN 24 MG/DL (7-18); CALCIUM LEVEL 8.5 MG/DL (8.8-10.2); CARBON DIOXIDE LEVEL 31 MEQ/L (21-32); CHLORIDE LEVEL 107 MEQ/L (98-107); CHOLESTEROL LEVEL 136 MG/DL (<200); CHOLESTEROL RISK RATIO 2.029 (<5); CREATININE FOR GFR 0.96 MG/DL (0.55-1.30); GLOMERULAR FILTRATION RATE 58.4 (>32); GLUCOSE, FASTING 99 MG/DL (70-100); HDL CHOLESTEROL 67 MG/DL (>40); LDL CHOLESTEROL 48.6 MG/DL (<100); NON-HDL-C 69 MG/DL; POTASSIUM SERUM 3.9 MEQ/L (3.5-5.1); SODIUM LEVEL 144 MEQ/L (136-145); TOTAL PROTEIN 7.1 GM/DL (6.4-8.2); TRIGLYCERIDES LEVEL 102 MG/DL (<150)
[2018-06-16 09:35] LABS: INR 2.33
== END ==
LOC: SKLAB7 08:00
DX: I48.91 Unspecified atrial fibrillation (principal); Z79.899 Other long term (current) drug therapy
CPT/HCPCS: 80053

== ENCOUNTER → 2018-06-23 | Outpatient (REF) | payer MEDICARE, MEDICAID ==
[2018-06-23 11:58] LABS: INR 1.84; PROTHROMBIN TIME 21.6 SECONDS (12.1-14.4)
== END ==
LOC: SKLAB7 08:00
DX: I48.91 Unspecified atrial fibrillation (principal)
CPT/HCPCS: 36415

== ENCOUNTER → 2018-06-30 | Outpatient (REF) | payer MEDICARE, MEDICAID ==
[2018-06-30 09:29] LABS: INR 3.41; PROTHROMBIN TIME 35.2 SECONDS (12.1-14.4)
== END ==
LOC: SKLAB7 12:45
DX: I48.91 Unspecified atrial fibrillation (principal)
CPT/HCPCS: 85610

== ENCOUNTER → 2018-07-07 | Outpatient (REF) | payer MEDICARE, MEDICAID ==
[2018-07-07 08:37] LABS: INR 1.39; PROTHROMBIN TIME 17.3 SECONDS (12.1-14.4)
== END ==
LOC: SKLAB7 08:51
DX: I48.91 Unspecified atrial fibrillation (principal)
CPT/HCPCS: 36415

== ENCOUNTER → 2018-07-14 | Outpatient (REF) | payer MEDICARE, MEDICAID ==
[2018-07-14 10:58] LABS: INR 1.69; PROTHROMBIN TIME 20.2 SECONDS (12.1-14.4)
== END ==
LOC: SKLAB7 07:00
DX: I48.91 Unspecified atrial fibrillation (principal)
CPT/HCPCS: 36415

== ENCOUNTER → 2018-07-21 | Outpatient (REF) | payer MEDICARE, MEDICAID ==
[2018-07-21 09:48] LABS: INR 2.18; PROTHROMBIN TIME 24.7 SECONDS (12.1-14.4)
== END ==
LOC: SKLAB7 12:51
DX: I48.91 Unspecified atrial fibrillation (principal)
CPT/HCPCS: 36415

== ENCOUNTER → 2018-07-28 | Outpatient (REF) | payer MEDICARE, MEDICAID ==
[2018-07-28 09:21] LABS: INR 2.94; PROTHROMBIN TIME 31.3 SECONDS (12.1-14.4)
== END ==
LOC: SKLAB7 07:00
DX: I48.91 Unspecified atrial fibrillation (principal)
CPT/HCPCS: 36415

== ENCOUNTER → 2018-08-02 | Outpatient (REF) | payer MEDICARE, MEDICAID ==
[2018-08-02 11:01] LABS: BASO % 0.8 % (0.0-1.0); EOS # 0.3 10^3/uL (0.0-0.50); EOS % 5.2 % (0.0-3.0); HEMATOCRIT 37.5 % (36.0-47.0); IMMATURE GRANULOCYTE % 0.4 % (0-3.0); LYMPH # 0.9 10^3/uL (1.5-4.5); MEAN CORPUSCULAR HEMOGLOBIN 30.5 pg (27.0-33.0); MEAN CORPUSCULAR VOLUME 95.4 fl (80.0-96.0); MONO # 0.3 10^3/uL (0.0-0.8); MONO % 6.6 % (0.0-5.0); NEUTROPHILS # 3.4 10^3/uL (1.8-7.7); PLATELET COUNT, AUTOMATED 208 10^3/uL (150-450); RED BLOOD COUNT 3.93 10^6/uL (4.00-5.40); RED CELL DISTRIBUTION WIDTH 14.1 % (11.5-14.5)
[2018-08-02 11:13] LABS: INR 2.84; PROTHROMBIN TIME 30.4 SECONDS (12.1-14.4)
[2018-08-02 11:24] LABS: ANION GAP 8 MEQ/L (8-16); BLOOD UREA NITROGEN 21 MG/DL (7-18); CALCIUM LEVEL 8.1 MG/DL (8.8-10.2); CARBON DIOXIDE LEVEL 27 MEQ/L (21-32); CHLORIDE LEVEL 110 MEQ/L (98-107); CREATININE FOR GFR 0.83 MG/DL (0.55-1.30); GLOMERULAR FILTRATION RATE > 60.0 (>32); GLUCOSE, FASTING 114 MG/DL (70-100); SODIUM LEVEL 145 MEQ/L (136-145)
== END ==
LOC: SKLAB7 10:12
DX: I48.91 Unspecified atrial fibrillation (principal)
CPT/HCPCS: 36415

== ENCOUNTER → 2018-08-03 | Outpatient (REF) | payer MEDICARE, MEDICAID ==
[2018-08-03 07:19] LABS: HEMOGLOBIN 11.4 g/dl (12.0-15.5); MEAN CORPUSCULAR HEMOGLOBIN 29.9 pg (27.0-33.0); MEAN CORPUSCULAR HGB CONC 30.8 g/dl (32.0-36.5); MEAN CORPUSCULAR VOLUME 97.1 fl (80.0-96.0); PLATELET COUNT, AUTOMATED 195 10^3/uL (150-450); RED BLOOD COUNT 3.81 10^6/uL (4.00-5.40); RED CELL DISTRIBUTION WIDTH 14.2 % (11.5-14.5); WHITE BLOOD COUNT 5.1 10^3/uL (4.0-10.0)
== END ==
LOC: SKLAB7 08:00
DX: Z79.899 Other long term (current) drug therapy (principal)
CPT/HCPCS: 36415

== ENCOUNTER 2018-08-04 23:52 | Outpatient (CLI) | payer MEDICARE, MEDICAID | END 2018-08-05 | LOC: SKLAB7 23:52 | DX: K62.5 Hemorrhage of anus and rectum (principal); D64.9 Anemia, unspecified; Z79.01 Long term (current) use of anticoagulants | CPT/HCPCS: 82270 ==

== ENCOUNTER → 2018-08-04 | Outpatient (REF) | payer MEDICARE, MEDICAID ==
[2018-08-04 09:22] LABS: HEMATOCRIT 39.9 % (36.0-47.0); HEMOGLOBIN 12.4 g/dl (12.0-15.5); MEAN CORPUSCULAR HEMOGLOBIN 30.4 pg (27.0-33.0); MEAN CORPUSCULAR HGB CONC 31.1 g/dl (32.0-36.5); MEAN CORPUSCULAR VOLUME 97.8 fl (80.0-96.0); PLATELET COUNT, AUTOMATED 215 10^3/uL (150-450); RED BLOOD COUNT 4.08 10^6/uL (4.00-5.40); RED CELL DISTRIBUTION WIDTH 14.4 % (11.5-14.5)
[2018-08-04 09:31] LABS: INR 1.88; PROTHROMBIN TIME 21.9 SECONDS (12.1-14.4)
== END ==
LOC: SKLAB7 08:00
DX: I48.91 Unspecified atrial fibrillation (principal)
CPT/HCPCS: 85610

== ENCOUNTER 2018-08-07 22:59 | Outpatient (CLI) | payer MEDICARE, MEDICAID | END 2018-08-08 | LOC: SKLAB8 22:59 | DX: N31.9 Neuromuscular dysfunction of bladder, unspecified (principal) | CPT/HCPCS: 82270 ==

== ENCOUNTER → 2018-08-09 | Outpatient (REF) | payer MEDICARE, MEDICAID | LOC: SKLAB7 13:48 | DX: R19.5 Other fecal abnormalities (principal) | CPT/HCPCS: 82270 ==

== ENCOUNTER → 2018-09-01 | Outpatient (REF) | payer MEDICARE, MEDICAID ==
[2018-09-01 08:31] LABS: PROTHROMBIN TIME 13.3 SECONDS (12.1-14.4)
== END ==
LOC: SKLAB7 11:15
DX: I48.91 Unspecified atrial fibrillation (principal)
CPT/HCPCS: 85610

== ENCOUNTER → 2018-09-08 | Outpatient (REF) | payer MEDICARE, MEDICAID ==
[2018-09-08 19:48] LABS: HEMATOCRIT 30.4 % (36.0-47.0); HEMOGLOBIN 9.4 g/dl (12.0-15.5); MEAN CORPUSCULAR HEMOGLOBIN 28.3 pg (27.0-33.0); MEAN CORPUSCULAR HGB CONC 30.9 g/dl (32.0-36.5); MEAN CORPUSCULAR VOLUME 91.6 fl (80.0-96.0); PLATELET COUNT, AUTOMATED 263 10^3/uL (150-450); RED BLOOD COUNT 3.32 10^6/uL (4.00-5.40); RED CELL DISTRIBUTION WIDTH 14.4 % (11.5-14.5); WHITE BLOOD COUNT 6.1 10^3/uL (4.0-10.0)
== END ==
LOC: SKLAB7 19:13
DX: K92.1 Melena (principal)
CPT/HCPCS: 85027

== ENCOUNTER → 2018-09-09 | Outpatient (REF) | payer MEDICARE, MEDICAID | LOC: SKLAB7 09:59 | DX: K92.1 Melena (principal) | CPT/HCPCS: 82270 ==

== ENCOUNTER → 2018-09-11 | Outpatient (REF) | payer MEDICARE, MEDICAID ==
[2018-09-11 07:04] LABS: HEMATOCRIT 32.6 % (36.0-47.0); MEAN CORPUSCULAR HEMOGLOBIN 28.2 pg (27.0-33.0); MEAN CORPUSCULAR HGB CONC 30.7 g/dl (32.0-36.5); MEAN CORPUSCULAR VOLUME 92.1 fl (80.0-96.0); PLATELET COUNT, AUTOMATED 237 10^3/uL (150-450); RED BLOOD COUNT 3.54 10^6/uL (4.00-5.40); RED CELL DISTRIBUTION WIDTH 14.3 % (11.5-14.5); WHITE BLOOD COUNT 6.8 10^3/uL (4.0-10.0)
== END ==
LOC: SKLAB7 07:00
DX: R19.5 Other fecal abnormalities (principal)
CPT/HCPCS: 85027

== ENCOUNTER → 2018-09-13 | Outpatient (REF) | payer MEDICARE, MEDICAID | LOC: SKLAB7 09:20 | DX: R19.5 Other fecal abnormalities (principal) | CPT/HCPCS: 82270 ==

== ENCOUNTER 2018-09-16 16:36 | Inpatient (IN) | payer MEDICARE, MEDICAID ==
[2018-09-16 16:17] LABS: BASO # 0.1 10^3/uL (0.0-0.2); EOS # 0.3 10^3/uL (0.0-0.50); EOS % 4.6 % (0.0-3.0); HEMATOCRIT 33.1 % (36.0-47.0); HEMOGLOBIN 9.9 g/dl (12.0-15.5); IMMATURE GRANULOCYTE % 0.3 % (0-3.0); LYMPH # 0.9 10^3/uL (1.5-4.5); LYMPH % 14.1 % (24.0-44.0); MEAN CORPUSCULAR HEMOGLOBIN 27.5 pg (27.0-33.0); MEAN CORPUSCULAR HGB CONC 29.9 g/dl (32.0-36.5); MEAN CORPUSCULAR VOLUME 91.9 fl (80.0-96.0); MONO # 0.4 10^3/uL (0.0-0.8); MONO % 6.7 % (0.0-5.0); NEUTROPHILS # 4.6 10^3/uL (1.8-7.7); NEUTROPHILS % 73.3 % (36.0-66.0); PLATELET COUNT, AUTOMATED 238 10^3/uL (150-450); RED CELL DISTRIBUTION WIDTH 14.7 % (11.5-14.5); WHITE BLOOD COUNT 6.3 10^3/uL (4.0-10.0)
[2018-09-16 16:45] LABS: ANION GAP 7 MEQ/L (8-16); BLOOD UREA NITROGEN 30 MG/DL (7-18); CALCIUM LEVEL 8.4 MG/DL (8.8-10.2); CARBON DIOXIDE LEVEL 27 MEQ/L (21-32); CHLORIDE LEVEL 112 MEQ/L (98-107); CK-MB VALUE MASS < 1.0 NG/ML (<3.6); CPK CREATINE PHOSPHOKINASE 37 U/L (26-192); GLOMERULAR FILTRATION RATE 55.7 (>32); GLUCOSE, FASTING 110 MG/DL (70-100); NT-PRO BNP 259 PG/ML (<450); POTASSIUM SERUM 3.9 MEQ/L (3.5-5.1); SODIUM LEVEL 146 MEQ/L (136-145); TROPONIN I 0.05 NG/ML (< 0.10)
[2018-09-16] MEDS ORDERED: ISOVUE-370 76% 100ML VIAL (Q9967) As Ordered (17:02)
[2018-09-16 17:17] LABS: INR 1.01; PROTHROMBIN TIME 13.4 SECONDS (12.1-14.4)
[2018-09-16 17:18] LABS: PARTIAL THROMBOPLASTIN TIME 29.8 SECONDS (25.4-37.6)
[2018-09-16] MEDS: NS 1,000 ML IV (19:31)
[2018-09-16] MEDS ORDERED: MOM 30ML SUSPENSION UDC PO (19:45)
[2018-09-16] MEDS ORDERED: ACETAMINOPHEN TAB 650MG DOSE (2X325MG) PO (19:45)
[2018-09-16] MEDS ORDERED: ONDANSETRON 4MG/2ML VIAL (J2405) IV (19:45)
[2018-09-16] MEDS ORDERED: BISACODYL 10 MG SUPP PR (19:45)
[2018-09-16 22:06] LABS: HEMATOCRIT 30.3 % (36.0-47.0); HEMOGLOBIN 9.2 g/dl (12.0-15.5)
[2018-09-16] MEDS: PANTOPRAZOLE 40MG INJ (PROTONIX) (C9113) IV (22:11)
[2018-09-16] MEDS: OLANZapine 2.5MG TABLET PO (22:12)
[2018-09-16] MEDS: ATORVASTATIN 20 MG TAB PO (22:12)
[2018-09-17] MEDS: PANTOPRAZOLE 40MG INJ (PROTONIX) (C9113) IV ×2 (08:37→21:37)
[2018-09-17] MEDS: NS 1,000 ML IV ×2 (08:38→15:39)
[2018-09-17] MEDS: ESCITALOPRAM OXALATE 10 MG TAB (LEXAPRO) PO ×2 (08:42→15:38)
[2018-09-17] MEDS: POTASSIUM CHLORIDE 10 MEQ SR TABLET PO ×2 (08:43→15:38)
[2018-09-17] MEDS: FAMOTIDINE 20 MG TAB PO ×2 (08:43→15:37)
[2018-09-17 09:37] LABS: HEMATOCRIT 30.6 % (36.0-47.0); HEMOGLOBIN 9.1 g/dl (12.0-15.5)
[2018-09-17] MEDS: LEVOTHYROXINE 75MCG TABLET (0.075MG) PO (11:00)
[2018-09-17 11:44] LABS: ANION GAP 8 MEQ/L (8-16); BLOOD UREA NITROGEN 24 MG/DL (7-18); CALCIUM LEVEL 8.5 MG/DL (8.8-10.2); CARBON DIOXIDE LEVEL 26 MEQ/L (21-32); CHLORIDE LEVEL 113 MEQ/L (98-107); CREATININE FOR GFR 0.92 MG/DL (0.55-1.30); GLOMERULAR FILTRATION RATE > 60.0 (>32); GLUCOSE, FASTING 96 MG/DL (70-100); SODIUM LEVEL 147 MEQ/L (136-145)
[2018-09-17] MEDS: LIDOCAINE 2% MDV 20 ML VIAL SC (14:10)
[2018-09-17] MEDS ORDERED: PROPOFOL 200 MG/20 ML VIAL As Ordered (14:12)
[2018-09-17] MEDS ORDERED: KETAMINE HCL 200 MG/20 ML VIAL As Ordered (14:12)
[2018-09-17] MEDS ORDERED: MIDAZOLAM INJ 2 MG/2 ML VIAL (J2250) As Ordered (14:12)
[2018-09-17] MEDS: GOLYTELY SOLN 4000 ML BTL PO (15:20)
[2018-09-17 18:33] LABS: HEMATOCRIT 30.4 % (36.0-47.0); HEMOGLOBIN 8.9 g/dl (12.0-15.5)
[2018-09-17] MEDS: OLANZapine 2.5MG TABLET PO (21:37)
[2018-09-17] MEDS: ATORVASTATIN 20 MG TAB PO (21:37)
[2018-09-17 22:34] LABS: HEMATOCRIT 29.3 % (36.0-47.0); HEMOGLOBIN 8.6 g/dl (12.0-15.5)
[2018-09-18] MEDS: NS 1,000 ML IV ×3 (02:49→23:20)
[2018-09-18 04:55] LABS: HEMATOCRIT 29.6 % (36.0-47.0); HEMOGLOBIN 8.7 g/dl (12.0-15.5)
[2018-09-18 05:17] LABS: ANION GAP 4 MEQ/L (8-16); BLOOD UREA NITROGEN 18 MG/DL (7-18); CALCIUM LEVEL 7.9 MG/DL (8.8-10.2); CARBON DIOXIDE LEVEL 29 MEQ/L (21-32); CHLORIDE LEVEL 113 MEQ/L (98-107); CREATININE FOR GFR 0.92 MG/DL (0.55-1.30); GLOMERULAR FILTRATION RATE > 60.0 (>32); GLUCOSE, FASTING 91 MG/DL (70-100); POTASSIUM SERUM 3.8 MEQ/L (3.5-5.1); SODIUM LEVEL 146 MEQ/L (136-145)
[2018-09-18] MEDS: PANTOPRAZOLE 40MG INJ (PROTONIX) (C9113) IV ×2 (09:09→21:22)
[2018-09-18] MEDS: POTASSIUM CHLORIDE 10 MEQ SR TABLET PO (09:10)
[2018-09-18] MEDS: FAMOTIDINE 20 MG TAB PO (09:10)
[2018-09-18] MEDS: ESCITALOPRAM OXALATE 10 MG TAB (LEXAPRO) PO (09:11)
[2018-09-18] MEDS: LEVOTHYROXINE 75MCG TABLET (0.075MG) PO (12:53)
[2018-09-18 13:30] LABS: HEMATOCRIT 29.7 % (36.0-47.0); HEMOGLOBIN 8.7 g/dl (12.0-15.5)
[2018-09-18] MEDS: GOLYTELY SOLN 4000 ML BTL NG (21:21)
[2018-09-18] MEDS: OLANZapine 2.5MG TABLET PO (21:22)
[2018-09-19] MEDS ORDERED: SLF 3 ML SYR IV (02:45)
[2018-09-19 04:40] LABS: HEMATOCRIT 27.7 % (36.0-47.0); HEMOGLOBIN 8.3 g/dl (12.0-15.5); MEAN CORPUSCULAR HEMOGLOBIN 26.8 pg (27.0-33.0); MEAN CORPUSCULAR VOLUME 89.4 fl (80.0-96.0); PLATELET COUNT, AUTOMATED 214 10^3/uL (150-450); RED CELL DISTRIBUTION WIDTH 14.5 % (11.5-14.5); WHITE BLOOD COUNT 6.4 10^3/uL (4.0-10.0)
[2018-09-19 04:54] LABS: ANION GAP 9 MEQ/L (8-16); BLOOD UREA NITROGEN 13 MG/DL (7-18); CALCIUM LEVEL 8.1 MG/DL (8.8-10.2); CARBON DIOXIDE LEVEL 25 MEQ/L (21-32); CHLORIDE LEVEL 112 MEQ/L (98-107); CREATININE FOR GFR 0.86 MG/DL (0.55-1.30); GLOMERULAR FILTRATION RATE > 60.0 (>32); GLUCOSE, FASTING 88 MG/DL (70-100); POTASSIUM SERUM 3.5 MEQ/L (3.5-5.1); SODIUM LEVEL 146 MEQ/L (136-145)
[2018-09-19] MEDS: SLF 3 ML SYR IV ×3 (05:02→21:00)
[2018-09-19] MEDS: ESCITALOPRAM OXALATE 10 MG TAB (LEXAPRO) PO (09:00)
[2018-09-19] MEDS: POTASSIUM CHLORIDE 10 MEQ SR TABLET PO (09:00)
[2018-09-19] MEDS: FAMOTIDINE 20 MG TAB PO (09:00)
[2018-09-19] MEDS: PANTOPRAZOLE 40MG INJ (PROTONIX) (C9113) IV ×2 (09:24→20:16)
[2018-09-19] MEDS: NS 1,000 ML IV (09:25)
[2018-09-19] MEDS: LEVOTHYROXINE 75MCG TABLET (0.075MG) PO (10:32)
[2018-09-19] MEDS ORDERED: PROPOFOL 200 MG/20 ML VIAL As Ordered (14:55)
[2018-09-19] MEDS ORDERED: LIDOCAINE 2% INJ 100 MG/5 ML SDV (FOR ANES.) As Ordered (14:55)
[2018-09-19] MEDS: WARFARIN SOD 5 MG TAB PO (17:13)
[2018-09-19] MEDS: ATORVASTATIN 20 MG TAB PO (20:16)
[2018-09-19] MEDS: OLANZapine 2.5MG TABLET PO (20:16)
[2018-09-20] MEDS: SLF 3 ML SYR IV ×3 (05:04→20:24)
[2018-09-20 05:44] LABS: BASO % 0.8 % (0.0-1.0); EOS # 0.3 10^3/uL (0.0-0.50); EOS % 6.4 % (0.0-3.0); HEMOGLOBIN 8.6 g/dl (12.0-15.5); IMMATURE GRANULOCYTE % 0.4 % (0-3.0); LYMPH % 17.9 % (24.0-44.0); MEAN CORPUSCULAR HEMOGLOBIN 26.5 pg (27.0-33.0); MEAN CORPUSCULAR HGB CONC 29.7 g/dl (32.0-36.5); MEAN CORPUSCULAR VOLUME 89.2 fl (80.0-96.0); MONO # 0.4 10^3/uL (0.0-0.8); MONO % 8.3 % (0.0-5.0); NEUTROPHILS # 3.5 10^3/uL (1.8-7.7); NEUTROPHILS % 66.2 % (36.0-66.0); PLATELET COUNT, AUTOMATED 226 10^3/uL (150-450); RED BLOOD COUNT 3.25 10^6/uL (4.00-5.40); RED CELL DISTRIBUTION WIDTH 14.6 % (11.5-14.5); WHITE BLOOD COUNT 5.3 10^3/uL (4.0-10.0)
[2018-09-20 05:56] LABS: INR 1.11; PROTHROMBIN TIME 14.4 SECONDS (12.1-14.4)
[2018-09-20 05:57] LABS: PARTIAL THROMBOPLASTIN TIME 32.4 SECONDS (25.4-37.6)
[2018-09-20 06:13] LABS: ANION GAP 7 MEQ/L (8-16); BLOOD UREA NITROGEN 10 MG/DL (7-18); CALCIUM LEVEL 8.1 MG/DL (8.8-10.2); CARBON DIOXIDE LEVEL 25 MEQ/L (21-32); CHLORIDE LEVEL 110 MEQ/L (98-107); CREATININE FOR GFR 0.83 MG/DL (0.55-1.30); GLOMERULAR FILTRATION RATE > 60.0 (>32); GLUCOSE, FASTING 84 MG/DL (70-100); POTASSIUM SERUM 3.3 MEQ/L (3.5-5.1); SODIUM LEVEL 142 MEQ/L (136-145)
[2018-09-20] MEDS: PANTOPRAZOLE 40MG INJ (PROTONIX) (C9113) IV ×2 (09:28→20:22)
[2018-09-20] MEDS: POTASSIUM CHLORIDE 10 MEQ SR TABLET PO ×2 (09:28→10:32)
[2018-09-20] MEDS: ESCITALOPRAM OXALATE 10 MG TAB (LEXAPRO) PO (09:28)
[2018-09-20] MEDS: FAMOTIDINE 20 MG TAB PO (09:28)
[2018-09-20] MEDS: LEVOTHYROXINE 75MCG TABLET (0.075MG) PO (10:32)
[2018-09-20] MEDS: WARFARIN SOD 5 MG TAB PO (17:05)
[2018-09-20] MEDS: OLANZapine 2.5MG TABLET PO (20:23)
[2018-09-21] MEDS: SLF 3 ML SYR IV (05:35)
[2018-09-21 05:47] LABS: BASO # 0.1 10^3/uL (0.0-0.2); EOS # 0.3 10^3/uL (0.0-0.50); HEMATOCRIT 27.9 % (36.0-47.0); HEMOGLOBIN 8.3 g/dl (12.0-15.5); IMMATURE GRANULOCYTE % 0.4 % (0-3.0); LYMPH # 0.8 10^3/uL (1.5-4.5); LYMPH % 14.5 % (24.0-44.0); MEAN CORPUSCULAR HGB CONC 29.7 g/dl (32.0-36.5); MEAN CORPUSCULAR VOLUME 87.5 fl (80.0-96.0); MONO # 0.4 10^3/uL (0.0-0.8); MONO % 7.5 % (0.0-5.0); NEUTROPHILS # 3.7 10^3/uL (1.8-7.7); NEUTROPHILS % 70.6 % (36.0-66.0); PLATELET COUNT, AUTOMATED 250 10^3/uL (150-450); RED BLOOD COUNT 3.19 10^6/uL (4.00-5.40); RED CELL DISTRIBUTION WIDTH 14.4 % (11.5-14.5); WHITE BLOOD COUNT 5.2 10^3/uL (4.0-10.0)
[2018-09-21 05:55] LABS: INR 1.19; PROTHROMBIN TIME 15.3 SECONDS (12.1-14.4)
[2018-09-21 05:56] LABS: PARTIAL THROMBOPLASTIN TIME 33.7 SECONDS (25.4-37.6)
[2018-09-21 06:16] LABS: ANION GAP 7 MEQ/L (8-16); BLOOD UREA NITROGEN 9 MG/DL (7-18); CALCIUM LEVEL 7.9 MG/DL (8.8-10.2); CARBON DIOXIDE LEVEL 27 MEQ/L (21-32); CHLORIDE LEVEL 111 MEQ/L (98-107); CREATININE FOR GFR 0.95 MG/DL (0.55-1.30); GLOMERULAR FILTRATION RATE 59.1 (>32); GLUCOSE, FASTING 92 MG/DL (70-100); POTASSIUM SERUM 3.4 MEQ/L (3.5-5.1); SODIUM LEVEL 145 MEQ/L (136-145)
[2018-09-21] MEDS: POTASSIUM CHLORIDE 10 MEQ SR TABLET PO ×2 (09:14→09:15)
[2018-09-21] MEDS: FAMOTIDINE 20 MG TAB PO (09:15)
[2018-09-21] MEDS: ESCITALOPRAM OXALATE 10 MG TAB (LEXAPRO) PO (09:15)
[2018-09-21] MEDS: PANTOPRAZOLE 40MG INJ (PROTONIX) (C9113) IV (09:15)
[2018-09-21] MEDS: LEVOTHYROXINE 75MCG TABLET (0.075MG) PO (10:51)
== END 2018-09-21 11:36 | DRG 356 ==
LOC: M PCU 09-17 00:21 → M ED 16:36 → M ED INP 19:31
PROVIDERS: Family Medicine
PROC: 0DJ08ZZ Inspection of Upper Intestinal Tract, Via Natural or Artificial Opening Endoscopic (ICD-10-PCS; 2018-09-17 13:00)
PROC: 06H03DZ Insertion of Intraluminal Device into Inferior Vena Cava, Percutaneous Approach (ICD-10-PCS; principal; 2018-09-17 13:32)
PROC: 0DJD8ZZ Inspection of Lower Intestinal Tract, Via Natural or Artificial Opening Endoscopic (ICD-10-PCS; 2018-09-17 13:32)
DX: K92.2 Gastrointestinal hemorrhage, unspecified (principal); J96.00 Acute respiratory failure, unspecified whether with hypoxia or hypercapnia; I26.99 Other pulmonary embolism without acute cor pulmonale; I69.351 Hemiplegia and hemiparesis following cerebral infarction affecting right dominant side; D62 Acute posthemorrhagic anemia; I82.432 Acute embolism and thrombosis of left popliteal vein; I10 Essential (primary) hypertension; F03.90 Unspecified dementia, unspecified severity, without behavioral disturbance, psychotic disturbance, mood disturbance, and anxiety; K64.0 First degree hemorrhoids; K57.30 Diverticulosis of large intestine without perforation or abscess without bleeding; F32.9 Major depressive disorder, single episode, unspecified; E78.5 Hyperlipidemia, unspecified; M19.90 Unspecified osteoarthritis, unspecified site; K29.70 Gastritis, unspecified, without bleeding; E03.9 Hypothyroidism, unspecified; K21.9 Gastro-esophageal reflux disease without esophagitis; K44.9 Diaphragmatic hernia without obstruction or gangrene; Z66 Do not resuscitate; Z88.8 Allergy status to other drugs, medicaments and biological substances; Z79.82 Long term (current) use of aspirin; Z87.891 Personal history of nicotine dependence; Z79.899 Other long term (current) drug therapy

== ENCOUNTER → 2018-09-24 | Outpatient (REF) | payer MEDICARE, MEDICAID ==
[2018-09-24 08:55] LABS: HEMATOCRIT 28.6 % (36.0-47.0); HEMOGLOBIN 8.6 g/dl (12.0-15.5); MEAN CORPUSCULAR HEMOGLOBIN 26.2 pg (27.0-33.0); MEAN CORPUSCULAR HGB CONC 30.1 g/dl (32.0-36.5); MEAN CORPUSCULAR VOLUME 87.2 fl (80.0-96.0); PLATELET COUNT, AUTOMATED 263 10^3/uL (150-450); RED BLOOD COUNT 3.28 10^6/uL (4.00-5.40); RED CELL DISTRIBUTION WIDTH 15.2 % (11.5-14.5); WHITE BLOOD COUNT 4.4 10^3/uL (4.0-10.0)
[2018-09-24 09:13] LABS: INR 1.82; PROTHROMBIN TIME 21.4 SECONDS (12.1-14.4)
[2018-09-24 09:17] LABS: ANION GAP 6 MEQ/L (8-16); BLOOD UREA NITROGEN 14 MG/DL (7-18); CALCIUM LEVEL 8.2 MG/DL (8.8-10.2); CARBON DIOXIDE LEVEL 28 MEQ/L (21-32); CHLORIDE LEVEL 112 MEQ/L (98-107); CREATININE FOR GFR 0.85 MG/DL (0.55-1.30); GLOMERULAR FILTRATION RATE > 60.0 (>32); GLUCOSE, FASTING 97 MG/DL (70-100); POTASSIUM SERUM 3.5 MEQ/L (3.5-5.1); SODIUM LEVEL 146 MEQ/L (136-145)
== END ==
LOC: SKLAB7 07:00
DX: Z86.711 Personal history of pulmonary embolism (principal); Z86.718 Personal history of other venous thrombosis and embolism; D64.9 Anemia, unspecified; Z79.01 Long term (current) use of anticoagulants
CPT/HCPCS: 80048

== ENCOUNTER → 2018-09-29 | Outpatient (REF) | payer MEDICARE, MEDICAID ==
[2018-09-29 08:04] LABS: INR 2.74; PROTHROMBIN TIME 29.6 SECONDS (12.1-14.4)
== END ==
LOC: SKLAB7 09:47
DX: Z86.73 Personal history of transient ischemic attack (TIA), and cerebral infarction without residual deficits (principal); Z79.01 Long term (current) use of anticoagulants
CPT/HCPCS: 85610

== ENCOUNTER → 2018-10-06 | Outpatient (REF) | payer MEDICARE, MEDICAID ==
[2018-10-06 08:23] LABS: PROTHROMBIN TIME 49.6 SECONDS (12.1-14.4)
[2018-10-06 08:32] LABS: INR 5.26
== END ==
LOC: SKLAB7 07:49
DX: I48.91 Unspecified atrial fibrillation (principal); Z79.01 Long term (current) use of anticoagulants
CPT/HCPCS: 85610

== ENCOUNTER → 2018-10-07 | Outpatient (REF) | payer MEDICARE, MEDICAID ==
[2018-10-07 07:28] LABS: INR 4.98; PROTHROMBIN TIME 47.6 SECONDS (12.1-14.4)
== END ==
LOC: SKLAB7 08:00
DX: I48.91 Unspecified atrial fibrillation (principal); Z79.01 Long term (current) use of anticoagulants
CPT/HCPCS: 85610

== ENCOUNTER → 2018-10-08 | Outpatient (REF) | payer MEDICARE, MEDICAID ==
[2018-10-08 07:45] LABS: INR 3.76; PROTHROMBIN TIME 38.1 SECONDS (12.1-14.4)
== END ==
LOC: SKLAB7 08:00
DX: I48.91 Unspecified atrial fibrillation (principal); Z79.01 Long term (current) use of anticoagulants
CPT/HCPCS: 85610

== ENCOUNTER → 2018-10-09 | Outpatient (REF) | payer MEDICARE, MEDICAID ==
[2018-10-09 07:28] LABS: INR 3.06; PROTHROMBIN TIME 32.3 SECONDS (12.1-14.4)
== END ==
LOC: SKLAB7 08:00
DX: I48.91 Unspecified atrial fibrillation (principal); Z79.01 Long term (current) use of anticoagulants
CPT/HCPCS: 85610

== ENCOUNTER → 2018-10-13 | Outpatient (REF) | payer MEDICARE, MEDICAID ==
[2018-10-13 08:34] LABS: INR 2.42; PROTHROMBIN TIME 26.8 SECONDS (12.1-14.4)
== END ==
LOC: SKLAB7 08:45
DX: I48.91 Unspecified atrial fibrillation (principal); Z79.01 Long term (current) use of anticoagulants
CPT/HCPCS: 85610

== ENCOUNTER 2018-10-15 18:41 | Emergency (ER) | payer MEDICARE, MEDICAID ==
[2018-10-15 19:41] LABS: BASO # 0.1 10^3/uL (0.0-0.2); BASO % 0.9 % (0.0-1.0); EOS # 0.3 10^3/uL (0.0-0.50); EOS % 3.7 % (0.0-3.0); HEMATOCRIT 32.2 % (36.0-47.0); HEMOGLOBIN 9.3 g/dl (12.0-15.5); IMMATURE GRANULOCYTE % 0.3 % (0-3.0); LYMPH # 1.1 10^3/uL (1.5-4.5); LYMPH % 16.4 % (24.0-44.0); MEAN CORPUSCULAR HEMOGLOBIN 24.2 pg (27.0-33.0); MEAN CORPUSCULAR HGB CONC 28.9 g/dl (32.0-36.5); MEAN CORPUSCULAR VOLUME 83.6 fl (80.0-96.0); MONO # 0.5 10^3/uL (0.0-0.8); MONO % 6.6 % (0.0-5.0); NEUTROPHILS % 72.1 % (36.0-66.0); PLATELET COUNT, AUTOMATED 314 10^3/uL (150-450); RED BLOOD COUNT 3.85 10^6/uL (4.00-5.40); RED CELL DISTRIBUTION WIDTH 17.6 % (11.5-14.5)
[2018-10-15 19:52] LABS: ANION GAP 7 MEQ/L (8-16); BLOOD UREA NITROGEN 24 MG/DL (7-18); CALCIUM LEVEL 8.2 MG/DL (8.8-10.2); CARBON DIOXIDE LEVEL 28 MEQ/L (21-32); CHLORIDE LEVEL 111 MEQ/L (98-107); CK-MB VALUE MASS < 1.0 NG/ML (<3.6); CPK CREATINE PHOSPHOKINASE 45 U/L (26-192); CREATININE FOR GFR 1.13 MG/DL (0.55-1.30); GLOMERULAR FILTRATION RATE 48.4 (>32); GLUCOSE, FASTING 109 MG/DL (70-100); MB/CK RELATIVE INDEX 2.22 (< OR =4); NT-PRO BNP 375 PG/ML (<450); POTASSIUM SERUM 3.9 MEQ/L (3.5-5.1); SODIUM LEVEL 146 MEQ/L (136-145); TROPONIN I 0.05 NG/ML (< 0.10)
[2018-10-15] MEDS ORDERED: ISOVUE-370 76% 100ML VIAL (Q9967) As Ordered (20:54)
== END 2018-10-16 00:39 | disposition home or self-care (01) ==
LOC: M ED 10-16 00:39
DX: J98.11 Atelectasis (principal); I45.10 Unspecified right bundle-branch block; F03.90 Unspecified dementia, unspecified severity, without behavioral disturbance, psychotic disturbance, mood disturbance, and anxiety; Z86.711 Personal history of pulmonary embolism; I51.7 Cardiomegaly; Z79.01 Long term (current) use of anticoagulants; Z79.899 Other long term (current) drug therapy; Z88.8 Allergy status to other drugs, medicaments and biological substances
CPT/HCPCS: Q9967

== ENCOUNTER → 2018-10-20 | Outpatient (REF) | payer MEDICARE, MEDICAID ==
[~2018-10-20] MED LIST changes: +ASPI-222 PO; +ATOR80TA59 PO; +DULC10SU2 PR; +ENEMENE6 PR; +FAMO1TAB11 PO; +LEXA1TAB2 PO; +MILK12002 PO; +OLAN2.5T PO; +POTA10CA32 PO; +TYLE325T5 PO; +WARF-23 PO
[2018-10-20 07:57] LABS: INR 3.47; PROTHROMBIN TIME 35.7 SECONDS (12.1-14.4)
== END ==
LOC: SKLAB7 07:00
PROVIDERS: ATTEND Family Medicine
DX: I48.91 Unspecified atrial fibrillation (principal)

== ENCOUNTER → 2018-10-27 | Outpatient (REF) | payer MEDICARE, MEDICAID ==
[2018-10-27 08:46] LABS: INR 4.29; PROTHROMBIN TIME 42.2 SECONDS (12.1-14.4)
== END ==
LOC: SKLAB7 07:00
PROVIDERS: ATTEND Family Medicine
DX: I48.91 Unspecified atrial fibrillation (principal)

== ENCOUNTER → 2018-10-29 | Outpatient (REF) | payer MEDICARE, MEDICAID ==
[2018-10-29 08:05] LABS: INR 3.19; PROTHROMBIN TIME 33.4 SECONDS (12.1-14.4)
== END ==
LOC: SKLAB7 07:00
PROVIDERS: ATTEND Family Medicine
DX: I48.91 Unspecified atrial fibrillation (principal)

== ENCOUNTER → 2018-10-31 | Outpatient (REF) | payer MEDICARE, MEDICAID ==
[2018-10-31 07:56] LABS: INR 2.11
== END ==
LOC: SKLAB7 07:00
PROVIDERS: ATTEND Family Medicine
DX: I48.91 Unspecified atrial fibrillation (principal)

== ENCOUNTER → 2018-11-03 | Outpatient (REF) | payer MEDICARE, MEDICAID ==
[2018-11-03 08:40] LABS: INR 1.84; PROTHROMBIN TIME 21.6 SECONDS (12.1-14.4)
== END ==
LOC: SKLAB7 07:07
PROVIDERS: ATTEND Family Medicine
DX: I48.91 Unspecified atrial fibrillation (principal)

== ENCOUNTER → 2018-11-10 | Outpatient (REF) | payer MEDICARE, MEDICAID ==
[~2018-11-10] MED LIST changes: +MILK120011 PO; -MILK12002 PO
[2018-11-10 08:03] LABS: INR 1.62; PROTHROMBIN TIME 19.5 SECONDS (12.1-14.4)
== END ==
LOC: SKLAB7 07:00
PROVIDERS: ATTEND Family Medicine
DX: I48.91 Unspecified atrial fibrillation (principal)

== ENCOUNTER → 2018-11-17 | Outpatient (REF) | payer MEDICARE, MEDICAID ==
[2018-11-17 08:57] LABS: INR 1.87; PROTHROMBIN TIME 21.9 SECONDS (12.1-14.4)
== END ==
LOC: SKLAB7 08:24
PROVIDERS: ATTEND Family Medicine
DX: I48.91 Unspecified atrial fibrillation (principal); E03.9 Hypothyroidism, unspecified

== ENCOUNTER → 2018-11-18 | Outpatient (REF) | payer MEDICARE, MEDICAID ==
[2018-11-18 15:46] LABS: HEMATOCRIT 32.1 % (36.0-47.0); HEMOGLOBIN 8.8 g/dl (12.0-15.5); MEAN CORPUSCULAR HGB CONC 27.4 g/dl (32.0-36.5); MEAN CORPUSCULAR VOLUME 76.4 fl (80.0-96.0); PLATELET COUNT, AUTOMATED 376 10^3/uL (150-450); WHITE BLOOD COUNT 7.2 10^3/uL (4.0-10.0)
[2018-11-18 16:17] LABS: CALCIUM LEVEL 8.4 MG/DL (8.8-10.2); CREATININE FOR GFR 1.13 MG/DL (0.55-1.30); GLOMERULAR FILTRATION RATE 48.4 (>32); POTASSIUM SERUM 3.5 MEQ/L (3.5-5.1)
== END ==
LOC: SKLAB7 14:39
PROVIDERS: ATTEND Family Medicine
DX: F32.9 Major depressive disorder, single episode, unspecified (principal)

== ENCOUNTER → 2018-11-24 | Outpatient (REF) | payer MEDICARE, MEDICAID ==
[2018-11-24 08:42] LABS: INR 1.81; PROTHROMBIN TIME 21.3 SECONDS (12.1-14.4)
== END ==
LOC: SKLAB7 08:00
PROVIDERS: ATTEND Family Medicine
DX: I48.91 Unspecified atrial fibrillation (principal)

== ENCOUNTER → 2018-12-01 | Outpatient (REF) | payer MEDICARE, MEDICAID ==
[2018-12-01 10:51] LABS: INR 3.02
== END ==
LOC: SKLAB7 07:00
PROVIDERS: ATTEND Family Medicine
DX: I48.91 Unspecified atrial fibrillation (principal)

== ENCOUNTER → 2018-12-08 | Outpatient (REF) | payer MEDICARE, MEDICAID ==
[2018-12-08 08:30] LABS: INR 4.27; PROTHROMBIN TIME 42.1 SECONDS (12.1-14.4)
== END ==
LOC: SKLAB7 07:00
PROVIDERS: ATTEND Family Medicine
DX: I48.91 Unspecified atrial fibrillation (principal)

== ENCOUNTER → 2018-12-09 | Outpatient (REF) | payer MEDICARE, MEDICAID ==
--- NOTE | 2018-12-09 13:54 | REP ---
Chest one-view HISTORY: None provided Comparison: 10/15/2018 An increase in interstitial markings is present in the lungs consistent with chronic interstitial fibrosis. The cardiac silhouette is enlarged. The pulmonary vasculature is normal in appearance. Impression: 1. Chronic interstitial fibrosis. 2. Cardiomegaly. Electronically Signed by Rogerio Rossi MD 12/09/2018 01:46 P
[2018-12-09 14:09] LABS: HEMATOCRIT 32.6 % (36.0-47.0); HEMOGLOBIN 9.1 g/dl (12.0-15.5); MEAN CORPUSCULAR HEMOGLOBIN 19.9 pg (27.0-33.0); MEAN CORPUSCULAR HGB CONC 27.9 g/dl (32.0-36.5); MEAN CORPUSCULAR VOLUME 71.2 fl (80.0-96.0); PLATELET COUNT, AUTOMATED 360 10^3/uL (150-450); RED BLOOD COUNT 4.58 10^6/uL (4.00-5.40); WHITE BLOOD COUNT 6.4 10^3/uL (4.0-10.0)
[2018-12-09 14:37] LABS: ALBUMIN 3.4 GM/DL (3.2-5.2); BILIRUBIN,TOTAL 0.3 MG/DL (0.2-1.0); CALCIUM LEVEL 8.6 MG/DL (8.8-10.2); CREATININE FOR GFR 1.06 MG/DL (0.55-1.30); GLOMERULAR FILTRATION RATE 52.1 (>32); TOTAL PROTEIN 6.9 GM/DL (6.4-8.2); TROPONIN I 0.05 NG/ML (< 0.10)
--- NOTE | 2018-12-09 18:53 | ECGEPIP ---
Stationary ECG Study [facility] Test Date: 2018-12-09 Pat Name: RAFAEL GONZALEZ Department: Room: - Gender: F Wine Maker: [facility] : 1930 Requested By: Jesus De Leon Order Number: [id number] Reading MD: Jeanine Conteh Measurements Intervals Bow Rate: 89 P: 23 NC: 148 QRS: -32 QRSD: 149 T: 16 QT: 405 QTc: 495 Interpretive Statements SINUS RHYTHM MARKED LEFT AXIS DEVIATION, Left anterior fascicular block RIGHT BUNDLE BRANCH BLOCK SIMILAR TO 10/15/18 Electronically Signed On 12-09-2018 18:53:07 EST by Jeanine Conteh
== END ==
LOC: SKLAB7 13:09
PROVIDERS: ATTEND Family Medicine
DX: R07.89 Other chest pain (principal); I51.7 Cardiomegaly; J84.112 Idiopathic pulmonary fibrosis

== ENCOUNTER → 2018-12-10 | Outpatient (REF) | payer MEDICARE, MEDICAID ==
[2018-12-10 07:22] LABS: INR 3.11; PROTHROMBIN TIME 32.7 SECONDS (12.1-14.4)
== END ==
LOC: SKLAB7 07:00
PROVIDERS: ATTEND Family Medicine
DX: I48.91 Unspecified atrial fibrillation (principal)

== ENCOUNTER → 2018-12-12 | Outpatient (REF) | payer MEDICARE, MEDICAID ==
[2018-12-12 08:12] LABS: INR 2.95; PROTHROMBIN TIME 31.4 SECONDS (12.1-14.4)
== END ==
LOC: SKLAB7 07:00
PROVIDERS: ATTEND Family Medicine
DX: I48.91 Unspecified atrial fibrillation (principal)

== ENCOUNTER → 2018-12-15 | Outpatient (REF) | payer MEDICARE, MEDICAID ==
[2018-12-15 08:30] LABS: HEMATOCRIT 31.4 % (36.0-47.0); HEMOGLOBIN 8.7 g/dl (12.0-15.5); MEAN CORPUSCULAR HEMOGLOBIN 19.5 pg (27.0-33.0); MEAN CORPUSCULAR HGB CONC 27.7 g/dl (32.0-36.5); MEAN CORPUSCULAR VOLUME 70.4 fl (80.0-96.0); PLATELET COUNT, AUTOMATED 331 10^3/uL (150-450); RED BLOOD COUNT 4.46 10^6/uL (4.00-5.40); WHITE BLOOD COUNT 5.4 10^3/uL (4.0-10.0)
[2018-12-15 08:45] LABS: INR 2.09; PROTHROMBIN TIME 23.9 SECONDS (12.1-14.4)
[2018-12-15 09:02] LABS: CHOLESTEROL RISK RATIO 1.875 (<5)
== END ==
LOC: SKLAB7 09:34
PROVIDERS: ATTEND Family Medicine
DX: I48.91 Unspecified atrial fibrillation (principal); D64.9 Anemia, unspecified; I63.9 Cerebral infarction, unspecified

== ENCOUNTER → 2018-12-22 | Outpatient (REF) | payer MEDICARE, MEDICAID ==
[2018-12-22 07:24] LABS: INR 2.57; PROTHROMBIN TIME 28.1 SECONDS (12.1-14.4)
== END ==
LOC: SKLAB7 10:30
PROVIDERS: ATTEND Family Medicine
DX: I48.91 Unspecified atrial fibrillation (principal)

== ENCOUNTER → 2018-12-23 | Outpatient (REF) | payer MEDICARE, MEDICAID ==
[2018-12-23 07:22] LABS: BASO # 0.1 10^3/uL (0.0-0.2); EOS # 0.4 10^3/uL (0.0-0.50); EOS % 5.9 % (0.0-3.0); HEMOGLOBIN 8.4 g/dl (12.0-15.5); LYMPH # 0.9 10^3/uL (1.5-4.5); MEAN CORPUSCULAR HEMOGLOBIN 19.2 pg (27.0-33.0); MEAN CORPUSCULAR HGB CONC 27.1 g/dl (32.0-36.5); MEAN CORPUSCULAR VOLUME 70.8 fl (80.0-96.0); MONO # 0.4 10^3/uL (0.0-0.8); MONO % 7.2 % (0.0-5.0); NEUTROPHILS # 4.4 10^3/uL (1.8-7.7); NEUTROPHILS % 71.7 % (36.0-66.0); PLATELET COUNT, AUTOMATED 312 10^3/uL (150-450); RED BLOOD COUNT 4.38 10^6/uL (4.00-5.40); WHITE BLOOD COUNT 6.1 10^3/uL (4.0-10.0)
--- NOTE | 2018-12-23 08:44 | REP ---
CHEST, ONE VIEW: HISTORY: Congestion. COMPARISON: 12/09/2018 An increase in interstitial markings is present in the lungs consistent with chronic interstitial fibrosis. The cardiac silhouette is enlarged. The pulmonary vasculature is normal in appearance. IMPRESSION: 1. Chronic interstitial fibrosis. 2. Cardiomegaly. Unreviewed
== END ==
LOC: SKLAB7 07:03
PROVIDERS: ATTEND Family Medicine
DX: R09.81 Nasal congestion (principal); J84.112 Idiopathic pulmonary fibrosis; I51.7 Cardiomegaly

== ENCOUNTER → 2018-12-29 | Outpatient (REF) | payer MEDICARE, MEDICAID ==
[2018-12-29 08:34] LABS: INR 2.63; PROTHROMBIN TIME 28.7 SECONDS (12.1-14.4)
== END ==
LOC: SKLAB7 07:00
PROVIDERS: ATTEND Family Medicine
DX: I48.91 Unspecified atrial fibrillation (principal)

== ENCOUNTER → 2019-01-05 | Outpatient (REF) | payer MEDICARE, MEDICAID ==
[2019-01-05 10:34] LABS: INR 2.69; PROTHROMBIN TIME 29.2 SECONDS (12.1-14.4)
== END ==
LOC: SKLAB7 07:00
PROVIDERS: ATTEND Family Medicine
DX: I48.91 Unspecified atrial fibrillation (principal)

== ENCOUNTER → 2019-01-12 | Outpatient (REF) | payer MEDICARE, MEDICAID ==
[2019-01-12 08:27] LABS: INR 3.19; PROTHROMBIN TIME 33.4 SECONDS (12.1-14.4)
== END ==
LOC: SKLAB7 14:37
PROVIDERS: ATTEND Family Medicine
DX: I48.91 Unspecified atrial fibrillation (principal)

== ENCOUNTER → 2019-01-19 | Outpatient (REF) | payer MEDICARE, MEDICAID ==
[~2019-01-19] MED LIST changes: -OLAN2.5T PO; +OLAN2.5T25 PO
[2019-01-19 08:13] LABS: INR 2.9
== END ==
LOC: SKLAB7 07:00
PROVIDERS: ATTEND Family Medicine
DX: I48.91 Unspecified atrial fibrillation (principal)

== ENCOUNTER → 2019-01-26 | Outpatient (REF) | payer MEDICARE, MEDICAID ==
[2019-01-26 09:02] LABS: INR 2.36; PROTHROMBIN TIME 26.3 SECONDS (12.1-14.4)
== END ==
LOC: SKLAB7 07:00
PROVIDERS: ATTEND Family Medicine
DX: I48.91 Unspecified atrial fibrillation (principal)

== ENCOUNTER → 2019-02-02 | Outpatient (REF) | payer MEDICARE, MEDICAID ==
[2019-02-02 09:32] LABS: INR 2.26; PROTHROMBIN TIME 25.4 SECONDS (12.1-14.4)
== END ==
LOC: SKLAB7 07:00
PROVIDERS: ATTEND Family Medicine
DX: I48.91 Unspecified atrial fibrillation (principal)

== ENCOUNTER → 2019-02-09 | Outpatient (REF) | payer MEDICARE, MEDICAID ==
[2019-02-09 08:30] LABS: INR 2.5; PROTHROMBIN TIME 27.5 SECONDS (12.1-14.4)
[2019-02-09 15:45] LABS: INFLUENZA A AMPLIFICATION POSITIVE (NEGATIVE); INFLUENZA B AMPLIFICATION NEGATIVE (NEGATIVE)
== END ==
LOC: SKLAB7 14:52
PROVIDERS: ATTEND Family Medicine
DX: I48.91 Unspecified atrial fibrillation (principal); R50.9 Fever, unspecified; R09.81 Nasal congestion

== ENCOUNTER → 2019-02-16 | Outpatient (REF) | payer MEDICARE, MEDICAID ==
[2019-02-16 08:48] LABS: INR 2.25; PROTHROMBIN TIME 25.3 SECONDS (12.1-14.4)
== END ==
LOC: SKLAB7 07:00
PROVIDERS: ATTEND Family Medicine
DX: I48.91 Unspecified atrial fibrillation (principal)

== ENCOUNTER → 2019-02-23 | Outpatient (REF) | payer MEDICARE, MEDICAID ==
[2019-02-23 08:39] LABS: INR 2.09; PROTHROMBIN TIME 23.9 SECONDS (12.1-14.4)
== END ==
LOC: SKLAB7 07:00
PROVIDERS: ATTEND Family Medicine
DX: I48.91 Unspecified atrial fibrillation (principal)

== ENCOUNTER → 2019-02-27 | Outpatient (REF) | payer MEDICARE, MEDICAID ==
[2019-02-27 14:29] LABS: CALCIUM LEVEL 8.7 MG/DL (8.8-10.2); CREATININE FOR GFR 1.24 MG/DL (0.55-1.30); GLOMERULAR FILTRATION RATE 43.5 (>32); POTASSIUM SERUM 4.1 MEQ/L (3.5-5.1)
[2019-02-27 14:58] LABS: HEMATOCRIT 43.9 % (36.0-47.0); HEMOGLOBIN 12.5 g/dl (12.0-15.5); MEAN CORPUSCULAR HEMOGLOBIN 23.1 pg (27.0-33.0); MEAN CORPUSCULAR HGB CONC 28.5 g/dl (32.0-36.5); MEAN CORPUSCULAR VOLUME 81.3 fl (80.0-96.0); PLATELET COUNT, AUTOMATED 249 10^3/uL (150-450); WHITE BLOOD COUNT 7.5 10^3/uL (4.0-10.0)
== END ==
LOC: SKLAB7 13:32
PROVIDERS: ATTEND Family Medicine
DX: F33.8 Other recurrent depressive disorders (principal)

== ENCOUNTER → 2019-03-02 | Outpatient (REF) | payer MEDICARE, MEDICAID ==
[2019-03-02 09:26] LABS: INR 2.63; PROTHROMBIN TIME 28.6 SECONDS (12.1-14.4)
== END ==
LOC: SKLAB7 03-02 07:00
PROVIDERS: ATTEND Family Medicine
DX: I48.91 Unspecified atrial fibrillation (principal); Z79.01 Long term (current) use of anticoagulants

== ENCOUNTER → 2019-03-03 | Outpatient (REF) | payer MEDICARE, MEDICAID | LOC: SKLAB7 10:12 | PROVIDERS: ATTEND Family Medicine | DX: R19.5 Other fecal abnormalities (principal) ==

== ENCOUNTER → 2019-03-09 | Outpatient (REF) | payer MEDICARE, MEDICAID ==
[2019-03-09 08:34] LABS: INR 2.11; PROTHROMBIN TIME 24.1 SECONDS (12.1-14.4)
== END ==
LOC: SKLAB7 08:03
PROVIDERS: ATTEND Family Medicine
DX: I48.91 Unspecified atrial fibrillation (principal)

== ENCOUNTER → 2019-03-11 | Outpatient (REF) | payer MEDICARE, MEDICAID ==
[2019-03-11 11:01] LABS: BASO # 0.1 10^3/uL (0.0-0.2); BASO % 0.8 % (0.0-1.0); EOS # 0.3 10^3/uL (0.0-0.50); EOS % 4.4 % (0.0-3.0); HEMATOCRIT 44.2 % (36.0-47.0); HEMOGLOBIN 12.8 g/dl (12.0-15.5); LYMPH # 0.8 10^3/uL (1.5-4.5); LYMPH % 10.7 % (24.0-44.0); MEAN CORPUSCULAR HEMOGLOBIN 24.7 pg (27.0-33.0); MEAN CORPUSCULAR VOLUME 85.3 fl (80.0-96.0); MONO # 0.5 10^3/uL (0.0-0.8); MONO % 5.8 % (0.0-5.0); PLATELET COUNT, AUTOMATED 200 10^3/uL (150-450); RED BLOOD COUNT 5.18 10^6/uL (4.00-5.40); WHITE BLOOD COUNT 7.7 10^3/uL (4.0-10.0)
[2019-03-11 11:04] LABS: INFLUENZA A AMPLIFICATION NEGATIVE (NEGATIVE); INFLUENZA B AMPLIFICATION NEGATIVE (NEGATIVE)
[2019-03-11 11:35] LABS: CALCIUM LEVEL 8.5 MG/DL (8.8-10.2); CREATININE FOR GFR 1.01 MG/DL (0.55-1.30); GLOMERULAR FILTRATION RATE 55.1 (>32); POTASSIUM SERUM 4.6 MEQ/L (3.5-5.1)
--- NOTE | 2019-03-11 14:12 | REP ---
Portable chest x-ray: Single view. History: Chest discomfort. Comparison study: December 23, 2018. Findings: There is a large hiatal hernia again noted behind the heart. The heart itself is mildly enlarged unchanged. The aorta is tortuous. No acute infiltrate is seen in the lung pisano. Pleural angles are sharp. Impression: Large hiatal hernia. Borderline heart size otherwise no acute disease. Electronically Signed by Miguel Ramos MD 03/11/2019 02:03 P
== END ==
LOC: SKLAB7 09:54
PROVIDERS: ATTEND Family Medicine
DX: R07.9 Chest pain, unspecified (principal); R06.9 Unspecified abnormalities of breathing

== ENCOUNTER → 2019-03-16 | Outpatient (REF) | payer MEDICARE, MEDICAID ==
[2019-03-16 09:16] LABS: INR 2.18; PROTHROMBIN TIME 24.6 SECONDS (12.1-14.4)
== END ==
LOC: SKLAB7 08:04
PROVIDERS: ATTEND Family Medicine
DX: I48.91 Unspecified atrial fibrillation (principal)

== ENCOUNTER → 2019-03-23 | Outpatient (REF) | payer MEDICARE, MEDICAID ==
[2019-03-23 08:07] LABS: PROTHROMBIN TIME 23.1 SECONDS (12.1-14.4)
== END ==
LOC: SKLAB7 13:25
PROVIDERS: ATTEND Family Medicine
DX: I48.91 Unspecified atrial fibrillation (principal)

== ENCOUNTER → 2019-03-30 | Outpatient (REF) | payer MEDICARE, MEDICAID ==
[2019-03-30 07:38] LABS: INR 1.85; PROTHROMBIN TIME 21.7 SECONDS (12.1-14.4)
== END ==
LOC: SKLAB7 07:00
PROVIDERS: ATTEND Family Medicine
DX: I48.91 Unspecified atrial fibrillation (principal)

== ENCOUNTER → 2019-04-06 | Outpatient (REF) | payer MEDICARE, MEDICAID ==
[2019-04-06 07:48] LABS: INR 2.14; PROTHROMBIN TIME 24.3 SECONDS (12.1-14.4)
== END ==
LOC: SKLAB7 07:00
PROVIDERS: ATTEND Family Medicine
DX: I48.91 Unspecified atrial fibrillation (principal)

== ENCOUNTER → 2019-04-20 | Outpatient (REF) | payer MEDICARE, MEDICAID ==
[2019-04-20 08:59] LABS: INR 2.11; PROTHROMBIN TIME 23.5 SECONDS (11.8-14.0)
== END ==
LOC: SKLAB7 07:00
PROVIDERS: ATTEND Family Medicine
DX: I48.91 Unspecified atrial fibrillation (principal)

== ENCOUNTER → 2019-04-27 | Outpatient (REF) | payer MEDICARE, MEDICAID ==
[2019-04-27 08:29] LABS: INR 2.34; PROTHROMBIN TIME 25.5 SECONDS (11.8-14.0)
== END ==
LOC: SKLAB7 10:00
PROVIDERS: ATTEND Family Medicine
DX: I48.91 Unspecified atrial fibrillation (principal)

== ENCOUNTER → 2019-05-03 | Outpatient (REF) | payer MEDICARE, MEDICAID ==
[2019-05-03 07:35] LABS: INR 2.49; PROTHROMBIN TIME 26.8 SECONDS (11.8-14.0)
== END ==
LOC: SKLAB7 07:00
PROVIDERS: ATTEND Family Medicine
DX: I48.91 Unspecified atrial fibrillation (principal)

== ENCOUNTER → 2019-05-11 | Outpatient (REF) | payer MEDICARE, MEDICAID ==
[2019-05-11 07:41] LABS: INR 2.32; PROTHROMBIN TIME 25.3 SECONDS (11.8-14.0)
== END ==
LOC: SKLAB7 07:00
PROVIDERS: ATTEND Family Medicine
DX: I48.91 Unspecified atrial fibrillation (principal)

== ENCOUNTER → 2019-05-18 | Outpatient (REF) | payer MEDICARE, MEDICAID ==
[2019-05-18 09:00] LABS: INR 3.12; PROTHROMBIN TIME 32.1 SECONDS (11.8-14.0)
== END ==
LOC: SKLAB7 08:44
PROVIDERS: ATTEND Family Medicine
DX: I48.91 Unspecified atrial fibrillation (principal)

== ENCOUNTER → 2019-05-25 | Outpatient (REF) | payer MEDICARE, MEDICAID ==
[2019-05-25 07:13] LABS: INR 2.29
== END ==
LOC: SKLAB7 08:17
PROVIDERS: ATTEND Family Medicine
DX: I48.91 Unspecified atrial fibrillation (principal)

== ENCOUNTER → 2019-06-01 | Outpatient (REF) | payer MEDICARE, MEDICAID ==
[2019-06-01 08:50] LABS: INR 2.01; PROTHROMBIN TIME 22.6 SECONDS (11.8-14.0)
== END ==
LOC: SKLAB7 07:00
PROVIDERS: ATTEND Family Medicine
DX: E03.9 Hypothyroidism, unspecified (principal); I48.91 Unspecified atrial fibrillation

== ENCOUNTER → 2019-06-08 | Outpatient (REF) | payer MEDICARE, MEDICAID ==
[2019-06-08 08:13] LABS: INR 2.63; PROTHROMBIN TIME 27.9 SECONDS (11.8-14.0)
== END ==
LOC: SKLAB7 08:40
PROVIDERS: ATTEND Family Medicine
DX: I48.91 Unspecified atrial fibrillation (principal)

== ENCOUNTER → 2019-06-15 | Outpatient (REF) | payer MEDICARE, MEDICAID ==
[2019-06-15 08:40] LABS: HEMATOCRIT 46.3 % (36.0-47.0); HEMOGLOBIN 14.5 g/dl (12.0-15.5); MEAN CORPUSCULAR HEMOGLOBIN 30.6 pg (27.0-33.0); MEAN CORPUSCULAR HGB CONC 31.3 g/dl (32.0-36.5); MEAN CORPUSCULAR VOLUME 97.7 fl (80.0-96.0); PLATELET COUNT, AUTOMATED 171 10^3/uL (150-450); RED BLOOD COUNT 4.74 10^6/uL (4.00-5.40); WHITE BLOOD COUNT 5.1 10^3/uL (4.0-10.0)
[2019-06-15 08:50] LABS: INR 2.19; PROTHROMBIN TIME 24.2 SECONDS (11.8-14.0)
[2019-06-15 10:29] LABS: ALBUMIN 3.2 GM/DL (3.2-5.2); BILIRUBIN,TOTAL 0.3 MG/DL (0.2-1.0); CALCIUM LEVEL 8.9 MG/DL (8.8-10.2); CHOLESTEROL RISK RATIO 2.368 (<5); CREATININE FOR GFR 1.01 MG/DL (0.55-1.30); GLOMERULAR FILTRATION RATE 54.9 (>32); POTASSIUM SERUM 3.9 MEQ/L (3.5-5.1); TOTAL PROTEIN 6.4 GM/DL (6.4-8.2)
== END ==
LOC: SKLAB7 07:00
PROVIDERS: ATTEND Family Medicine
DX: I48.91 Unspecified atrial fibrillation (principal); E78.5 Hyperlipidemia, unspecified

== ENCOUNTER → 2019-06-22 | Outpatient (REF) | payer MEDICARE, MEDICAID ==
[2019-06-22 08:20] LABS: INR 1.82; PROTHROMBIN TIME 20.8 SECONDS (11.8-14.0)
== END ==
LOC: SKLAB7 07:00
PROVIDERS: ATTEND Family Medicine
DX: I48.91 Unspecified atrial fibrillation (principal)

== ENCOUNTER → 2019-06-29 | Outpatient (REF) | payer MEDICARE, MEDICAID ==
[2019-06-29 08:21] LABS: INR 2.58; PROTHROMBIN TIME 27.6 SECONDS (11.8-14.0)
== END ==
LOC: SKLAB7 07:00
PROVIDERS: ATTEND Family Medicine
DX: I48.91 Unspecified atrial fibrillation (principal)

== ENCOUNTER → 2019-07-06 | Outpatient (REF) | payer MEDICARE, MEDICAID ==
[~2019-07-06] MED LIST changes: -ASPI-222 PO; +ASPI-527 PO; -OMEP40CA2 PO; +OMEP40CA97 PO
[2019-07-06 08:40] LABS: INR 1.93; PROTHROMBIN TIME 21.9 SECONDS (11.8-14.0)
== END ==
LOC: SKLAB7 14:16
PROVIDERS: ATTEND Family Medicine
DX: I48.91 Unspecified atrial fibrillation (principal)

== ENCOUNTER → 2019-07-13 | Outpatient (REF) | payer MEDICARE, MEDICAID ==
[2019-07-13 08:58] LABS: INR 1.73
== END ==
LOC: SKLAB7 07:00
PROVIDERS: ATTEND Family Medicine
DX: I48.91 Unspecified atrial fibrillation (principal)

== ENCOUNTER → 2019-07-20 | Outpatient (REF) | payer MEDICARE, MEDICAID ==
[2019-07-20 09:10] LABS: INR 2.47; PROTHROMBIN TIME 26.6 SECONDS (11.8-14.0)
== END ==
LOC: SKLAB7 07:00
PROVIDERS: ATTEND Family Medicine
DX: I48.91 Unspecified atrial fibrillation (principal)

== ENCOUNTER → 2019-07-27 | Outpatient (REF) | payer MEDICARE, MEDICAID ==
[~2019-07-27] MED LIST changes: +OMEP40CA2 PO; -OMEP40CA97 PO
[2019-07-27 08:32] LABS: INR 2.91; PROTHROMBIN TIME 30.3 SECONDS (11.8-14.0)
== END ==
LOC: SKLAB7 08:42
PROVIDERS: ATTEND Family Medicine
DX: I48.91 Unspecified atrial fibrillation (principal)

== ENCOUNTER → 2019-08-03 | Outpatient (REF) | payer MEDICARE, MEDICAID ==
[2019-08-03 08:31] LABS: INR 2.48; PROTHROMBIN TIME 26.6 SECONDS (11.8-14.0)
== END ==
LOC: SKLAB7 07:00
PROVIDERS: ATTEND Family Medicine
DX: I48.91 Unspecified atrial fibrillation (principal)

== ENCOUNTER → 2019-08-10 | Outpatient (REF) | payer MEDICARE, MEDICAID ==
[2019-08-10 08:42] LABS: INR 2.87
== END ==
LOC: SKLAB7 07:00
PROVIDERS: ATTEND Family Medicine
DX: I48.91 Unspecified atrial fibrillation (principal)

== ENCOUNTER → 2019-08-17 | Outpatient (REF) | payer MEDICARE, MEDICAID ==
[~2019-08-17] MED LIST changes: -OMEP40CA2 PO; +OMEP40CA97 PO
[2019-08-17 09:32] LABS: INR 2.63
== END ==
LOC: SKLAB7 07:00
PROVIDERS: ATTEND Family Medicine
DX: I48.91 Unspecified atrial fibrillation (principal)

== ENCOUNTER → 2019-08-24 | Outpatient (REF) | payer MEDICARE, MEDICAID ==
[2019-08-24 09:11] LABS: INR 2.18; PROTHROMBIN TIME 24.1 SECONDS (11.8-14.0)
== END ==
LOC: SKLAB7 11:39
PROVIDERS: ATTEND Family Medicine
DX: I48.91 Unspecified atrial fibrillation (principal)

== ENCOUNTER → 2019-08-31 | Outpatient (REF) | payer MEDICARE, MEDICAID ==
[2019-08-31 09:37] LABS: INR 2.58; PROTHROMBIN TIME 27.5 SECONDS (11.8-14.0)
== END ==
LOC: SKLAB7 14:34
PROVIDERS: ATTEND Family Medicine
DX: I48.91 Unspecified atrial fibrillation (principal)

== ENCOUNTER → 2019-09-07 | Outpatient (REF) | payer MEDICARE, MEDICAID ==
[2019-09-07 09:20] LABS: INR 2.06
== END ==
LOC: SKLAB7 11-07 07:00
PROVIDERS: ATTEND Family Medicine
DX: I48.91 Unspecified atrial fibrillation (principal)

== ENCOUNTER → 2019-09-14 | Outpatient (REF) | payer MEDICARE, MEDICAID ==
[2019-09-14 09:25] LABS: INR 1.4; PROTHROMBIN TIME 16.9 SECONDS (11.8-14.0)
== END ==
LOC: SKLAB7 11:11
PROVIDERS: ATTEND Family Medicine
DX: I48.91 Unspecified atrial fibrillation (principal)

== ENCOUNTER → 2019-09-21 | Outpatient (REF) | payer MEDICARE, MEDICAID ==
[2019-09-21 10:17] LABS: INR 1.36; PROTHROMBIN TIME 16.5 SECONDS (11.8-14.0)
== END ==
LOC: SKLAB7 07:00
PROVIDERS: ATTEND Family Medicine
DX: I48.91 Unspecified atrial fibrillation (principal)

== ENCOUNTER → 2019-09-27 | Outpatient (REF) | payer MEDICARE, MEDICAID ==
[2019-09-27 08:13] LABS: INR 2.33; PROTHROMBIN TIME 25.4 SECONDS (11.8-14.0)
== END ==
LOC: SKLAB7 07:00
PROVIDERS: ATTEND Family Medicine
DX: I48.91 Unspecified atrial fibrillation (principal)

== ENCOUNTER → 2019-10-05 | Outpatient (REF) | payer MEDICARE, MEDICAID ==
[2019-10-05 08:32] LABS: HEMOGLOBIN 15.9 g/dl (12.0-15.5); MEAN CORPUSCULAR HEMOGLOBIN 30.8 pg (27.0-33.0); MEAN CORPUSCULAR HGB CONC 31.8 g/dl (32.0-36.5); MEAN CORPUSCULAR VOLUME 96.7 fl (80.0-96.0); PLATELET COUNT, AUTOMATED 135 10^3/uL (150-450); RED BLOOD COUNT 5.17 10^6/uL (4.00-5.40); WHITE BLOOD COUNT 4.7 10^3/uL (4.0-10.0)
[2019-10-05 08:42] LABS: INR 2.85; PROTHROMBIN TIME 29.8 SECONDS (11.8-14.0)
== END ==
LOC: SKLAB7 10:20
PROVIDERS: ATTEND Family Medicine
DX: I48.91 Unspecified atrial fibrillation (principal)

== ENCOUNTER → 2019-10-12 | Outpatient (REF) | payer MEDICARE, MEDICAID ==
[2019-10-12 08:47] LABS: INR 4.37
== END ==
LOC: SKLAB7 07:00
PROVIDERS: ATTEND Family Medicine
DX: Z79.01 Long term (current) use of anticoagulants (principal)

== ENCOUNTER → 2019-10-14 | Outpatient (REF) | payer MEDICARE, MEDICAID ==
[2019-10-14 08:21] LABS: INR 3.58; PROTHROMBIN TIME 35.8 SECONDS (11.8-14.0)
== END ==
LOC: SKLAB7 07:00
PROVIDERS: ATTEND Family Medicine
DX: Z79.01 Long term (current) use of anticoagulants (principal)

== ENCOUNTER → 2019-10-16 | Outpatient (REF) | payer MEDICARE, MEDICAID ==
[2019-10-16 09:21] LABS: INR 1.88; PROTHROMBIN TIME 21.4 SECONDS (11.8-14.0)
== END ==
LOC: SKLAB7 01:19
PROVIDERS: ATTEND Family Medicine
DX: Z79.01 Long term (current) use of anticoagulants (principal)

== ENCOUNTER → 2019-10-19 | Outpatient (REF) | payer MEDICARE, MEDICAID ==
[2019-10-19 09:26] LABS: INR 1.86; PROTHROMBIN TIME 21.2 SECONDS (11.8-14.0)
== END ==
LOC: SKLAB7 10:00
PROVIDERS: ATTEND Family Medicine
DX: I48.91 Unspecified atrial fibrillation (principal)

== ENCOUNTER → 2019-10-23 | Outpatient (REF) | payer MEDICARE, MEDICAID ==
[2019-10-23 07:56] LABS: INR 2.18; PROTHROMBIN TIME 24.1 SECONDS (11.8-14.0)
== END ==
LOC: SKLAB7 07:00
PROVIDERS: ATTEND Family Medicine
DX: I48.91 Unspecified atrial fibrillation (principal)

== ENCOUNTER → 2019-10-26 | Outpatient (REF) | payer MEDICARE, MEDICAID ==
[2019-10-26 08:17] LABS: INR 2.52
== END ==
LOC: SKLAB7 07:00
PROVIDERS: ATTEND Family Medicine
DX: I48.91 Unspecified atrial fibrillation (principal)

== ENCOUNTER → 2019-11-02 | Outpatient (REF) | payer MEDICARE, MEDICAID ==
[2019-11-02 09:37] LABS: INR 2.4
== END ==
LOC: SKLAB7 07:00
PROVIDERS: ATTEND Family Medicine
DX: I48.91 Unspecified atrial fibrillation (principal)

== ENCOUNTER → 2019-11-09 | Outpatient (REF) | payer MEDICARE, MEDICAID ==
[2019-11-09 08:28] LABS: INR 2.28; PROTHROMBIN TIME 24.9 SECONDS (11.8-14.0)
== END ==
LOC: SKLAB7 13:19
PROVIDERS: ATTEND Family Medicine
DX: I48.91 Unspecified atrial fibrillation (principal)

== ENCOUNTER → 2019-11-16 | Outpatient (REF) | payer MEDICARE, MEDICAID ==
[2019-11-16 09:15] LABS: HEMATOCRIT 48.7 % (36.0-47.0); HEMOGLOBIN 15.2 g/dl (12.0-15.5); MEAN CORPUSCULAR HEMOGLOBIN 31.2 pg (27.0-33.0); MEAN CORPUSCULAR HGB CONC 31.2 g/dl (32.0-36.5); PLATELET COUNT, AUTOMATED 136 10^3/uL (150-450); RED BLOOD COUNT 4.87 10^6/uL (4.00-5.40)
[2019-11-16 09:27] LABS: INR 2.16; PROTHROMBIN TIME 23.9 SECONDS (11.8-14.0)
[2019-11-16 09:56] LABS: DIGOXIN LEVEL 0.1 NG/ML (0.5-2.0)
[2019-11-16 11:12] LABS: CALCIUM LEVEL 8.6 MG/DL (8.8-10.2); CREATININE FOR GFR 1.07 MG/DL (0.55-1.30); GLOMERULAR FILTRATION RATE 51.4 (>32); POTASSIUM SERUM 3.9 MEQ/L (3.5-5.1); THYROID STIMULATING HORMONE 1.75 uIU/ML (0.358-3.740)
== END ==
LOC: SKLAB7 09:27
PROVIDERS: ATTEND Family Medicine
DX: I48.91 Unspecified atrial fibrillation (principal)

== ENCOUNTER → 2019-11-23 | Outpatient (REF) | payer MEDICARE, MEDICAID ==
[2019-11-23 10:06] LABS: INR 2.71; PROTHROMBIN TIME 28.6 SECONDS (11.8-14.0)
== END ==
LOC: SKLAB7 09:50
PROVIDERS: ATTEND Family Medicine
DX: I48.91 Unspecified atrial fibrillation (principal)

== ENCOUNTER → 2019-11-30 | Outpatient (REF) | payer MEDICARE, MEDICAID ==
[2019-11-30 08:46] LABS: INR 2.32; PROTHROMBIN TIME 25.3 SECONDS (11.8-14.0)
== END ==
LOC: SKLAB7 07:00
PROVIDERS: ATTEND Family Medicine
DX: I48.91 Unspecified atrial fibrillation (principal)

== ENCOUNTER → 2019-12-07 | Outpatient (REF) | payer MEDICARE, MEDICAID ==
[2019-12-07 08:41] LABS: INR 2.45; PROTHROMBIN TIME 26.4 SECONDS (11.8-14.0)
== END ==
LOC: SKLAB7 07:00
PROVIDERS: ATTEND Family Medicine
DX: I48.91 Unspecified atrial fibrillation (principal)

== ENCOUNTER → 2019-12-14 | Outpatient (REF) | payer MEDICARE, MEDICAID ==
[2019-12-14 08:14] LABS: INR 2.85; PROTHROMBIN TIME 29.8 SECONDS (11.8-14.0)
== END ==
LOC: SKLAB7 07:00
PROVIDERS: ATTEND Family Medicine
DX: I48.91 Unspecified atrial fibrillation (principal)

== ENCOUNTER → 2019-12-21 | Outpatient (REF) | payer MEDICARE, MEDICAID ==
[2019-12-21 09:27] LABS: ALBUMIN 3.4 GM/DL (3.2-5.2); BILIRUBIN,TOTAL 0.4 MG/DL (0.2-1.0); CALCIUM LEVEL 8.7 MG/DL (8.8-10.2); CHOLESTEROL RISK RATIO 2.339 (<5); CREATININE FOR GFR 1.01 MG/DL (0.55-1.30); GLOMERULAR FILTRATION RATE 54.9 (>32); INR 2.93; POTASSIUM SERUM 3.8 MEQ/L (3.5-5.1); PROTHROMBIN TIME 30.5 SECONDS (11.8-14.0); TOTAL PROTEIN 6.6 GM/DL (6.4-8.2)
== END ==
LOC: SKLAB7 07:00
PROVIDERS: ATTEND Family Medicine
DX: I48.91 Unspecified atrial fibrillation (principal); E78.5 Hyperlipidemia, unspecified

== ENCOUNTER → 2019-12-28 | Outpatient (REF) | payer MEDICARE, MEDICAID ==
[2019-12-28 08:52] LABS: INR 3.06; PROTHROMBIN TIME 31.6 SECONDS (11.8-14.0)
== END ==
LOC: SKLAB7 07:00
PROVIDERS: ATTEND Family Medicine
DX: I48.91 Unspecified atrial fibrillation (principal)

== ENCOUNTER → 2020-01-04 | Outpatient (REF) | payer MEDICARE, MEDICAID ==
[2020-01-04 09:03] LABS: INR 2.94; PROTHROMBIN TIME 30.6 SECONDS (11.8-14.0)
== END ==
LOC: SKLAB7 07:00
PROVIDERS: ATTEND Family Medicine
DX: I48.91 Unspecified atrial fibrillation (principal)

== ENCOUNTER → 2020-01-11 | Outpatient (REF) | payer MEDICARE, MEDICAID ==
[2020-01-11 10:24] LABS: INR 4.18; PROTHROMBIN TIME 40.5 SECONDS (11.8-14.0)
== END ==
LOC: SKLAB7 11:28
PROVIDERS: ATTEND Family Medicine
DX: I48.91 Unspecified atrial fibrillation (principal)

== ENCOUNTER → 2020-01-18 | Outpatient (REF) | payer MEDICARE, MEDICAID ==
[2020-01-18 09:20] LABS: INR 2.5; PROTHROMBIN TIME 26.8 SECONDS (11.8-14.0)
== END ==
LOC: SKLAB7 13:31
PROVIDERS: ATTEND Family Medicine
DX: I48.91 Unspecified atrial fibrillation (principal)

== ENCOUNTER → 2020-01-25 | Outpatient (REF) | payer MEDICARE, MEDICAID ==
[2020-01-25 08:35] LABS: INR 2.24; PROTHROMBIN TIME 24.6 SECONDS (11.8-14.0)
== END ==
LOC: SKLAB3 07:00
PROVIDERS: ATTEND Family Medicine
DX: I48.91 Unspecified atrial fibrillation (principal); Z79.01 Long term (current) use of anticoagulants

== ENCOUNTER → 2020-02-01 | Outpatient (REF) | payer MEDICARE, MEDICAID ==
[2020-02-01 06:58] LABS: INR 2.22; PROTHROMBIN TIME 24.4 SECONDS (11.8-14.0)
== END ==
LOC: SKLAB7 07:00
PROVIDERS: ATTEND Family Medicine
DX: I48.91 Unspecified atrial fibrillation (principal)

== ENCOUNTER → 2020-02-08 | Outpatient (REF) | payer MEDICARE, MEDICAID ==
[2020-02-08 09:45] LABS: INR 2.15; PROTHROMBIN TIME 23.8 SECONDS (11.8-14.0)
== END ==
LOC: SKLAB7 07:00
PROVIDERS: ATTEND Family Medicine
DX: I48.91 Unspecified atrial fibrillation (principal)

== ENCOUNTER → 2020-02-15 | Outpatient (REF) | payer MEDICARE, MEDICAID ==
[2020-02-15 09:39] LABS: HEMATOCRIT 47.7 % (36.0-47.0); MEAN CORPUSCULAR HEMOGLOBIN 30.9 pg (27.0-33.0); MEAN CORPUSCULAR HGB CONC 31.4 g/dl (32.0-36.5); MEAN CORPUSCULAR VOLUME 98.4 fl (80.0-96.0); PLATELET COUNT, AUTOMATED 125 10^3/uL (150-450); RED BLOOD COUNT 4.85 10^6/uL (4.00-5.40)
[2020-02-15 09:49] LABS: INR 2.11; PROTHROMBIN TIME 23.4 SECONDS (11.8-14.0)
== END ==
LOC: SKLAB7 07:00
PROVIDERS: ATTEND Family Medicine
DX: I48.91 Unspecified atrial fibrillation (principal); D64.9 Anemia, unspecified

== ENCOUNTER → 2020-02-22 | Outpatient (REF) | payer MEDICARE, MEDICAID ==
[2020-02-22 09:22] LABS: INR 2.16; PROTHROMBIN TIME 23.9 SECONDS (11.8-14.0)
== END ==
LOC: SKLAB7 07:00
PROVIDERS: ATTEND Family Medicine
DX: I48.91 Unspecified atrial fibrillation (principal)

== ENCOUNTER → 2020-02-29 | Outpatient (REF) | payer MEDICARE, MEDICAID ==
[2020-02-29 09:32] LABS: INR 1.76; PROTHROMBIN TIME 20.3 SECONDS (11.8-14.0)
== END ==
LOC: SKLAB7 10:14
PROVIDERS: ATTEND Family Medicine
DX: Z51.81 Encounter for therapeutic drug level monitoring (principal); Z79.01 Long term (current) use of anticoagulants; I48.91 Unspecified atrial fibrillation

== ENCOUNTER → 2020-03-07 | Outpatient (REF) | payer MEDICARE, MEDICAID ==
[2020-03-07 08:44] LABS: INR 2.31; PROTHROMBIN TIME 25.2 SECONDS (11.8-14.0)
== END ==
LOC: SKLAB7 10:06
PROVIDERS: ATTEND Family Medicine
DX: I48.91 Unspecified atrial fibrillation (principal)

== ENCOUNTER → 2020-03-14 | Outpatient (REF) | payer MEDICARE, MEDICAID ==
[2020-03-14 08:27] LABS: INR 3.14; PROTHROMBIN TIME 32.2 SECONDS (11.8-14.0)
== END ==
LOC: SKLAB7 10:06
PROVIDERS: ATTEND Family Medicine
DX: I48.91 Unspecified atrial fibrillation (principal)

== ENCOUNTER → 2020-03-14 | Outpatient (REF) | LOC: SKLAB7 08:47 | PROVIDERS: ATTEND Internal Medicine | DX: Z03.818 Encounter for observation for suspected exposure to other biological agents ruled out (principal) ==

== ENCOUNTER → 2020-03-28 | Outpatient (REF) | payer MEDICARE, MEDICAID ==
[2020-03-28 10:04] LABS: INR 2.67; PROTHROMBIN TIME 28.3 SECONDS (11.8-14.0)
== END ==
LOC: SKLAB7 10:40
PROVIDERS: ATTEND Family Medicine
DX: I48.91 Unspecified atrial fibrillation (principal)

== ENCOUNTER → 2020-04-04 | Outpatient (REF) | payer MEDICARE, MEDICAID ==
[2020-04-04 09:30] LABS: INR 3.06; PROTHROMBIN TIME 31.6 SECONDS (11.8-14.0)
== END ==
LOC: SKLAB7 07:11
PROVIDERS: ATTEND Family Medicine
DX: I48.91 Unspecified atrial fibrillation (principal)

== ENCOUNTER → 2020-04-11 | Outpatient (REF) | payer MEDICARE, MEDICAID ==
[2020-04-11 08:16] LABS: INR 2.34; PROTHROMBIN TIME 25.5 SECONDS (11.8-14.0)
== END ==
LOC: SKLAB7 08:49
PROVIDERS: ATTEND Family Medicine
DX: I48.91 Unspecified atrial fibrillation (principal)

== ENCOUNTER → 2020-04-18 | Outpatient (REF) | payer MEDICARE, MEDICAID ==
[2020-04-18 09:50] LABS: HEMATOCRIT 48.7 % (36.0-47.0); HEMOGLOBIN 15.3 g/dl (12.0-15.5); MEAN CORPUSCULAR HEMOGLOBIN 30.8 pg (27.0-33.0); MEAN CORPUSCULAR HGB CONC 31.4 g/dl (32.0-36.5); PLATELET COUNT, AUTOMATED 129 10^3/uL (150-450); RED BLOOD COUNT 4.97 10^6/uL (4.00-5.40); WHITE BLOOD COUNT 4.5 10^3/uL (4.0-10.0)
[2020-04-18 09:58] LABS: INR 2.17
== END ==
LOC: SKLAB7 09:38
PROVIDERS: ATTEND Family Medicine
DX: I48.91 Unspecified atrial fibrillation (principal); D64.9 Anemia, unspecified

== ENCOUNTER → 2020-04-25 | Outpatient (REF) | payer MEDICARE, MEDICAID ==
[~2020-04-25] MED LIST changes: -ASPI81TA85 PO; +ASPI81TA86 PO
[2020-04-25 09:22] LABS: INR 2.59; PROTHROMBIN TIME 27.6 SECONDS (11.8-14.0)
== END ==
LOC: SKLAB7 13:43
PROVIDERS: ATTEND Family Medicine
DX: I48.91 Unspecified atrial fibrillation (principal)

== ENCOUNTER → 2020-05-02 | Outpatient (REF) | payer MEDICARE, MEDICAID ==
[~2020-05-02] MED LIST changes: +ASPI81TA85 PO; -ASPI81TA86 PO
[2020-05-02 08:29] LABS: INR 2.34; PROTHROMBIN TIME 25.5 SECONDS (11.8-14.0)
== END ==
LOC: SKLAB7 07:00
PROVIDERS: ATTEND Family Medicine
DX: I48.91 Unspecified atrial fibrillation (principal)

== ENCOUNTER → 2020-05-09 | Outpatient (REF) | payer MEDICARE, MEDICAID ==
[2020-05-09 10:04] LABS: INR 2.44; PROTHROMBIN TIME 26.3 SECONDS (11.8-14.0)
== END ==
LOC: SKLAB7 07:00
DX: I48.91 Unspecified atrial fibrillation (principal)